=== PATIENT | male | born 1965 | race American Indian/Alaskan Native ===

== ENCOUNTER 2018-02-09 23:07 | Emergency (ER) | payer MEDICARE ==
[2018-02-09] MEDS ORDERED: ASPIRIN ONE (23:39)
[2018-02-09] MEDS ORDERED: ASPIRIN PO ONE (23:43)
[2018-02-09 23:44] VITALS: BP 119/84
[2018-02-10 00:21] LABS: Basophils # (Auto) 0.1 K/mm3 (0.0-0.1); Basophils % (Auto) 0.6 % (0.0-1.8); Eosinophils # (Auto) 0.2 K/mm3 (0.0-0.4); Eosinophils % (Auto) 2.6 % (0.0-4.3); Hematocrit 45.3 % (35.5-45.6); Hemoglobin 15.2 gm/dl (11.8-15.2); Lymphocytes # (Auto) 2.3 K/mm3 (1.2-5.4); Lymphocytes % (Auto) 28.6 % (13.4-35.0); Mean Corpuscular HGB Conc 34 % (32-34); Mean Corpuscular Hemoglobin 29 pg (28-32); Mean Corpuscular Volume 87 fl (84-94); Monocytes # (Auto) 0.9 K/mm3 (0.0-0.8); Monocytes % (Auto) 11.4 % (0.0-7.3); Platelet Count 154 K/mm3 (140-440); Red Blood Count 5.23 M/mm3 (3.65-5.03); Red Cell Distribution Width 13.2 % (13.2-15.2)
[2018-02-10 00:36] LABS: BUN/Creatinine Ratio 15; Blood Urea Nitrogen 16 mg/dL (9-20); Calcium 9.5 mg/dL (8.4-10.2); Hemolysis Index 8
== END 2018-02-10 02:30 | disposition left against medical advice (07) ==
LOC: ED 23:07
DX: R07.9 Chest pain, unspecified (principal); Z53.21 Procedure and treatment not carried out due to patient leaving prior to being seen by health care provider
CPT/HCPCS: 36415; 80048; 84484; 85025; 93005; 93010

== ENCOUNTER 2019-01-18 09:10 | Emergency (ER) | payer MEDICARE ==
[2019-01-18 09:28] VITALS: BP 140/97
[2019-01-18 09:49] LABS: Bacteria,Urine 1+ /HPF (Negative); Bilirubin,Urine NEG (Negative); Blood,Urine NEG (Negative); Color,Urine Amber (Yellow); Mucus,Urine 3+ /HPF; Sperm,Urine FEW /HPF (NP)
[2019-01-18 09:55] LABS: Benzodiazepines Screen,Urine PRESUMPTIVE NEGATIVE; Methadone Screen,Urine PRESUMPTIVE NEGATIVE; Opiate Screen,Urine PRESUMPTIVE NEGATIVE
[2019-01-18 10:00] LABS: Basophils % (Auto) 0.7 % (0.0-1.8); Eosinophils % (Auto) 0.7 % (0.0-4.3); Hematocrit 41.3 % (35.5-45.6); Lymphocytes # (Auto) 1.1 K/mm3 (1.2-5.4); Lymphocytes % (Auto) 19.2 % (13.4-35.0); Mean Corpuscular HGB Conc 34 % (32-34); Mean Corpuscular Volume 89 fl (84-94); Monocytes # (Auto) 0.7 K/mm3 (0.0-0.8); Monocytes % (Auto) 11.7 % (0.0-7.3); Platelet Count 127 K/mm3 (140-440); Red Blood Count 4.65 M/mm3 (3.65-5.03); Red Cell Distribution Width 12.9 % (13.2-15.2)
[2019-01-18 10:11] LABS: BUN/Creatinine Ratio 18; Blood Urea Nitrogen 16 mg/dL (9-20); Calcium 9.5 mg/dL (8.4-10.2); Hemolysis Index 12
[2019-01-18 10:11] LABS: Amphetamine Screen,Urine PRESUMPTIVE POSITIVE; Cannabinoid Screen,Urine PRESUMPTIVE POSITIVE; Cocaine Screen,Urine PRESUMPTIVE POSITIVE
--- NOTE | 2019-01-18 10:26 | Emergency Department Report ---
HPI - General Chief Complaint: Psych Time Seen by Provider: 01/18/19 10:05 - HPI HPI: [facility] The patient is a 53-year-old male presenting with a chief complaint suicidal ideation. Patient states for the past few days he's had suicidal ideation. The patient has a history of schizophrenia and states that his plan was to hang himself. Patient denies any recent attempts at harming himself Location: Mental state Duration: 2 days Quality: Suicidal Severity: Severe Modifying factors: [see above] Context: [see above] Mode of transportation: [not driving] ED Past Medical Hx - Past Medical History Previous Medical History?: Yes Hx Psychiatric Treatment: Yes (schizophrenia and depression) Additional medical history: acid reflux - Surgical History Past Surgical History?: No - Family History Family history: no significant - Social History Smoking Status: Current Every Day Smoker Substance Use Type: Cocaine - Medications Home Medications: Home Medications Medication Instructions Recorded Confirmed Last Taken Type Buspirone HCl [busPIRone] 15 mg PO QID 05/02/16 05/02/16 Unknown History Duloxetine HCl [DULoxetine] 30 mg PO DAILY 05/02/16 05/02/16 Unknown History QUEtiapine [SEROquel] 200 mg PO QAM 05/02/16 05/02/16 Unknown History Quetiapine Fumarate [QUEtiapine 400 mg PO QHS 05/02/16 05/02/16 Unknown History Fumarate] Ranitidine HCl [Zantac 150 MG TAB] 150 mg PO AC 05/02/16 05/02/16 Unknown History ED Review of Systems ROS: Stated complaint: HEARING VOICES Other details as noted in HPI Constitutional: no symptoms reported Eyes: denies: eye pain ENT: denies: throat pain Respiratory: no symptoms reported Cardiovascular: denies: chest pain Endocrine: no symptoms reported Gastrointestinal: denies: abdominal pain Genitourinary: denies: dysuria Musculoskeletal: denies: back pain Neurological: denies: headache Psychiatric: suicidal thoughts Physical Exam - Physical Exam Vital Signs: Vital Signs 01/18/19 09:20 Temperature 98.3 F Pulse Rate 61 Respiratory 16 Rate Blood Pressure 140/97 [Left] O2 Sat by Pulse 100 Oximetry Physical Exam: GENERAL: The patient is well-developed well-nourished male lying on stretcher not appearing to be in acute distress. [] HEENT: Normocephalic. Atraumatic. Extraocular motions are intact. Patient has moist mucous membranes. NECK: Supple. Trachea midline CHEST/LUNGS: Clear to auscultation. There is no respiratory distress noted. HEART/CARDIOVASCULAR: Regular. There is no tachycardia. There is no gallop rub or murmur. ABDOMEN: Abdomen is soft, nontender. Patient has normal bowel sounds. There is no abdominal distention. SKIN: There is no rash. There is no edema. There is no diaphoresis. NEURO: The patient is awake, alert, and oriented. The patient is cooperative. The patient has no focal neurologic deficits. The patient has normal speech MUSCULOSKELETAL: There is no evidence of acute injury. ED Course Vital Signs 01/18/19 09:20 Temperature 98.3 F Pulse Rate 61 Respiratory 16 Rate Blood Pressure 140/97 [Left] O2 Sat by Pulse 100 Oximetry ED Medical Decision Making - Lab Data Result diagrams: 01/18/19 09:45 01/18/19 09:45 Laboratory Tests 01/18/19 01/18/19 01/18/19 09:30 09:34 09:45 WBC RBC Hgb Hct MCV MCH MCHC RDW Plt Count Lymph % (Auto) [place] % (Auto) Eos % (Auto) Baso % (Auto) Lymph # [place] # Eos # Baso # Seg Neutrophils % Seg Neutrophils # Sodium Potassium Chloride Carbon Dioxide Anion Gap BUN Creatinine Estimated GFR BUN/Creatinine Ratio Glucose Calcium Urine Color [place] Urine Turbidity Clear Urine pH 5.0 Ur Specific [place] 1.033 H Urine Protein 100 mg/dl Urine Glucose (UA) Neg Urine Ketones 20 Urine Blood Neg Urine Nitrite Neg Urine Bilirubin Neg Urine Urobilinogen 4.0 Ur Leukocyte Esterase Neg Urine WBC (Auto) 5.0 Urine RBC (Auto) 2.0 U Epithel Cells (Auto) 1.0 Urine Bacteria (Auto) 1+ Urine Mucus 3+ Urine Sperm Few Salicylates < 0.3 L Urine Opiates Screen Presumptive negative Urine Methadone Screen Presumptive negative Acetaminophen Ur Barbiturates Screen Presumptive negative Ur Phencyclidine Scrn Presumptive negative Ur Amphetamines Screen Presumptive positive U Benzodiazepines Scrn Presumptive negative Urine Cocaine Screen Presumptive positive U Marijuana (THC) Screen Presumptive positive Drugs of Abuse Note Disclamer Plasma/Serum Alcohol 01/18/19 01/18/19 01/18/19 09:45 09:45 09:45 WBC RBC Hgb Hct MCV MCH MCHC RDW Plt Count Lymph % (Auto) [place] % (Auto) Eos % (Auto) Baso % (Auto) Lymph # [place] # Eos # Baso # Seg Neutrophils % Seg Neutrophils # Sodium 143 Potassium 3.8 Chloride 102.7 Carbon Dioxide 25 Anion Gap 19 BUN 16 Creatinine 0.9 Estimated GFR > 60 BUN/Creatinine Ratio 18 Glucose 100 Calcium 9.5 Urine Color Urine Turbidity Urine pH Ur Specific [place] Urine Protein Urine Glucose (UA) Urine Ketones Urine Blood Urine Nitrite Urine Bilirubin Urine Urobilinogen Ur Leukocyte Esterase Urine WBC (Auto) Urine RBC (Auto) U Epithel Cells (Auto) Urine Bacteria (Auto) Urine Mucus Urine Sperm Salicylates Urine Opiates Screen Urine Methadone Screen Acetaminophen < 5.0 L Ur Barbiturates Screen Ur Phencyclidine Scrn Ur Amphetamines Screen U Benzodiazepines Scrn Urine Cocaine Screen U Marijuana (THC) Screen Drugs of Abuse Note Plasma/Serum Alcohol < 0.01 01/18/19 09:45 WBC 5.9 RBC 4.65 Hgb 14.0 Hct 41.3 MCV 89 MCH 30 MCHC 34 RDW 12.9 L Plt Count 127 L Lymph % (Auto) 19.2 [place] % (Auto) 11.7 H Eos % (Auto) 0.7 Baso % (Auto) 0.7 Lymph # 1.1 L [place] # 0.7 Eos # 0.0 Baso # 0.0 Seg Neutrophils % 67.7 Seg Neutrophils # 4.0 Sodium Potassium Chloride Carbon Dioxide Anion Gap BUN Creatinine Estimated GFR BUN/Creatinine Ratio Glucose Calcium Urine Color Urine Turbidity Urine pH Ur Specific [place] Urine Protein Urine Glucose (UA) Urine Ketones Urine Blood Urine Nitrite Urine Bilirubin Urine Urobilinogen Ur Leukocyte Esterase Urine WBC (Auto) Urine RBC (Auto) U Epithel Cells (Auto) Urine Bacteria (Auto) Urine Mucus Urine Sperm Salicylates Urine Opiates Screen Urine Methadone Screen Acetaminophen Ur Barbiturates Screen Ur Phencyclidine Scrn Ur Amphetamines Screen U Benzodiazepines Scrn Urine Cocaine Screen U Marijuana (THC) Screen Drugs of Abuse Note Plasma/Serum Alcohol - Differential Diagnosis suicidal ideation Critical care attestation.: If time is entered above; I have spent that time in minutes in the direct care of this critically ill patient, excluding procedure time. ED Disposition Clinical Impression: Suicidal ideation, Cocaine abuse Disposition: [id number] PSY HOSP/PSY UNIT Is pt being admited?: No Does the pt Need Aspirin: No Condition: Serious Time of Disposition: 10:27 (awaiting acceptance)
[2019-01-18] MEDS ORDERED: BENADRYL IM PRN (13:08)
[2019-01-18] MEDS ORDERED: ATIVAN IM PRN (13:08)
[2019-01-18] MEDS ORDERED: HALDOL IM PRN (13:08)
== END 2019-01-18 18:22 | disposition home or self-care (01) ==
LOC: EEVIPCON 09:10 → ED 09:10
DX: F32.9 Major depressive disorder, single episode, unspecified (principal); F20.9 Schizophrenia, unspecified; F14.10 Cocaine abuse, uncomplicated; F17.200 Nicotine dependence, unspecified, uncomplicated
CPT/HCPCS: 36415; 80048; 80307; 81001; 85025; 99284; G0480; 80320

== ENCOUNTER 2019-01-18 17:05 | Inpatient (IN) | payer MEDICARE ==
[2019-01-18] MEDS ORDERED: VISTARIL PO PRN (17:26)
[2019-01-18] MEDS ORDERED: HALDOL IM PRN (20:47)
[2019-01-18] MEDS ORDERED: HALDOL PO PRN (20:47)
[2019-01-18] MEDS ORDERED: ATIVAN PO PRN (20:48)
[2019-01-18] MEDS ORDERED: ATIVAN IM PRN (20:48)
[2019-01-19 09:15] LABS: Chol/HDL Ratio 3.97 %
[2019-01-19] MEDS: HABITROL TD SCH (12:09)
--- NOTE | 2019-01-19 13:55 | History and Physical Report ---
GP History & Physical - History of Present Illness Date of admission: 01/18/19 Date of Examination: 01/19/19 Reason for Admission: Danger to self, Impaired reality testing, Psychopathology interference, Severe anxiety/depression Chief Complaint: Hearing voices to kill myself, depressed and suicidal. History of Present Illness: The patient is a 53yo single disabled AAM with history of Schizophrenia, Depression and Cocaine use disorder. He presents with severely depressed mood, suicidal thoughts with plans and intent, auditory hallucinations commanding him to kill himself, paranoia after he relapsed to smoking Crack Cocaine following a year of being abstinent. In my interview with the patient he reports that he started using Crack Cocaine 4 days ago, smoked daily, endorses racing thoughts, inability to sleep, feeling very paranoid and auditory hallucinations. He is very distressed by these experiences leading him to consider killing himself by cutting his wrist. He denies abusing other substances but UDS was positive with Cocaine, THC and Amphetamines. He denies homicidal thoughts. No panic attacks. No symptoms suggestive of OCD or PTSD. In the past he found Seroquel beneficial and wants to resume taking it. Legal Status: Voluntary Patient Problems: Current Active Problems Cocaine use disorder (Acute) Major depress, sev w/ psych (Acute) Paranoid schizophrenia (Acute) Reaction to Hospitalization: Accepting Substance History - Substance History Drug Use: cocaine, marijuana, methamphetamine Hx Tobacco Use: Yes Tobacco Type: Cigarettes Cigarettes Packs Per Day: 1 Alcohol Use: No Past psychiatric history - Past Medical History Past Medical History: GERD - past Psychiatric treatment and history Psych: Addictions, Depression, Schizophrenia - Social History Social history: single, lives with family, smoking Review of Systems All systems: negative Psychiatric: suicidal ideation, hallucinations, paranoia, depression, difficulties concentrating Results - Results Labs/Vitals: Laboratory Last Values 5.2 % (4-6) 01/18/19 09:45 Triglycerides 59 mg/dL (2-149) 01/19/19 08:41 Cholesterol 179 mg/dL (50-199) 01/19/19 08:41 138 mg/dL (50-130) H 01/19/19 08:41 45 mg/dL (40-59) 01/19/19 08:41 3.97 % 01/19/19 08:41 Last Vital Signs Temp 98.7 F 01/19/19 09:31 Pulse 67 01/19/19 09:31 Resp 18 01/19/19 07:00 BP 100/58 01/19/19 09:31 Pulse Ox 99 01/19/19 09:31 Physical Examination - Constitutional Vitals: Vital Signs Temp Pulse Resp BP Pulse Ox 98.7 F 67 18 100/58 99 01/19/19 09:31 01/19/19 09:31 01/19/19 07:00 01/19/19 09:31 01/19/19 09:31 Temperature -Last 24 Hours Temperature 98.7 F Temperature 98.7 F Temperature 97.6 F Temperature 98.6 F Temperature 98.6 F General appearance: Present: no acute distress - EENT Eyes: Present: PERRL, EOM intact ENT: hearing intact, clear oral mucosa - Neck Neck: Present: supple, normal ROM - Respiratory Respiratory effort: normal Mental Status Exam - Vital signs Last Vital Signs Temp 98.7 F 01/19/19 09:31 Pulse 67 01/19/19 09:31 Resp 18 01/19/19 07:00 BP 100/58 01/19/19 09:31 Pulse Ox 99 01/19/19 09:31 - Exam Orientation: time, place, person Affect: depressed Mood: congruent with affect Thought content: delusions, paranoia Thought Process: Intact Perceptions: hallucinations Speech: normal rate and pattern Concentration: focused Motor activity: lethargic Level of consciousness: alert Memory: Intact Sleep Symptoms: Difficulty Falling Asleep Interaction: cooperative Mini mental status exam(if necessary): 24-30 Assessment and Plan - Psychiatric problem (1) Paranoid schizophrenia Current Visit: Yes Status: Acute (2) Cocaine use disorder Current Visit: Yes Status: Acute (3) Major depress, sev w/ psych Current Visit: Yes Status: Acute Physician Certification - Certification Statement Physician Certification Statement: This is an acknowledgement statement that JER MELGAR is a 53 year old M who requires inpatient psychiatric admission for treatment which could reasonably be expected to improve the patient's condition for Schizophrenia Estimated period of time patient will need to remain in the hospital: 7 Plan for post-hospital care: Outpatient Care PLAN Patient will be admitted for inpatient psychiatric evaluation, medication adjustment and close monitoring The patient's behavior, mood, sleep and appetite will be closely monitored. Patient will be enrolled in individual and group therapeutic sessions and encouraged to attend. Patient will be provided with a safe and structured environment. Patient's physical health needs will be addressed by the Hospitalist. Social Assessment will be completed and the Senior Merchandiser will work with patient and family to ensure a suitable and safe disposition Medication adjustment will be made as clinically indicated Seroquel resumed at home dose. The patient agreed on the treatment plan, understood the risk, benefit, alternative treatment, potential consequence of no treatment, and gave informed consent.
[2019-01-19] MEDS ORDERED: NON-FORMULARY (Ranitidine Hcl [Zantac] 150 MG) PO SCH (16:30)
[2019-01-19] MEDS: CYMBALTA PO SCH (17:37)
[2019-01-19] MEDS: PEPCID PO SCH (21:28)
[2019-01-19] MEDS ORDERED: NON-FORMULARY (Quetiapine Fumarate [Quetiapine Fumarate] 400 MG) PO SCH (22:00)
[2019-01-20] MEDS: PEPCID PO SCH ×2 (09:34→21:06)
[2019-01-20] MEDS: CYMBALTA PO SCH (09:34)
[2019-01-20] MEDS: HABITROL TD SCH (09:35)
--- NOTE | 2019-01-20 10:47 | Progress Note ---
Subjective Date of service: 01/20/19 Principal diagnosis: Paranoid Schizophrenia, Cocaine use disorder Subjective Comment: Patient reports feeling over-sedated. He wants to take Seroquel only at night. He reports feeling depressed and suicidal. He endorses auditory hallucinations - hears voices telling him to kill himself. He also endorses felling paranoid. Objective - Criteria for Continued Treatment Criteria for Continued Treatment: Improving Level of Functioning, Reducing Isolative Behaviors, Understanding Diagnosis and need for Medication, Improving Treatment / Medication Compliance, Stablizing Level of Functioning, Improving Emotional/Socia - Mental Status Mental Status: Oriented x 3 - Objective Observation Participation Level: Moderate Assessment and Plan - Patient Problems (1) Paranoid schizophrenia Current Visit: Yes Status: Acute (2) Cocaine use disorder Current Visit: Yes Status: Acute (3) Major depress, sev w/ psych Current Visit: Yes Status: Acute Plan to address problem: PLAN: Continue inpatient treatment for medication adjustment and close monitoring The patient's behavior, mood, sleep and appetite will be closely monitored. Patient will be enrolled in individual and group therapeutic sessions and encouraged to attend. Patient will be provided with a safe and structured environment. Patient's physical health needs will be addressed by the Hospitalist. Social Assessment will be completed and the Vrt Mechanic will work with patient and family to ensure a suitable and safe disposition Medication adjustment will be made as clinically indicated Will decrease Seroquel to 200mg qhs due to excessive sedation The patient agreed on the treatment plan, understood the risk, benefit, alternative treatment, potential consequence of no treatment, and gave informed consent.
[2019-01-21] MEDS: HABITROL TD SCH (11:01)
[2019-01-21] MEDS: CYMBALTA PO SCH (11:01)
[2019-01-21] MEDS: PEPCID PO SCH ×2 (11:02→21:00)
--- NOTE | 2019-01-21 19:03 | Progress Note ---
Subjective Date of service: 01/21/19 Principal diagnosis: Paranoid Schizophrenia, Cocaine use disorder Subjective Comment: Patient wants his dose of Seroquel increased. He continues to feel depressed and suicidal. He endorses auditory hallucinations - hears voices telling him to kill himself. He also endorses felling paranoid. He reports that his mind is racing. He received PRN Ativan for anxiety and found it beneficial. He is compliant with medications and denies side effects. Objective - Criteria for Continued Treatment Criteria for Continued Treatment: Improving Level of Functioning, Reducing Isolative Behaviors, Improving Treatment / Medication Compliance, Stablizing Level of Functioning, Improving Emotional/Socia - Mental Status Mental Status: Oriented x 3 - Objective Observation Participation Level: Moderate Assessment and Plan - Patient Problems (1) Paranoid schizophrenia Current Visit: Yes Status: Acute (2) Cocaine use disorder Current Visit: Yes Status: Acute (3) Major depress, sev w/ psych Current Visit: Yes Status: Acute Plan to address problem: PLAN: Continue inpatient treatment for medication adjustment and close monitoring The patient's behavior, mood, sleep and appetite will be closely monitored. Patient will be enrolled in individual and group therapeutic sessions and encouraged to attend. Patient will be provided with a safe and structured environment. Patient's physical health needs will be addressed by the Hospitalist. Social Assessment will be completed and the Graduate Teaching Associate will work with patient and family to ensure a suitable and safe disposition Medication adjustment will be made as clinically indicated Seroquel increased to 100mg bid per patient's request The patient agreed on the treatment plan, understood the risk, benefit, alternative treatment, potential consequence of no treatment, and gave informed consent.
[2019-01-22] MEDS: HABITROL TD SCH (10:05)
[2019-01-22] MEDS: CYMBALTA PO SCH (10:09)
[2019-01-22] MEDS: PEPCID PO SCH ×2 (10:09→21:10)
[2019-01-22] MEDS: WELLBUTRIN XL PO SCH (17:16)
--- NOTE | 2019-01-23 06:46 | Progress Note ---
Subjective Date of service: 01/22/19 Principal diagnosis: Paranoid Schizophrenia, Cocaine use disorder Subjective Comment: Patient reports no improvement. He continues to feel depressed and suicidal. He endorses auditory hallucinations - hears voices telling him to kill himself. He also endorses felling paranoid. He is compliant with medications and denies side effects. Objective - Criteria for Continued Treatment Criteria for Continued Treatment: Improving Level of Functioning, Reducing Isolative Behaviors, Improving Treatment / Medication Compliance, Stablizing Level of Functioning, Improving Emotional/Socia - Mental Status Mental Status: Oriented x 3 - Objective Observation Participation Level: Moderate Assessment and Plan - Patient Problems (1) Paranoid schizophrenia Current Visit: Yes Status: Acute (2) Cocaine use disorder Current Visit: Yes Status: Acute (3) Major depress, sev w/ psych Current Visit: Yes Status: Acute Plan to address problem: PLAN: Continue inpatient treatment for medication adjustment and close monitoring The patient's behavior, mood, sleep and appetite will be closely monitored. Patient will be enrolled in individual and group therapeutic sessions and encouraged to attend. Patient will be provided with a safe and structured environment. Patient's physical health needs will be addressed by the Hospitalist. Social Assessment will be completed and the Cashier Greeter will work with patient and family to ensure a suitable and safe disposition Medication adjustment will be made as clinically indicated Seroquel increased to 100mg tid for psychosis and mood. Wellbutrin XL 150mg qam started. The patient agreed on the treatment plan, understood the risk, benefit, alternative treatment, potential consequence of no treatment, and gave informed consent.
[2019-01-23] MEDS: PEPCID PO SCH (09:34)
[2019-01-23] MEDS: CYMBALTA PO SCH (09:34)
[2019-01-23] MEDS: WELLBUTRIN XL PO SCH (09:35)
[2019-01-23] MEDS: HABITROL TD SCH (09:35)
--- NOTE | 2019-01-23 10:45 | Progress Note ---
Subjective Date of service: 01/23/19 Principal diagnosis: Paranoid Schizophrenia, Cocaine use disorder Subjective Comment: Patient reports no improvement. He continues to feel depressed and suicidal. He endorses auditory hallucinations - hears voices telling him to kill himself. He also endorses being paranoid. He is compliant with medications and denies side effects. Objective - Criteria for Continued Treatment Criteria for Continued Treatment: Improving Level of Functioning, Improving Treatment / Medication Compliance, Stablizing Level of Functioning, Improving Emotional/Socia - Mental Status Mental Status: Oriented x 3 - Objective Observation Participation Level: Minimal Reason(s) For Not Participating: Behaviors Assessment and Plan - Patient Problems (1) Paranoid schizophrenia Current Visit: Yes Status: Acute (2) Cocaine use disorder Current Visit: Yes Status: Acute (3) Major depress, sev w/ psych Current Visit: Yes Status: Acute Plan to address problem: PLAN: Continue inpatient treatment for medication adjustment and close monitoring The patient's behavior, mood, sleep and appetite will be closely monitored. Patient will be enrolled in individual and group therapeutic sessions and encouraged to attend. Patient will be provided with a safe and structured environment. Patient's physical health needs will be addressed by the Hospitalist. Social Assessment will be completed and the Mail Machine Operator will work with patient and family to ensure a suitable and safe disposition Medication adjustment will be made as clinically indicated Continue Seroquel 100mg tid for psychosis and mood. Wellbutrin XL 150mg qam for depression The patient agreed on the treatment plan, understood the risk, benefit, alternative treatment, potential consequence of no treatment, and gave informed consent.
[2019-01-23] MEDS: PROTONIX PO SCH (21:01)
[2019-01-24] MEDS: HABITROL TD SCH (10:00)
--- NOTE | 2019-01-24 10:01 | Progress Note ---
Subjective Date of service: 01/24/19 Principal diagnosis: Paranoid Schizophrenia, Cocaine use disorder Subjective Comment: Patient reports some improvement but continues to feel depressed and suicidal. He endorses auditory hallucinations - hears voices telling him to kill himself. He also endorses being paranoid. He is compliant with medications and denies side effects. He consents to increasing his anti-depressant. Objective - Criteria for Continued Treatment Criteria for Continued Treatment: Improving Level of Functioning, Reducing Isolative Behaviors, Stablizing Level of Functioning, Improving Emotional/Socia - Mental Status Mental Status: Oriented x 3 - Objective Observation Participation Level: Minimal Reason(s) For Not Participating: Not Feeling Well Assessment and Plan - Patient Problems (1) Paranoid schizophrenia Current Visit: Yes Status: Acute (2) Cocaine use disorder Current Visit: Yes Status: Acute (3) Major depress, sev w/ psych Current Visit: Yes Status: Acute Plan to address problem: PLAN: Continue inpatient treatment for medication adjustment and close monitoring The patient's behavior, mood, sleep and appetite will be closely monitored. Patient will be enrolled in individual and group therapeutic sessions and encou raged to attend. Patient will be provided with a safe and structured environment. Patient's physical health needs will be addressed by the Hospitalist. Social Assessment will be completed and the Health Insurance Sales Agent will work with patient and family to ensure a suitable and safe disposition Medication adjustment will be made as clinically indicated Continue Seroquel 100mg tid for psychosis and mood. Continue Wellbutrin XL 150mg qam for depression Increase Cymbalta to 90mg qd for depression The patient agreed on the treatment plan, understood the risk, benefit, alternative treatment, potential consequence of no treatment, and gave informed consent.
[2019-01-24] MEDS: CYMBALTA PO SCH ×2 (10:03→13:31)
[2019-01-24] MEDS: PROTONIX PO SCH ×2 (10:03→21:35)
[2019-01-24] MEDS: WELLBUTRIN XL PO SCH (10:06)
[2019-01-24] MEDS: DESYREL PO PRN (22:40)
[2019-01-25] MEDS: WELLBUTRIN XL PO SCH (09:53)
[2019-01-25] MEDS: PROTONIX PO SCH ×2 (09:54→21:25)
[2019-01-25] MEDS: CYMBALTA PO SCH (09:54)
[2019-01-25] MEDS: HABITROL TD SCH (09:56)
--- NOTE | 2019-01-25 10:27 | Progress Note ---
Subjective Date of service: 01/25/19 Principal diagnosis: Paranoid Schizophrenia, Cocaine use disorder Subjective Comment: Patient reports improvement in his mood. He completely denies SI/HI/AVH/Paranoia. He is compliant with medications and denies side effects. Will discharge in am tomorrow if he continues to do well. Objective - Criteria for Continued Treatment Criteria for Continued Treatment: Improving Level of Functioning, Stablizing Level of Functioning, Improving Emotional/Socia, Decreasing Frequency of Hospitalization - Mental Status Mental Status: Oriented x 3 - Objective Observation Participation Level: Full Assessment and Plan - Patient Problems (1) Paranoid schizophrenia Current Visit: Yes Status: Acute (2) Cocaine use disorder Current Visit: Yes Status: Acute (3) Major depress, sev w/ psych Current Visit: Yes Status: Acute Plan to address problem: PLAN: Continue inpatient treatment for medication adjustment and close monitoring The patient's behavior, mood, sleep and appetite will be closely monitored. Patient will be enrolled in individual and group therapeutic sessions and encouraged to attend. Patient will be provided with a safe and structured environment. Patient's physical health needs will be addressed by the Hospitalist. Social Assessment will be completed and the Tier And Detonator will work with patient and family to ensure a suitable and safe disposition Medication adjustment will be made as clinically indicated Continue Seroquel 100mg tid for psychosis and mood. Continue Wellbutrin XL 150mg qam for depression Increase Cymbalta to 90mg qd for depression The patient agreed on the treatment plan, understood the risk, benefit, [place] treatment, potential consequence of no treatment, and gave informed consent.
[2019-01-25] MEDS: DESYREL PO PRN (21:25)
[2019-01-26 09:00] VITALS: BP 123/70
[2019-01-26] MEDS: PROTONIX PO SCH (09:06)
[2019-01-26] MEDS: CYMBALTA PO SCH (09:07)
[2019-01-26] MEDS: HABITROL TD SCH (09:08)
[2019-01-26] MEDS: WELLBUTRIN XL PO SCH (09:08)
--- NOTE | 2019-01-26 11:00 | Discharge Summary ---
Providers - Providers Date of Admission: 01/18/19 18:41 Date of discharge: 01/26/19 Attending physician: LLUVIA BARRETT MD 01/18/19 17:15 Consult to Physician [CONS] Routine Comment: Consulting Provider: JONATHON WALLS Physician Instructions: History & Physical Reason For Exam: medical management 01/23/19 08:03 Consult to Dietitian/Nutrition [CONS] Routine Physician Instructions: Reason For Exam: Reason for Consult: Pt needs oral supplement [facility] Reason for admission: depressed mood, suicidal, auditory hallucinations and paranoia Condition: Good Hospital course: The patient was provided inpatient psychiatric treatment with safe and supp ortive environment, group therapy, individual counseling, psychiatric medication, medication adjustment, adverse effect monitor, medical evaluation, medical treatment, social service assessment, family/social support meeting, placement assessment and psycho-education. The patients mood, anxiety, thoughts, stress management skill, cognition, impulse/anger control, motivation, understanding of disease, compliance to treatment and appreciation on family/social support are improved and stabilized. At the time of discharge, the patient had no suicidal ideas, no homicidal ideas, no aggressive thoughts, no endangering behavior and no debilitating adverse effects. The patient agreed on the treatment plan, understood the risk, benefit, alternative treatment, potential consequence of no treatment, and gave informed consent. The patient was advised to be compliant with medications, not to use drugs and not to drink alcohol. The patient understands that if suicidal ideas, homicidal ideas, or any endangering thoughts arise, the patient should immediately seek for emergent assistance including but not limited to crisis hot line and emergency room. Follow up with out-patient Psychiatrist and PCP within 14 - 21 days of discharge. Disposition: DC-01 TO HOME OR SELFCARE Allergies/Adverse Reactions: Allergies No Known Allergies Allergy (Verified 10/26/15 19:54) Vital Signs: Last Vital Signs Temp 98.3 F 01/26/19 09:33 Pulse 69 01/26/19 09:33 Resp 16 01/26/19 09:33 BP 123/70 01/26/19 09:33 Pulse Ox 99 01/26/19 09:33 Last Lab: Laboratory Last Values 5.2 % (4-6) 01/18/19 09:45 Triglycerides 59 mg/dL (2-149) 01/19/19 08:41 Cholesterol 179 mg/dL (50-199) 01/19/19 08:41 138 mg/dL (50-130) H 01/19/19 08:41 45 mg/dL (40-59) 01/19/19 08:41 3.97 % 01/19/19 08:41 - Discharge Diagnoses (1) Paranoid schizophrenia Status: Acute (2) Cocaine use disorder Status: Acute (3) Major depress, sev w/ psych Status: Acute Core Measure Documentation - Palliative Care Palliative Care/ Comfort Measures: Not Applicable - Core Measures Any of the following diagnoses?: none - VTE Discharge Requirements Deep Vein Thrombosis/Pulmonary Embolism Present on Admission: No Has pt received <5 days of overlap therapy or INR<2.0: No Anticoagulant overlap therapy prescribed at discharge: No Contraindication No Overlap Therapy order at DC: Not Indicated Exam - Constitutional Vitals: Temp Pulse Resp BP Pulse Ox 98.3 F 69 16 123/70 99 01/26/19 09:33 01/26/19 09:33 01/26/19 09:33 01/26/19 09:33 01/26/19 09:33 General appearance: Present: no acute distress - EENT Eyes: Present: PERRL, EOM intact ENT: hearing intact, clear oral mucosa - Neck Neck: Present: supple, normal ROM - Respiratory Respiratory effort: normal Plan Activity: no restrictions Weight Bearing Status: Weight Bear as Tolerated Diet: regular Follow up with: MARIE LAI MD [Primary Care Provider] - 7 Days Prescriptions: traZODone [Desyrel] 50 mg PO QHS PRN #30 tablet PRN Reason: Insomnia DULoxetine [Cymbalta] 90 mg PO DAILY #90 capsule QUEtiapine [SEROquel] 100 mg PO TID #90 tablet hydrOXYzine PAMOATE [Vistaril] 50 mg PO Q6H PRN #60 capsule PRN Reason: Anxiety buPROPion XL [Wellbutrin XL] 150 mg PO QDAY #30 tablet
== END 2019-01-26 12:00 | disposition home or self-care (01) | DRG 885 ==
LOC: 3A 17:05 → UNDOADMIN 17:05 → 5A 18:41
PROVIDERS: ADMIT Psychiatry & Neurology Psychiatry; ATTEND Psychiatry & Neurology Psychiatry
DX: F32.3 Major depressive disorder, single episode, severe with psychotic features (principal); F17.210 Nicotine dependence, cigarettes, uncomplicated; K21.9 Gastro-esophageal reflux disease without esophagitis; F15.90 Other stimulant use, unspecified, uncomplicated; F14.988 Cocaine use, unspecified with other cocaine-induced disorder; F12.90 Cannabis use, unspecified, uncomplicated
CPT/HCPCS: 36415; 80048; 80061; 80307; 80320; 81001; 83036; 85025; G0378; G0480; Q0177

== ENCOUNTER 2019-03-19 12:21 | Emergency (ER) | payer MEDICARE ==
--- NOTE | 2019-03-19 12:42 | Event Note ---
ED Screening Note Date of service: 03/19/19 Time: 12:39 ED Screening Note: 53 y/o male comes in for SI. Reports that he hear voices to harm himself. Has been off his medication in a week. This initial assessment/diagnostic orders/clinical plan/treatment(s) is/are subject to change based on patients health status, clinical progression and re- assessment by fellow clinical providers in the ED. Further treatment and workup at subsequent clinical providers discretion. Patient/guardian urged not to elope from the ED as their condition may be serious if not clinically assessed and managed. Initial orders include:
[2019-03-19 13:28] LABS: Basophils % (Auto) 0.8 % (0.0-1.8); Eosinophils # (Auto) 0.2 K/mm3 (0.0-0.4); Eosinophils % (Auto) 2.9 % (0.0-4.3); Hematocrit 44.1 % (35.5-45.6); Hemoglobin 14.7 gm/dl (11.8-15.2); Lymphocytes # (Auto) 1.5 K/mm3 (1.2-5.4); Lymphocytes % (Auto) 28.2 % (13.4-35.0); Mean Corpuscular HGB Conc 34 % (32-34); Mean Corpuscular Hemoglobin 30 pg (28-32); Mean Corpuscular Volume 89 fl (84-94); Monocytes # (Auto) 0.6 K/mm3 (0.0-0.8); Monocytes % (Auto) 10.3 % (0.0-7.3); Platelet Count 146 K/mm3 (140-440); Red Blood Count 4.97 M/mm3 (3.65-5.03); Red Cell Distribution Width 13.1 % (13.2-15.2)
[2019-03-19] MEDS ORDERED: HALDOL IM PRN (13:31)
[2019-03-19] MEDS ORDERED: ATIVAN IM PRN (13:31)
[2019-03-19 13:43] LABS: BUN/Creatinine Ratio 15; Blood Urea Nitrogen 15 mg/dL (9-20); Calcium 9.7 mg/dL (8.4-10.2); Hemolysis Index 10
--- NOTE | 2019-03-19 13:49 | Emergency Department Report ---
ED Psych HPI - General Chief Complaint: Psych Stated Complaint: EVALUATION HEARING VOICES Time Seen by Provider: 03/19/19 13:29 Source: patient, family, RN notes reviewed Mode of arrival: Ambulatory Limitations: No Limitations - History of Present Illness Initial Comments: This is a 53-year-old gentleman. The patient reports a history of schizophrenia. He presents to the ER with a complaint of painless suicidality. He reports hallucinations. He states he will run into traffic. He does not want to elaborate on watch the hallucinations are telling him to do. He denies physical pain. He denies overdose. He reports access to guns and the outside world. His symptoms are constant, painless, did not radiate anywhere, and he endorses no exacerbating or relieving factors. MD Complaint: suicidal ideation, feels depressed -: Gradual Associated Psychiatric Symptoms: suicidal ideation, auditory hallucinations Improves With: medication Worsens With: none If Self Harm: admits thoughts of, has plan - Related Data Home Medications Medication Instructions Recorded Confirmed Last Taken Ranitidine HCl [Zantac] 150 mg PO AC 05/02/16 01/19/19 Unknown Previous Rx's Medication Instructions Recorded Last Taken Type DULoxetine [Cymbalta] 90 mg PO DAILY #90 capsule 01/26/19 Unknown Rx QUEtiapine [SEROquel] 100 mg PO TID #90 tablet 01/26/19 Unknown Rx buPROPion XL [Wellbutrin XL] 150 mg PO QDAY #30 tablet 01/26/19 Unknown Rx hydrOXYzine PAMOATE [Vistaril] 50 mg PO Q6H PRN #60 capsule 01/26/19 Unknown Rx traZODone [Desyrel] 50 mg PO QHS PRN #30 tablet 01/26/19 Unknown Rx Allergies Allergy/AdvReac Type Severity Reaction Status Date / Time No Known Allergies Allergy Verified 03/19/19 12:41 ED Review of Systems ROS: Stated complaint: EVALUATION HEARING VOICES Other details as noted in HPI Constitutional: denies: fever, malaise ENT: denies: epistaxis Respiratory: denies: cough Cardiovascular: denies: chest pain Gastrointestinal: denies: abdominal pain Genitourinary: denies: dysuria Musculoskeletal: denies: back pain Skin: denies: lesions Neurological: denies: headache Psychiatric: auditory hallucinations, suicidal thoughts ED Past Medical Hx - Past Medical History Previous Medical History?: Yes Hx Congestive Heart Failure: No Hx Diabetes: No Hx Renal Disease: No Hx Arthritis: No Hx Seizures: No Hx Psychiatric Treatment: Yes (schizophrenia and depression) Hx Asthma: No Hx COPD: No Hx Dementia: No Additional medical history: acid reflux - Surgical History Past Surgical History?: Yes Hx Cholecystectomy: No Hx Appendectomy: No - Social History Smoking Status: Current Every Day Smoker Substance Use Type: None - Medications Home Medications: Home Medications Medication Instructions Recorded Confirmed Last Taken Type Ranitidine HCl [Zantac] 150 mg PO AC 05/02/16 01/19/19 Unknown History DULoxetine [Cymbalta] 90 mg PO DAILY #90 capsule 01/26/19 Unknown Rx QUEtiapine [SEROquel] 100 mg PO TID #90 tablet 01/26/19 Unknown Rx buPROPion XL [Wellbutrin XL] 150 mg PO QDAY #30 tablet 01/26/19 Unknown Rx hydrOXYzine PAMOATE [Vistaril] 50 mg PO Q6H PRN #60 capsule 01/26/19 Unknown Rx traZODone [Desyrel] 50 mg PO QHS PRN #30 tablet 01/26/19 Unknown Rx ED Physical Exam - General Limitations: No Limitations General appearance: alert, in no apparent distress - Head Head exam: Present: atraumatic, normocephalic - Eye Eye exam: Present: normal appearance, EOMI. Absent: nystagmus - ENT ENT exam: Present: normal exam, normal orophraynx, mucous membranes moist, normal external ear exam - Neck Neck exam: Present: normal inspection, full ROM. Absent: tenderness, meningismus - Respiratory Respiratory exam: Present: normal lung sounds bilaterally. Absent: respiratory distress, wheezes, rales, rhonchi, stridor, chest wall tenderness - Cardiovascular Cardiovascular Exam: Present: regular rate, normal rhythm, normal heart sounds. Absent: bradycardia, tachycardia, irregular rhythm, systolic murmur, diastolic murmur, rubs, gallop - GI/Abdominal GI/Abdominal exam: Present: soft. Absent: distended, tenderness, guarding, rebound, rigid, pulsatile mass - Rectal Rectal exam: Present: deferred - Extremities Exam Extremities exam: Present: normal inspection, full ROM, other (2+ pulses noted in the bilateral upper, lower extremities. Compartments soft. No long bony tenderness. The pelvis is stable.). Absent: calf tenderness - Back Exam Back exam: Present: normal inspection, full ROM. Absent: tenderness, CVA tenderness (R), CVA tenderness (L), paraspinal tenderness, vertebral tenderness - Neurological Exam Neurological exam: Present: alert, oriented X3, other (Extraocular movements intact. Tongue midline. No facial droop. Facial sensation intact to light touch in the V1, V2, V3 distribution bilaterally. 5 and 5 strength in 4 extremities.. Sensation is intact to light touch in 4 extremities.). Absent: motor sensory deficit - Psychiatric Psychiatric exam: Present: flat affect, suicidal ideation - Skin Skin exam: Present: warm, dry, intact, normal color. Absent: rash ED Course Vital Signs 03/19/19 12:39 Temperature 98.3 F Pulse Rate 64 Respiratory 16 Rate Blood Pressure 153/101 O2 Sat by Pulse 100 Oximetry - Reevaluation(s) Reevaluation #1: 03/19/19 15:04 Differential diagnosis, including not limited to: Psychosis, medical clearance for psychiatric placement Assessment and plan a 23-year-old gentleman who endorses suicidality. He endorses no acute medical complaints. His physical exam is unremarkable. His vital signs are unremarkable. He is resting comfortably in his stretcher. He does not appear to have an acute medical emergency at this time. A psychiatric consultation is requested. The patient is placed on a 1013. At this point in time, the patient does not appear to have an emergent medical condition that would preclude psychiatric admission, evaluation, consultation and placement. ED Medical Decision Making - Lab Data Result diagrams: 03/19/19 12:48 03/19/19 12:48 Critical care attestation.: If time is entered above; I have spent that time in minutes in the direct care of this critically ill patient, excluding procedure time. ED Disposition Clinical Impression: Suicidal thoughts, Paranoid schizophrenia Disposition: DC/TX-65 PSY HOSP/PSY UNIT Is pt being admited?: No Does the pt Need Aspirin: No Condition: Stable
[2019-03-19 18:03] LABS: Amphetamine Screen,Urine PRESUMPTIVE NEGATIVE; Benzodiazepines Screen,Urine PRESUMPTIVE NEGATIVE; Bilirubin,Urine NEG (Negative); Blood,Urine NEG (Negative); Color,Urine Amber (Yellow); Methadone Screen,Urine PRESUMPTIVE NEGATIVE; Mucus,Urine 2+ /HPF; Opiate Screen,Urine PRESUMPTIVE NEGATIVE; Protein,Urine <15 mg/dL mg/dL (Negative)
[2019-03-19 18:45] LABS: Cannabinoid Screen,Urine PRESUMPTIVE POSITIVE; Cocaine Screen,Urine PRESUMPTIVE POSITIVE
--- NOTE | 2019-03-20 15:59 | Consultation ---
History of Present Illness - Reason for Consult Consult date: 03/20/19 Reason for consult: Mental Health Evaluation Requesting physician: JEANETH CAIN - Chief Complaint Chief complaint: "I smoke crack, period" - History of Present Psychiatric Illness 53 y.o. AA male who presented to the ER for SI's with a plan to walk into traffic. Today the patient was belligerent during the assessment. I attempted to calm the patient down, but wasn't successful. I will attempt to assess the patient in 24 hours. Medications and Allergies Allergies Allergy/AdvReac Type Severity Reaction Status Date / Time No Known Allergies Allergy Verified 03/19/19 12:41 Home Medications Medication Instructions Recorded Confirmed Last Taken Type Ranitidine HCl [Zantac] 150 mg PO AC 05/02/16 03/19/19 Unknown History DULoxetine [Cymbalta] 90 mg PO DAILY #90 capsule 01/26/19 03/19/19 Unknown Rx QUEtiapine [SEROquel] 100 mg PO TID #90 tablet 01/26/19 03/19/19 1 Day Ago Rx ~03/18/19 buPROPion XL [Wellbutrin XL] 150 mg PO QDAY #30 tablet 01/26/19 03/19/19 Unknown Rx hydrOXYzine PAMOATE [Vistaril] 50 mg PO Q6H PRN #60 capsule 01/26/19 03/19/19 Unknown Rx traZODone [Desyrel] 50 mg PO QHS PRN #30 tablet 01/26/19 03/19/19 Unknown Rx FLUoxetine HCL [PROzac] 40 mg PO QDAY 03/19/19 03/19/19 1 Day Ago History ~03/18/19 Active Meds: Active Medications Haloperidol Lactate (Haldol) 5 mg IM Q6HR PRN PRN Reason: Agitation Lorazepam (Ativan) 2 mg IM Q4HR PRN PRN Reason: Agitation Past psychiatric history - Past Medical History Past Medical History: other (Unable to obtain ) Past Surgical History: Other (Unable to obtain ) - past Psychiatric treatment and history psychiatric treatment history: Hx of substance abuse. Unabel to obtain a fam psy hx. - Social History Social history: other (unable to obtain ) Mental Status Exam - Vital signs Last Vital Signs Temp 97.8 F 03/20/19 07:46 Pulse 82 03/20/19 07:46 Resp 20 03/20/19 07:46 BP 114/80 03/20/19 07:46 Pulse Ox 99 03/20/19 07:46 - Exam Narrative exam: Unable to complete the MSE because the patient refused to cooperate. Results Result Diagrams: 03/19/19 12:48 03/19/19 12:48 All other labs normal. Assessment and Plan Assessment and plan: Impression: Today the patient was belligerent so the psy assessment could not be completed. The patient is positive for cocaine and marijuana. Recommendation/Plan: Continue 1013 and attempt to reassess the patient in 24 hours. Dispo: The patient was referred to inpatient psy services. Will staff with Dr Margoth slaon.
[2019-03-20 17:02] VITALS: BP 140/94
== END 2019-03-20 18:41 ==
LOC: ED 12:21 → EEVIPCON 12:21 → ED 03-20 18:41
DX: F20.0 Paranoid schizophrenia (principal); F32.9 Major depressive disorder, single episode, unspecified; F17.200 Nicotine dependence, unspecified, uncomplicated; Z79.899 Other long term (current) drug therapy
CPT/HCPCS: 36415; 80048; 80307; 80320; 81001; 82550; 85025; G0480

== ENCOUNTER 2019-12-26 06:37 | Emergency (ER) | payer MEDICARE ==
--- NOTE | 2019-12-26 06:59 | Emergency Department Report ---
HPI - General Chief Complaint: Psych Time Seen by Provider: 12/26/19 06:56 - HPI HPI: [facility] The patient is a 54-year-old male present with a chief complaint of suicidal ideation and auditory hallucinations. The patient states he has felt suicidal for 1 day. Patient states he has had auditory hallucinations for 1 day telling him to kill himself. Patient states his plan was to jump off of a building. Patient states he has not made any attempts at harming himself yet. Patient states he has been off of his psychiatric medications for approximately 2 weeks. Patient admits to cocaine and methamphetamine use and states he last used 30 minutes ago. ED Past Medical Hx - Past Medical History Previous Medical History?: Yes Hx Psychiatric Treatment: Yes (schizophrenia and depression) Additional medical history: acid reflux - Surgical History Past Surgical History?: Yes Additional Surgical History: hernia - Family History Family history: no significant - Social History Smoking Status: Current Every Day Smoker (1 pack/day) Substance Use Type: Cocaine, Methamphetamines - Medications Home Medications: Home Medications Medication Instructions Recorded Confirmed Last Taken Type raNITIdine HCl [Zantac] 150 mg PO AC 05/02/16 03/19/19 Unknown History DULoxetine [Cymbalta] 90 mg PO DAILY #90 capsule 01/26/19 03/19/19 Unknown Rx QUEtiapine [SEROquel] 100 mg PO TID #90 tablet 01/26/19 03/19/19 1 Day Ago Rx ~03/18/19 buPROPion XL [Wellbutrin XL] 150 mg PO QDAY #30 tablet 01/26/19 03/19/19 Unknown Rx hydrOXYzine PAMOATE [Vistaril] 50 mg PO Q6H PRN #60 capsule 01/26/19 03/19/19 Unknown Rx traZODone [Desyrel] 50 mg PO QHS PRN #30 tablet 01/26/19 03/19/19 Unknown Rx FLUoxetine HCL [PROzac] 40 mg PO QDAY 03/19/19 03/19/19 1 Day Ago History ~03/18/19 ED Review of Systems ROS: Stated complaint: SUICIDAL THOUGHTS Other details as noted in HPI Constitutional: no symptoms reported Eyes: denies: eye pain ENT: denies: throat pain Respiratory: no symptoms reported Cardiovascular: denies: chest pain Endocrine: no symptoms reported Gastrointestinal: denies: abdominal pain Genitourinary: denies: dysuria Musculoskeletal: denies: back pain Neurological: denies: headache Psychiatric: auditory hallucinations, suicidal thoughts Physical Exam - Physical Exam Vital Signs: Vital Signs 12/26/19 06:40 Temperature 98.4 F Pulse Rate 86 Respiratory 16 Rate Blood Pressure 149/92 O2 Sat by Pulse 98 Oximetry Physical Exam: GENERAL: The patient is well-developed well-nourished male sitting in chair not appearing to be in acute distress HEENT: Normocephalic. Atraumatic. Extraocular motions are intact. Patient has moist mucous membranes. NECK: Supple. Trachea midline CHEST/LUNGS: Clear to auscultation. There is no respiratory distress noted. HEART/CARDIOVASCULAR: Regular. There is no tachycardia. There is no gallop rub or murmur. ABDOMEN: Abdomen is soft, nontender. Patient has normal bowel sounds. There is no abdominal distention. SKIN: There is no rash. There is no edema. There is no diaphoresis. NEURO: The patient is awake, alert, and oriented. The patient is cooperative. The patient has normal speech MUSCULOSKELETAL: There is no evidence of acute injury. ED Course Vital Signs 12/26/19 06:40 Temperature 98.4 F Pulse Rate 86 Respiratory 16 Rate Blood Pressure 149/92 O2 Sat by Pulse 98 Oximetry ED Medical Decision Making - Differential Diagnosis Suicidal ideation, auditory hallucinations, polysubstance abuse Critical care attestation.: If time is entered above; I have spent that time in minutes in the direct care of this critically ill patient, excluding procedure time. ED Disposition Clinical Impression: Suicidal thoughts, Auditory hallucination, Polysubstance abuse Disposition: DC/TX-65 PSY HOSP/PSY UNIT Is pt being admited?: No Does the pt Need Aspirin: No Condition: Stable
[2019-12-26 07:23] LABS: Basophils # (Auto) 0.1 K/mm3 (0.0-0.1); Basophils % (Auto) 0.6 % (0.0-1.8); Eosinophils # (Auto) 0.1 K/mm3 (0.0-0.4); Eosinophils % (Auto) 1.1 % (0.0-4.3); Hematocrit 43.7 % (35.5-45.6); Lymphocytes # (Auto) 1.6 K/mm3 (1.2-5.4); Mean Corpuscular HGB Conc 34 % (32-34); Mean Corpuscular Volume 86 fl (84-94); Monocytes % (Auto) 11.2 % (0.0-7.3); Platelet Count 154 K/mm3 (140-440); Red Blood Count 5.07 M/mm3 (3.65-5.03); Red Cell Distribution Width 13.8 % (13.2-15.2)
[2019-12-26 07:44] LABS: BUN/Creatinine Ratio 19; Blood Urea Nitrogen 17 mg/dL (9-20); Calcium 10.3 mg/dL (8.4-10.2); Hemolysis Index 7
[2019-12-26 15:36] LABS: Bilirubin,Urine NEG (Negative); Blood,Urine NEG (Negative); Color,Urine Yellow (Yellow); Mucus,Urine 1+ /HPF; Protein,Urine <15 mg/dL mg/dL (Negative)
[2019-12-26 15:43] LABS: Methadone Screen,Urine PRESUMPTIVE NEGATIVE; Opiate Screen,Urine PRESUMPTIVE NEGATIVE
[2019-12-26 16:17] LABS: Amphetamine Screen,Urine PRESUMPTIVE POSITIVE; Benzodiazepines Screen,Urine PRESUMPTIVE POSITIVE; Cannabinoid Screen,Urine PRESUMPTIVE POSITIVE; Cocaine Screen,Urine PRESUMPTIVE POSITIVE
[2019-12-26 20:31] VITALS: BP 131/81
== END 2019-12-26 21:27 ==
LOC: EEVIPCON 06:37 → ED 06:37
DX: R45.851 Suicidal ideations (principal); R44.0 Auditory hallucinations; F15.10 Other stimulant abuse, uncomplicated; F20.89 Other schizophrenia; F32.89 Other specified depressive episodes; F12.10 Cannabis abuse, uncomplicated; F17.210 Nicotine dependence, cigarettes, uncomplicated; Z98.890 Other specified postprocedural states; Z79.899 Other long term (current) drug therapy
CPT/HCPCS: 36415; 80048; 80307; 80320; 81001; 85025; G0480

== ENCOUNTER 2020-01-28 19:50 | Emergency (ER) | payer MEDICARE ==
[2020-01-28 20:46] LABS: Basophils % (Auto) 0.7 % (0.0-1.8); Eosinophils # (Auto) 0.1 K/mm3 (0.0-0.4); Eosinophils % (Auto) 1.9 % (0.0-4.3); Hematocrit 41.1 % (35.5-45.6); Hemoglobin 13.7 gm/dl (11.8-15.2); Lymphocytes # (Auto) 1.3 K/mm3 (1.2-5.4); Mean Corpuscular HGB Conc 33 % (32-34); Mean Corpuscular Volume 86 fl (84-94); Monocytes # (Auto) 0.9 K/mm3 (0.0-0.8); Monocytes % (Auto) 13.5 % (0.0-7.3); Platelet Count 186 K/mm3 (140-440); Red Blood Count 4.77 M/mm3 (3.65-5.03); Red Cell Distribution Width 13.9 % (13.2-15.2)
[2020-01-28 20:56] LABS: BUN/Creatinine Ratio 17; Blood Urea Nitrogen 15 mg/dL (9-20); Calcium 9.8 mg/dL (8.4-10.2); Hemolysis Index 5
[2020-01-28] MEDS ORDERED: POTASSIUM CHLORIDE ER 20 MEQ TAB PO ONE (21:08)
[2020-01-28 21:11] LABS: Bacteria,Urine 2+ /HPF (Negative); Bilirubin,Urine NEG (Negative); Blood,Urine NEG (Negative); Color,Urine Yellow (Yellow); Mucus,Urine 3+ /HPF; Protein,Urine <15 mg/dL mg/dL (Negative); Sperm,Urine FEW /HPF (NP)
--- NOTE | 2020-01-28 21:11 | Emergency Department Report ---
HPI - General Chief Complaint: Psych Time Seen by Provider: 01/28/20 20:35 - HPI HPI: 54-year-old male presents to the emergency department for a mental health evaluation secondary to suicidal ideations and hallucinations. Patient has a history of schizophrenia and admits to medication noncompliance over the past week. The patient is on Seroquel for his schizophrenia and says he also takes Prilosec for acid reflux. The patient says that he is hearing voices telling him to kill himself. He also says he has visual hallucinations in which "I see myself hanging." The patient repeatedly says "I hate myself" and when I asked him why the patient says "I do not stay in my house and I am out wandering the streets." I asked him why he will not stay in his house and he says "I just cannot help it." The patient is a tobacco smoker and also admits to taking some Percocet and smoking crack cocaine. ED Past Medical Hx - Past Medical History Previous Medical History?: Yes Hx Congestive Heart Failure: No Hx Diabetes: No Hx GERD: Yes Hx Renal Disease: No Hx Arthritis: No Hx Seizures: No Hx Psychiatric Treatment: Yes (schizophrenia and depression) Hx Asthma: No Hx COPD: No Hx Dementia: No Additional medical history: acid reflux - Surgical History Past Surgical History?: Yes Hx Cholecystectomy: No Hx Appendectomy: No Additional Surgical History: hernia - Social History Smoking Status: Current Every Day Smoker Substance Use Type: Cocaine, Prescribed - Medications Home Medications: Home Medications Medication Instructions Recorded Confirmed Last Taken Type raNITIdine HCl [Zantac] 150 mg PO AC 05/02/16 03/19/19 Unknown History DULoxetine [Cymbalta] 90 mg PO DAILY #90 capsule 01/26/19 03/19/19 Unknown Rx QUEtiapine [SEROquel] 100 mg PO TID #90 tablet 01/26/19 03/19/19 1 Day Ago Rx ~03/18/19 buPROPion XL [Wellbutrin XL] 150 mg PO QDAY #30 tablet 01/26/19 03/19/19 Unknown Rx hydrOXYzine PAMOATE [Vistaril] 50 mg PO Q6H PRN #60 capsule 01/26/19 03/19/19 Unknown Rx traZODone [Desyrel] 50 mg PO QHS PRN #30 tablet 01/26/19 03/19/19 Unknown Rx FLUoxetine HCL [PROzac] 40 mg PO QDAY 03/19/19 03/19/19 1 Day Ago History ~03/18/19 ED Review of Systems ROS: Stated complaint: HEARING VOICES, SUICIDAL Other details as noted in HPI Comment: All other systems reviewed and negative Constitutional: denies: chills, fever Eyes: denies: eye pain, vision change ENT: denies: ear pain, throat pain Respiratory: denies: cough, shortness of breath Cardiovascular: denies: chest pain, palpitations Gastrointestinal: denies: abdominal pain, vomiting Musculoskeletal: denies: back pain, joint swelling Neurological: denies: headache, weakness Psychiatric: auditory hallucinations, visual hallucinations, suicidal thoughts. denies: homicidal thoughts Physical Exam - Physical Exam Vital Signs: Vital Signs 01/28/20 20:36 Respiratory 18 Rate O2 Sat by Pulse 98 Oximetry Physical Exam: GENERAL: The patient is well-developed well-nourished. HENT: Normocephalic. Atraumatic. Patient has moist mucous membranes. EYES: Extraocular motions are intact. NECK: Supple. Trachea is midline. CHEST/LUNGS: Clear to auscultation. There is no respiratory distress noted. HEART/CARDIOVASCULAR: Regular. There is no tachycardia. ABDOMEN: Abdomen is soft, nontender. Patient has normal bowel sounds. SKIN: Skin is warm and dry. NEURO: The patient is awake, alert, and oriented. The patient is cooperative. Normal speech. MUSCULOSKELETAL: There is no tenderness or deformity. There is no evidence of acute injury. PSYCH: Patient has a flat affect. ED Course Vital Signs 01/28/20 20:36 Respiratory 18 Rate O2 Sat by Pulse 98 Oximetry ED Medical Decision Making - Lab Data Result diagrams: 01/28/20 20:05 01/28/20 20:05 - Medical Decision Making This patient, with a history of schizophrenia, presents with complaint of suicidal ideations. He has visual hallucinations in which he sees himself hanging. For this reason the patient has been made a 1013. His labs are mostly unremarkable except for some mild hypokalemia that was replaced with potassium chloride and a urine drug screen positive for cocaine and marijuana. Vital signs been stable throughout his ED course. The patient is medically cleared fo r psychiatric placement. Critical Care Time: No Critical care attestation.: If time is entered above; I have spent that time in minutes in the direct care of this critically ill patient, excluding procedure time. ED Disposition Clinical Impression: Suicidal thoughts, Cocaine use disorder, Paranoid schizophrenia Disposition: DC/TX-65 PSY HOSP/PSY UNIT Is pt being admited?: No Condition: Stable Time of Disposition: 01:58
[2020-01-28 21:39] LABS: Amphetamine Screen,Urine PRESUMPTIVE NEGATIVE; Benzodiazepines Screen,Urine PRESUMPTIVE NEGATIVE; Methadone Screen,Urine PRESUMPTIVE NEGATIVE; Opiate Screen,Urine PRESUMPTIVE NEGATIVE
[2020-01-28 21:52] LABS: Cannabinoid Screen,Urine PRESUMPTIVE POSITIVE; Cocaine Screen,Urine PRESUMPTIVE POSITIVE
[2020-01-29 12:39] VITALS: BP 154/98
[2020-01-29] MEDS ORDERED: amLODIPine 5 MG TAB PO SCH (13:00)
== END 2020-01-29 15:55 ==
LOC: ED 19:50
DX: R45.851 Suicidal ideations (principal); F20.0 Paranoid schizophrenia; F14.10 Cocaine abuse, uncomplicated; K21.9 Gastro-esophageal reflux disease without esophagitis; F17.200 Nicotine dependence, unspecified, uncomplicated; Z98.890 Other specified postprocedural states; Z79.899 Other long term (current) drug therapy
CPT/HCPCS: 36415; 80048; 80307; 80320; 81001; 85025; G0480

== ENCOUNTER 2020-01-29 13:50 | Inpatient (IN) | payer MEDICARE ==
[2020-01-29] MEDS ORDERED: HALOPERIDOL LACTATE 5 MG/1 ML INJ IM PRN (14:36)
[2020-01-29] MEDS ORDERED: LORazepam 2 MG/ML VIAL IM PRN (14:36)
[2020-01-29] MEDS ORDERED: QUEtiapine 25 MG TAB PO SCH (15:00)
[2020-01-29] MEDS: QUEtiapine 100 MG TAB PO SCH ×2 (18:48→22:19)
[2020-01-29] MEDS: clonazePAM 0.5 MG TAB PO SCH ×2 (20:06→22:19)
[2020-01-29] MEDS: DULoxetine 20 MG CAP PO SCH (20:06)
[2020-01-29 20:35] LABS: Hepatitis B Surface Antigen Non-Reactive (Negative); Hepatitis C Virus Antibody Non-Reactive (NonReactive)
[2020-01-29] MEDS: traZODone 50 MG TAB PO SCH (22:19)
[2020-01-29] MEDS: OMEGA-3 FATTY ACIDS/FISH OIL 1 GRAM CAP PO SCH (22:19)
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
[2020-01-30] MEDS ORDERED: LOPERAMIDE 2 MG CAP PO PRN (09:34)
[2020-01-30] MEDS: clonazePAM 0.5 MG TAB PO SCH ×2 (09:41→21:41)
[2020-01-30] MEDS: OMEGA-3 FATTY ACIDS/FISH OIL 1 GRAM CAP PO SCH ×2 (09:41→21:40)
[2020-01-30] MEDS: DULoxetine 20 MG CAP PO SCH (09:41)
[2020-01-30] MEDS: QUEtiapine 100 MG TAB PO SCH ×2 (09:41→21:41)
[2020-01-30] MEDS: NICOTINE 7 MG/24 HR PATCH TD SCH (09:46)
[2020-01-30] MEDS: VALPROIC ACID 250 MG CAP PO SCH ×2 (15:03→21:39)
[2020-01-30] MEDS ORDERED: MELATONIN 5 MG TAB PO SCH (21:00)
[2020-01-30] MEDS: traZODone 50 MG TAB PO SCH (21:39)
--- NOTE | 2020-01-31 07:08 | Progress Note ---
Subjective Date of service: 01/31/20 Principal diagnosis: MDD (major depressive disorder) Current Visit: Subjective Comment: Psych Nurse: Patient was irritable throughout the shift. He wanted to stay in bed and sleep. Patient used the phone multiple times. He wants to keep it with him even in his room. Will continue to monitor patient's behavior and his safety. Psych Progress: Patient seen up and awake in breakfast room, could be heard asking the nurse for suboxone medication. Pt interviewed druing this encourter, reports not feeling so good, says his sleep was disturbed, felt on and off, describes current mood as feeling a little bit sad, persistent SI, denies HI but endorses auditory hallucinating telling him to kill himself. Informed patient medication seeking behavior not tolerated and cant be used as a bargain for SI, and if he his on suboxone therapy and has rx, we will honor it but he said no he is not on any. Reason for continuing inpatient hospitalization: Persistent Depression associated with SI and AH. MENTAL STATUS EXAMINATION General Appearance and Behavior: Age appropriate, fair good hygiene, wearing appropriate clothes, good eye contact, cooperative but non polite Cooperation: Participating/engaged, Withdrawn and threatening Psychomotor Behavior: unremarkable and within normal limits Mood: Irritated, sad Affect and affective range: incongruent with mood, constricted, decreased range. Thought Process: Fluent/Logical Thought Content: Auditory Hallucination, hopelessness Speech: Normal volume, Regular rate and rhythm. Intellectual Functioning: Average Suicidal Ideation: Endorses Homicidal Ideation: Denies HI Impulse Control: Unimpaired Insight and Judgment: Normal insight and judgment Memory: Normal, Short term memory intact Attention: Normal Orientation: Alert, oriented Assessment and Plan - Psychiatric problem (1) Psychoactive substance-induced mood disorder Current Visit: Yes Status: Acute (2) MDD (major depressive disorder) Current Visit: Yes Status: Acute (3) Cocaine use disorder, severe, dependence Current Visit: Yes Status: Acute (4) Opioid use disorder, severe, dependence Current Visit: Yes Status: Acute (5) Paranoid schizophrenia Current Visit: No Status: Acute Treatment Plan Patient is pain meds seeking Started Klonopin .5mg BID due to cocaine withdrawal and use. Will wean off. Seroquel 100mg BID started. Duloxetine 20 mg Patient will be admitted for inpatient psychiatric evaluation, medication adjustment and close monitoring The patient's behavior, mood, sleep and appetite will be closely monitored. Patient will be enrolled in individual and group therapeutic sessions and encouraged to attend. Patient will be provided with a safe and structured environment. Patient's physical health needs will be addressed by the Hospitalist. Hospitalist Consulted Labs including CBC, CMP, Lipid profile and Hemoglobin A1C ordered Social Assessment will be completed and the Velvet Cutter will work with patient and family to ensure a suitable and safe disposition Medication adjustment will be made as clinically indicated Usual Wellness Buddhism/Preservation: - Start Trazodone 50 mg po QHS & 50 mg po QHS PRN between 10 PM & 2 AM for insomnia - Start Melatonin 5 mg po QHS to promote circadian rhythm - Start [place]-3 for brain health, reduce impulsivity, and as adjunctive treatment for mood disorder, continue upon discharge given overall benefits. - Start B1 prophylaxis with 200 mg po for 5 days The patient agreed on the treatment plan, understood the risk, benefit, alternative treatment, potential consequence of no treatment, and gave informed consent. Initial Certification This is an acknowledgement statement that JER MELGAR is a 54 year old M who requires inpatient psychiatric admission for treatment which could reasonably be expected to improve the patient's condition for Estimated period of time patient will need to remain in the hospital: [6] Plan for post-hospital care: [outpatient ] Assessment and Plan - Patient Problems (1) Psychoactive substance-induced mood disorder Current Visit: Yes Status: Acute (2) MDD (major depressive disorder) Current Visit: Yes Status: Acute (3) Cocaine use disorder, severe, dependence Current Visit: Yes Status: Acute (4) Opioid use disorder, severe, dependence Current Visit: Yes Status: Acute (5) Paranoid schizophrenia Current Visit: No Status: Acute Medications and Allergies Allergies Allergy/AdvReac Type Severity Reaction Status Date / Time No Known Allergies Allergy Verified 03/19/19 12:41 Home Medications Medication Instructions Recorded Confirmed Last Taken Type raNITIdine HCl [Zantac] 150 mg PO AC 05/02/16 01/29/20 Unknown History DULoxetine [Cymbalta] 90 mg PO DAILY #90 capsule 01/26/19 01/29/20 Unknown Rx QUEtiapine [SEROquel] 100 mg PO TID #90 tablet 01/26/19 01/29/20 1 Day Ago Rx ~03/18/19 buPROPion XL [Wellbutrin XL] 150 mg PO QDAY #30 tablet 01/26/19 01/29/20 Unknown Rx hydrOXYzine PAMOATE [Vistaril] 50 mg PO Q6H PRN #60 capsule 01/26/19 01/29/20 Unknown Rx traZODone [Desyrel] 50 mg PO QHS PRN #30 tablet 01/26/19 01/29/20 Unknown Rx FLUoxetine HCL [PROzac] 40 mg PO QDAY 03/19/19 01/29/20 1 Day Ago History ~03/18/19 Active Meds: Active Medications Clonazepam (Klonopin) 0.5 mg PO BID [facility] Last Admin: 01/30/20 21:41 Dose: 0.5 mg Documented by: Duloxetine HCl (Cymbalta) 20 mg PO QDAY [facility] Last Admin: 01/30/20 09:41 Dose: 20 mg Documented by: Fish Oil (Fish Oil) 2,000 mg PO BID [facility] Last Admin: 01/30/20 21:40 Dose: 2,000 mg Documented by: Haloperidol Lactate (Haldol) 5 mg IM ONCE PRN PRN Reason: Agitation Loperamide HCl (Imodium) 2 mg PO Q2H PRN PRN Reason: Diarrhea Lorazepam (Ativan) 2 mg IM Q4HR PRN PRN Reason: Agitation Last Admin: 01/29/20 18:48 Dose: 2 mg Documented by: Melatonin (Melatonin) 10 mg PO QHS@2100 [facility] Last Admin: 01/30/20 21:39 Dose: 10 mg Documented by: Nicotine (Habitrol) 7 mg TD QDAY [facility] Last Admin: 01/30/20 09:46 Dose: Not Given Documented by: Quetiapine Fumarate (Seroquel) 100 mg PO BID [facility] Last Admin: 01/30/20 21:41 Dose: 100 mg Documented by: Trazodone HCl (Desyrel) 50 mg PO QHS [facility] Last Admin: 01/30/20 21:39 Dose: 50 mg Documented by: Valproic Acid (Depakene) 500 mg PO BID [facility] Last Admin: 01/30/20 21:39 Dose: 500 mg Documented by: Results - Results Labs/Vitals: Laboratory Last Values POC Glucose 98 (70-105) 01/29/20 19:59 Hemoglobin A1c 5.0 % (4-6) 01/29/20 19:53 Triglycerides 60 mg/dL (2-149) 01/29/20 19:53 Cholesterol 204 mg/dL (50-199) H 01/29/20 19:53 LDL Cholesterol Direct 144 mg/dL (50-130) H 01/29/20 19:53 HDL Cholesterol 51 mg/dL (40-59) 01/29/20 19:53 Cholesterol/HDL Ratio 4.00 % 01/29/20 19:53 TSH 0.741 mlU/mL (0.270-4.200) 01/29/20 19:53 Hepatitis A IgM Ab Non-reactive (NonReactive) 01/29/20 19:53 Hep Bs Antigen Non-reactive (Negative) 01/29/20 19:53 Hep B Core IgM Ab Non-reactive (NonReactive) 01/29/20 19:53 Hepatitis C Antibody Non-reactive (NonReactive) 01/29/20 19:53 Last Vital Signs Temp 97.9 F 01/30/20 09:40 Pulse 92 H 01/29/20 22:00 Resp 18 01/30/20 09:40 BP 134/91 01/30/20 09:40 Pulse Ox 98 01/29/20 22:00
[2020-01-31 08:41] VITALS: BP 125/69
[2020-01-31] MEDS: QUEtiapine 100 MG TAB PO SCH (11:10)
[2020-01-31] MEDS: OMEGA-3 FATTY ACIDS/FISH OIL 1 GRAM CAP PO SCH (11:11)
[2020-01-31] MEDS: VALPROIC ACID 250 MG CAP PO SCH (11:11)
[2020-01-31] MEDS: clonazePAM 0.5 MG TAB PO SCH (11:11)
[2020-01-31] MEDS: NICOTINE 7 MG/24 HR PATCH TD SCH (11:12)
[2020-01-31] MEDS: DULoxetine 20 MG CAP PO SCH (11:12)
--- NOTE | 2020-01-31 12:34 | Consultation ---
History of Present Illness - Reason for Consult Consult date: 01/31/20 Hypertension Requesting physician: KENN CONTRERAS - History of Present Illness Patient is a 54 year old with history of hypertension, schizophrenia . He has been admitted to [facility] for suicidal ideation and hallucination. Patient reported was hearing voices telling him to kill himself and was seen visions of himself being hanged prompting him to approach his friend Jose who then brought the patient to the ER for evaluation. Patient believes most of his psychiatric problems and symptoms are mostly induced by the illicit street drugs that he uses. He reports using crack cocaine and 4 pills of Percocet 2 days prior and has been using painkillers since age 18 and crack cocaine since age 22. The hospitalist consulted for management of hypertension. Currently no chest pain, mild diarrhea. Past History Past Medical History: hypertension, other (substance abuse Percocet from streets) Past Surgical History: hernia repair Social history: smoking, full code. denies: alcohol abuse Medications and Allergies Allergies Allergy/AdvReac Type Severity Reaction Status Date / Time No Known Allergies Allergy Verified 03/19/19 12:41 Home Medications Medication Instructions Recorded Confirmed Last Taken Type raNITIdine HCl [Zantac] 150 mg PO AC 05/02/16 01/29/20 Unknown History DULoxetine [Cymbalta] 90 mg PO DAILY #90 capsule 01/26/19 01/29/20 Unknown Rx QUEtiapine [SEROquel] 100 mg PO TID #90 tablet 01/26/19 01/29/20 1 Day Ago Rx ~03/18/19 buPROPion XL [Wellbutrin XL] 150 mg PO QDAY #30 tablet 01/26/19 01/29/20 Unknown Rx hydrOXYzine PAMOATE [Vistaril] 50 mg PO Q6H PRN #60 capsule 01/26/19 01/29/20 Unknown Rx traZODone [Desyrel] 50 mg PO QHS PRN #30 tablet 01/26/19 01/29/20 Unknown Rx FLUoxetine HCL [PROzac] 40 mg PO QDAY 03/19/19 01/29/20 1 Day Ago History ~03/18/19 Active Meds: Active Medications Clonazepam (Klonopin) 0.5 mg PO BID [facility] Last Admin: 01/31/20 11:11 Dose: 0.5 mg Documented by: Duloxetine HCl (Cymbalta) 20 mg PO QDAY [facility] Last Admin: 01/31/20 11:12 Dose: 20 mg Documented by: Fish Oil (Fish Oil) 2,000 mg PO BID [facility] Last Admin: 01/31/20 11:11 Dose: 2,000 mg Documented by: Haloperidol Lactate (Haldol) 5 mg IM ONCE PRN PRN Reason: Agitation Loperamide HCl (Imodium) 2 mg PO Q2H PRN PRN Reason: Diarrhea Last Admin: 01/31/20 11:10 Dose: 2 mg Documented by: Lorazepam (Ativan) 2 mg IM Q4HR PRN PRN Reason: Agitation Last Admin: 01/29/20 18:48 Dose: 2 mg Documented by: Melatonin (Melatonin) 10 mg PO QHS@2100 [facility] Last Admin: 01/30/20 21:39 Dose: 10 mg Documented by: Nicotine (Habitrol) 7 mg TD QDAY [facility] Last Admin: 01/31/20 11:12 Dose: Not Given Documented by: Quetiapine Fumarate (Seroquel) 100 mg PO BID [facility] Last Admin: 01/31/20 11:10 Dose: 100 mg Documented by: Trazodone HCl (Desyrel) 50 mg PO QHS [facility] Last Admin: 01/30/20 21:39 Dose: 50 mg Documented by: Valproic Acid (Depakene) 500 mg PO BID [facility] Last Admin: 01/31/20 11:11 Dose: 500 mg Documented by: Review of Systems All systems: negative (No fever, no cough, no chest pain. patient complains of diarrhea. All other systems reviewed and are negative.) Exam - Physical Exam Narrative exam: GEN: Not in acute distress, lying in bed HEENT: Normocephalic, atraumatic, Neck: supple, No JVD Lungs: Clear to auscultation bilaterally, heart;S1 and S2 reg, no murmurs, rubs or gallop Abd:soft, non tender, non distended, normal bowel sounds, Ext: No edema, no clubbing, no cyanosis, Neuro: Awake,alert,oriented X3 , no focal neurological signs, - Constitutional Vitals: Temp Pulse Resp BP Pulse Ox 97.3 F L 70 20 125/69 100 01/31/20 08:42 01/31/20 08:42 01/31/20 08:42 01/31/20 08:42 01/31/20 08:42 Assessment and Plan Suicidal ideation Admitted to [facility] Psychiatry Attending Hypertension Monitor BP currently stable Polysubstance abuse with cocaine,Percocet from streets Thanks for the consult, Dr. Contreras. Will follow
--- NOTE | 2020-01-31 13:56 | Discharge Summary ---
Providers - Providers Date of Admission: 01/29/20 16:34 Date of discharge: 01/31/20 Attending physician: KENN CONTRERAS MD 01/29/20 14:34 Consult to Physician [CONS] Routine Comment: Consulting Provider: LISSETH JACOBSON Physician Instructions: Reason For Exam: Medical Management Primary care physician: [employer] TECHNOLOGIST Hospitalization Reason for admission: SI Condition: Good Hospital course: Patient was admitted for MDD with SI, has history of percocet abuse, on admission inpatient he is requesting pain meds or suboxone, pt informed this is not a detox or substance abuse program, pt say but its a hospital and you guys have it. Pt requesting to be discharged due to not being able to get pain meds and hence discharged. Disposition: DC-30 STILL A PATIENT Allergies/Adverse Reactions: Allergies No Known Allergies Allergy (Verified 03/19/19 12:41) Vital Signs: Last Vital Signs Temp 97.3 F L 01/31/20 08:42 Pulse 70 01/31/20 08:42 Resp 20 01/31/20 08:42 BP 125/69 01/31/20 08:42 Pulse Ox 100 01/31/20 08:42 Last Lab: Laboratory Last Values POC Glucose 98 (70-105) 01/29/20 19:59 Hemoglobin A1c 5.0 % (4-6) 01/29/20 19:53 Triglycerides 60 mg/dL (2-149) 01/29/20 19:53 Cholesterol 204 mg/dL (50-199) H 01/29/20 19:53 LDL Cholesterol Direct 144 mg/dL (50-130) H 01/29/20 19:53 HDL Cholesterol 51 mg/dL (40-59) 01/29/20 19:53 Cholesterol/HDL Ratio 4.00 % 01/29/20 19:53 TSH 0.741 mlU/mL (0.270-4.200) 01/29/20 19:53 Hepatitis A IgM Ab Non-reactive (NonReactive) 01/29/20 19:53 Hep Bs Antigen Non-reactive (Negative) 01/29/20 19:53 Hep B Core IgM Ab Non-reactive (NonReactive) 01/29/20 19:53 Hepatitis C Antibody Non-reactive (NonReactive) 01/29/20 19:53 - Discharge Diagnoses (1) Psychoactive substance-induced mood disorder Status: Acute (2) MDD (major depressive disorder) Status: Acute (3) Cocaine use disorder, severe, dependence Status: Acute (4) Opioid use disorder, severe, dependence Status: Acute (5) Paranoid schizophrenia Status: Acute Core Measure Documentation - Palliative Care Palliative Care/ Comfort Measures: Not Applicable - Core Measures Any of the following diagnoses?: none Exam - Constitutional Vitals: Temp Pulse Resp BP Pulse Ox 97.3 F L 70 20 125/69 100 01/31/20 08:42 01/31/20 08:42 01/31/20 08:42 01/31/20 08:42 01/31/20 08:42 - EENT Eyes: Present: PERRL, EOM intact ENT: hearing intact, clear oral mucosa - Neck Neck: Present: supple, normal ROM - Respiratory Respiratory effort: normal - Integumentary Integumentary: Present: clear, warm, dry Plan Follow up with: PRIMARY CARE, [Primary Care Provider] - 7 Days
== END 2020-01-31 15:00 | disposition home or self-care (01) | DRG 897 ==
LOC: UNDOADMIN 13:50 → 3A 13:50 → 5A 16:34
PROVIDERS: ADMIT Psychiatry & Neurology Psychiatry; ATTEND Psychiatry & Neurology Psychiatry
DX: F19.24 Other psychoactive substance dependence with psychoactive substance-induced mood disorder (principal); F11.20 Opioid dependence, uncomplicated; F20.0 Paranoid schizophrenia; F14.20 Cocaine dependence, uncomplicated; R45.851 Suicidal ideations; F32.9 Major depressive disorder, single episode, unspecified; Z59.0 Homelessness; I10 Essential (primary) hypertension; K21.9 Gastro-esophageal reflux disease without esophagitis
CPT/HCPCS: 36415; 80048; 80061; 80074; 80307; 80320; 81001; 82962; 83036; 84443; 85025; G0378; G0480; J2060

== ENCOUNTER 2020-09-18 12:36 | Emergency (ER) | payer MEDICARE ==
--- NOTE | 2020-09-18 12:43 | Emergency Department Report ---
Blank Doc - Documentation Documentation: This is a 54-year-old male that presents with SI and hearing voices. This initial assessment/diagnostic orders/clinical plan/treatment(s) is/are subject to change based on patient's health status, clinical progression and re- assessment by fellow clinical providers in the ED. Further treatment and workup at subsequent clinical providers discretion. Patient/guardians urged not to elope from the ED as their condition may be serious if not clinically assessed and managed. Initial orders include: 1- Patient sent to MAIN ED for further evaluation and treatment 2- gravity prospecting observer was notified to have patient be brought back [facility]. 3- RN was notified to keep patient as close range and observation until room available 4- Patient presents with substantial risk of imminent harm to self, appears to be so unable to care for his/her own physical health and safety as to create an imminently life-endangering crisis, and has committed/expressed life endangering crisis to self. Due to this and other complaints, patient is put on psych hold.
[2020-09-18 13:47] LABS: Basophils # (Auto) 0.1 K/mm3 (0.0-0.1); Basophils % (Auto) 0.6 % (0.0-1.8); Eosinophils # (Auto) 0.1 K/mm3 (0.0-0.4); Eosinophils % (Auto) 0.7 % (0.0-4.3); Hematocrit 47.9 % (35.5-45.6); Hemoglobin 16.3 gm/dl (11.8-15.2); Lymphocytes # (Auto) 1.3 K/mm3 (1.2-5.4); Lymphocytes % (Auto) 14.4 % (13.4-35.0); Mean Corpuscular HGB Conc 34 % (32-34); Mean Corpuscular Volume 86 fl (84-94); Monocytes % (Auto) 11.3 % (0.0-7.3); Platelet Count 176 K/mm3 (140-440); Red Blood Count 5.55 M/mm3 (3.65-5.03); Red Cell Distribution Width 13.7 % (13.2-15.2)
[2020-09-18 14:07] LABS: BUN/Creatinine Ratio 16; Blood Urea Nitrogen 14 mg/dL (9-20); Calcium 9.8 mg/dL (8.4-10.2); Hemolysis Index 6
--- NOTE | 2020-09-18 15:59 | Emergency Department Report ---
ED General Adult HPI - General Chief complaint: Psych Stated complaint: SUICIDAL;HEARING VOICES PUI?: No Time Seen by Provider: 09/18/20 12:40 Source: patient Mode of arrival: Ambulatory Limitations: No Limitations - History of Present Illness Initial comments: The patient was evaluated in the emergency department for symptoms described in the history of present illness. He/she was evaluated in the context of the global COVID-19 pandemic, which necessitated consideration that the patient might be at risk for infection with the virus that causes COVID-19. Institutional protocols and algorithms that pertain to the evaluation of patients at risk for COVID-19 are in a state of rapid change based on information released by regulatory bodies including the CDC and federal and state organizations. These policies and algorithms were followed during the patient's care in the emergency department. Please note that these policies, procedures and recommendations changed on a rapid basis. Patient is a 54-year-old gentleman. He presents to the ER today with complaint of pain with suicidality. He states he might overdose on recreational street drugs, or drive his car into traffic. He denies intentional overdose on pres cription medications. He denies physical pain. He denies cough, fever, loss of taste, loss of smell and urinary symptoms. He denies physical pain at this time. He states his sensation of suicidality is constant, painless, does not radiate anywhere, and he does not endorse exacerbating relieving factors. -: Gradual Consistency: constant Improves with: none Worsens with: none Associated Symptoms: denies other symptoms - Related Data Home Medications Medication Instructions Recorded Confirmed Last Taken raNITIdine HCl [Zantac] 150 mg PO AC 05/02/16 01/29/20 Unknown FLUoxetine HCL [PROzac] 40 mg PO QDAY 03/19/19 01/29/20 1 Day Ago ~03/18/19 Previous Rx's Medication Instructions Recorded Last Taken Type DULoxetine [Cymbalta] 90 mg PO DAILY #90 capsule 01/26/19 Unknown Rx QUEtiapine [SEROquel] 100 mg PO TID #90 tablet 01/26/19 1 Day Ago Rx ~03/18/19 buPROPion XL [Wellbutrin XL] 150 mg PO QDAY #30 tablet 01/26/19 Unknown Rx hydrOXYzine PAMOATE [Vistaril] 50 mg PO Q6H PRN #60 capsule 01/26/19 Unknown Rx traZODone [Desyrel] 50 mg PO QHS PRN #30 tablet 01/26/19 Unknown Rx Allergies Allergy/AdvReac Type Severity Reaction Status Date / Time No Known Allergies Allergy Verified 09/18/20 12:40 ED Review of Systems ROS: Stated complaint: SUICIDAL;HEARING VOICES Other details as noted in HPI Comment: All other systems reviewed and negative Psychiatric: suicidal thoughts ED Past Medical Hx - Past Medical History Hx Congestive Heart Failure: No Hx Diabetes: No Hx GERD: Yes Hx Renal Disease: No Hx Arthritis: No Hx Seizures: No Hx Psychiatric Treatment: Yes (schizophrenia and depression) Hx Asthma: No Hx COPD: No Hx Dementia: No Additional medical history: acid reflux - Surgical History Hx Cholecystectomy: No Hx Appendectomy: No Additional Surgical History: hernia - Social History Smoking Status: Never Smoker Substance Use Type: Cocaine, Marijuana, Other - Medications Home Medications: Home Medications Medication Instructions Recorded Confirmed Last Taken Type raNITIdine HCl [Zantac] 150 mg PO AC 05/02/16 01/29/20 Unknown History DULoxetine [Cymbalta] 90 mg PO DAILY #90 capsule 01/26/19 01/29/20 Unknown Rx QUEtiapine [SEROquel] 100 mg PO TID #90 tablet 01/26/19 01/29/20 1 Day Ago Rx ~03/18/19 buPROPion XL [Wellbutrin XL] 150 mg PO QDAY #30 tablet 01/26/19 01/29/20 Unknown Rx hydrOXYzine PAMOATE [Vistaril] 50 mg PO Q6H PRN #60 capsule 01/26/19 01/29/20 Unknown Rx traZODone [Desyrel] 50 mg PO QHS PRN #30 tablet 01/26/19 01/29/20 Unknown Rx FLUoxetine HCL [PROzac] 40 mg PO QDAY 03/19/19 01/29/20 1 Day Ago History ~03/18/19 ED Physical Exam - General Limitations: No Limitations General appearance: alert, anxious - Head Head exam: Present: atraumatic, normocephalic - Eye Eye exam: Present: normal appearance, EOMI. Absent: nystagmus - ENT ENT exam: Present: normal exam, normal orophraynx, mucous membranes moist, normal external ear exam - Neck Neck exam: Present: normal inspection, full ROM. Absent: tenderness, meningismus - Respiratory Respiratory exam: Present: normal lung sounds bilaterally. Absent: respiratory distress, wheezes, rales, rhonchi, stridor, decreased breath sounds - Cardiovascular Cardiovascular Exam: Present: regular rate, normal rhythm, normal heart sounds. Absent: bradycardia, tachycardia, irregular rhythm, systolic murmur, diastolic murmur, rubs, gallop - GI/Abdominal GI/Abdominal exam: Present: soft. Absent: distended, tenderness, guarding, rebound, rigid, pulsatile mass - Rectal Rectal exam: Present: deferred - Extremities Exam Extremities exam: Present: normal inspection, full ROM, other (2+ pulses noted in the bilateral upper and lower extremities. There is no palpable cord. negative Homans sign. Muscular compartments are soft. The pelvis is stable.). Absent: pedal edema, calf tenderness - Back Exam Back exam: Present: normal inspection, full ROM. Absent: tenderness, CVA tenderness (R), CVA tenderness (L), paraspinal tenderness, vertebral tenderness - Neurological Exam Neurological exam: Present: alert, oriented X3, normal gait, other (No facial droop. Tongue midline. Extraocular movements intact bilaterally. Facial sensation intact to light touch in V1, V2, V3 distribution bilaterally. 5 and a 5 strength in 4 extremities. Sensation intact to light touch in 4 extremities.). Absent: motor sensory deficit - Psychiatric Psychiatric exam: Present: anxious, suicidal ideation. Absent: homicidal ideation - Skin Skin exam: Present: warm, dry, intact, normal color. Absent: rash ED Course Vital Signs 09/18/20 12:42 Temperature 97.4 F L Pulse Rate 96 H Respiratory 18 Rate Blood Pressure 176/101 O2 Sat by Pulse 96 Oximetry ED Medical Decision Making - Lab Data Result diagrams: 09/18/20 13:25 09/18/20 13:25 Vital Signs 09/18/20 12:42 Temperature 97.4 F L Pulse Rate 96 H Respiratory 18 Rate Blood Pressure 176/101 O2 Sat by Pulse 96 Oximetry Lab Results 09/18/20 09/18/20 09/18/20 Range/Units 13:25 13:25 13:25 WBC 8.9 (4.5-11.0) K/mm3 RBC 5.55 H (3.65-5.03) M/mm3 Hgb 16.3 H (11.8-15.2) gm/dl Hct 47.9 H (35.5-45.6) % MCV 86 (84-94) fl MCH 29 (28-32) pg MCHC 34 (32-34) % RDW 13.7 (13.2-15.2) % Plt Count 176 (140-440) K/mm3 Lymph % (Auto) 14.4 (13.4-35.0) % [place] % (Auto) 11.3 H (0.0-7.3) % Eos % (Auto) 0.7 (0.0-4.3) % Baso % (Auto) 0.6 (0.0-1.8) % Lymph # (Auto) 1.3 (1.2-5.4) K/mm3 [place] # (Auto) 1.0 H (0.0-0.8) K/mm3 Eos # (Auto) 0.1 (0.0-0.4) K/mm3 Baso # (Auto) 0.1 (0.0-0.1) K/mm3 Seg Neutrophils % 73.0 H (40.0-70.0) % Seg Neutrophils # 6.5 (1.8-7.7) K/mm3 Sodium 141 (137-145) mmol/L Potassium 3.8 (3.6-5.0) mmol/L Chloride 103.0 (98-107) mmol/L Carbon Dioxide 24 (22-30) mmol/L Anion Gap 18 mmol/L BUN 14 (9-20) mg/dL Creatinine 0.9 (0.8-1.3) mg/dL Estimated GFR > 60 ml/min BUN/Creatinine Ratio 16 % Glucose 101 H (75-100) mg/dL Calcium 9.8 (8.4-10.2) mg/dL Salicylates < 0.3 L (2.8-20.0) mg/dL Acetaminophen (10.0-30.0) ug/mL Plasma/Serum Alcohol (0-0.07) % 09/18/20 09/18/20 Range/Units 13:25 13:25 WBC (4.5-11.0) K/mm3 RBC (3.65-5.03) M/mm3 Hgb (11.8-15.2) gm/dl Hct (35.5-45.6) % MCV (84-94) fl MCH (28-32) pg MCHC (32-34) % RDW (13.2-15.2) % Plt Count (140-440) K/mm3 Lymph % (Auto) (13.4-35.0) % [place] % (Auto) (0.0-7.3) % Eos % (Auto) (0.0-4.3) % Baso % (Auto) (0.0-1.8) % Lymph # (Auto) (1.2-5.4) K/mm3 [place] # (Auto) (0.0-0.8) K/mm3 Eos # (Auto) (0.0-0.4) K/mm3 Baso # (Auto) (0.0-0.1) K/mm3 Seg Neutrophils % (40.0-70.0) % Seg Neutrophils # (1.8-7.7) K/mm3 Sodium (137-145) mmol/L Potassium (3.6-5.0) mmol/L Chloride (98-107) mmol/L Carbon Dioxide (22-30) mmol/L Anion Gap mmol/L BUN (9-20) mg/dL Creatinine (0.8-1.3) mg/dL Estimated GFR ml/min BUN/Creatinine Ratio % Glucose (75-100) mg/dL Calcium (8.4-10.2) mg/dL Salicylates (2.8-20.0) mg/dL Acetaminophen 5.0 L (10.0-30.0) ug/mL Plasma/Serum Alcohol < 0.01 (0-0.07) % - Medical Decision Making Differential diagnosis, including but not limited to: Psychosis, medical clearance for psychiatric placement Assessment and plan: 54-year-old gentleman, who is afebrile, with reassuring vital signs, with a primary complaint of suicidality which is painless. His physical examination is benign and unremarkable. He denies cough and urinary symptoms. He is cooperative at this time. 1013 form is filled out given suicidality with plan to overdose on street medications versus drive a car into traffic. A psychiatric consultation is requested. Patient denies urinary symptoms. At this point in time, patient does not appear to have an immediate medical contraindication to psychiatric admission, evaluation, consultation and placement. Critical care attestation.: If time is entered above; I have spent that time in minutes in the direct care of this critically ill patient, excluding procedure time. ED Disposition Clinical Impression: Suicidal thoughts, Medical clearance for psychiatric admission Disposition: DC/TX-65 PSY HOSP/PSY UNIT Is pt being admited?: No Does the pt Need Aspirin: No Condition: Good Referrals: PRIMARY CARE, [Primary Care Provider] - 3-5 Days
[2020-09-18] MEDS ORDERED: LORazepam 2 MG/ML VIAL IM PRN (16:06)
[2020-09-18] MEDS ORDERED: HALOPERIDOL LACTATE 5 MG/1 ML INJ IM PRN (16:06)
[2020-09-18 20:42] LABS: Amphetamine Screen,Urine Negative; Benzodiazepines Screen,Urine Negative; Methadone Screen,Urine Negative; Opiate Screen,Urine Negative
[2020-09-18 20:45] LABS: Bilirubin,Urine SM (Negative); Blood,Urine NEG (Negative); Color,Urine Amber (Yellow); Mucus,Urine 3+ /HPF
[2020-09-18 20:51] LABS: Ictotest,Urine Positive (Negative)
[2020-09-18 20:56] LABS: Cannabinoid Screen,Urine Positive; Cocaine Screen,Urine Positive
[2020-09-19 08:05] VITALS: BP 137/88
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
[2020-09-19] MEDS ORDERED: risperiDONE 0.25 MG TAB PO SCH (11:00)
[2020-09-19] MEDS ORDERED: DIVALPROEX DR 125 MG TAB PO SCH (11:00)
[2020-09-19] MEDS ORDERED: MELATONIN 5 MG TAB PO PRN (22:00)
[2020-09-19] MEDS ORDERED: traZODone 50 MG TAB PO SCH (22:00)
== END 2020-09-19 15:06 ==
LOC: ED 12:36
DX: F20.9 Schizophrenia, unspecified (principal); Z04.6 Encounter for general psychiatric examination, requested by authority; K21.9 Gastro-esophageal reflux disease without esophagitis; F12.10 Cannabis abuse, uncomplicated; F14.10 Cocaine abuse, uncomplicated; Z79.899 Other long term (current) drug therapy
CPT/HCPCS: 36415; 80048; 80307; 81001; 85025; 99284; Q0177; U0003; 80320; G0480

== ENCOUNTER 2020-09-19 11:40 | Inpatient (IN) | payer MEDICARE ==
--- NOTE | 2020-09-19 20:46 | Consultation ---
History of Present Illness - Reason for Consult Medical management Requesting physician: KENN CONTRERAS - History of Present Illness 54 YO Male with HTN, GERD admitted to [facility] for Psychiatric stabilization. Consult placed by Dr. Contreras for medical management. Patient s een and evaluated in the recreation room. Patient resting comfortably. No reported nursing events. Patient denies pain. No reports of fever, chills, chest pain, palpitation, productive cough, skin rash, recent ill contacts, or known exposure to COVID-19. Past History Past Medical History: GERD, hypertension Past Surgical History: hernia repair Social history: single Family history: diabetes, hypertension Medications and Allergies Allergies Allergy/AdvReac Type Severity Reaction Status Date / Time No Known Allergies Allergy Verified 09/18/20 12:40 Home Medications Medication Instructions Recorded Confirmed Last Taken Type raNITIdine HCl [Zantac] 150 mg PO AC 05/02/16 09/20/20 Unknown History DULoxetine [Cymbalta] 90 mg PO DAILY #90 capsule 01/26/19 09/20/20 Unknown Rx QUEtiapine [SEROquel] 100 mg PO TID #90 tablet 01/26/19 09/20/20 1 Day Ago Rx ~03/18/19 buPROPion XL [Wellbutrin XL] 150 mg PO QDAY #30 tablet 01/26/19 09/20/20 Unknown Rx hydrOXYzine PAMOATE [Vistaril] 50 mg PO Q6H PRN #60 capsule 01/26/19 09/20/20 Unknown Rx traZODone [Desyrel] 50 mg PO QHS PRN #30 tablet 01/26/19 09/20/20 Unknown Rx FLUoxetine HCL [PROzac] 40 mg PO QDAY 03/19/19 09/20/20 1 Day Ago History ~03/18/19 Review of Systems Constitutional: no weight loss, no fever, no chills Ears, nose, mouth and throat: no ear pain, no ear discharge, no nose pain, no nasal congestion Cardiovascular: no chest pain, no palpitations, no rapid/irregular heart beat, no syncope Respiratory: no cough, no excessive sputum, no hemoptysis, no shortness of breath Gastrointestinal: no abdominal pain, no nausea, no diarrhea, no hematemesis Genitourinary Male: no flank pain, no discharge, no nocturia Rectal: no pain, no incontinence Musculoskeletal: no neck stiffness, no neck pain, no arm numbness/tingling, no redness of joints Integumentary: no rash, no pruritis, no sores, no jaundice, no boils Neurological: no head injury, no transient paralysis, no tingling, no syncope Psychiatric: no anxiety, no memory loss, no change in sleep habits, no sleep disturbances, no change in libido, no disorientation Endocrine: no cold intolerance, no heat intolerance, no excessive thirst, no polydipsia, no nocturia Hematologic/Lymphatic: no easy bruising Allergic/Immunologic: no urticaria Exam - Constitutional General appearance: Present: no acute distress, well-nourished - EENT Eyes: Present: PERRL ENT: hearing intact, clear oral mucosa - Neck Neck: Present: supple, normal ROM - Respiratory Respiratory effort: normal Respiratory: bilateral: CTA - Cardiovascular Heart Sounds: Present: S1 & S2. Absent: rub, click - Extremities Extremities: pulses symmetrical, No edema Peripheral Pulses: within normal limits - Abdominal General gastrointestinal: Present: soft, non-tender, non-distended, normal bowel sounds Male genitourinary: Present: normal - Integumentary Integumentary: Present: clear, warm, dry - Musculoskeletal Musculoskeletal: gait normal, strength equal bilaterally - Psychiatric Psychiatric: appropriate mood/affect, intact judgment & insight - Neurologic Neurologic: CNII-XII intact, moves all extremities Results - Labs CBC & Chem 7: 09/20/20 05:50 09/20/20 05:50 Assessment and Plan - Patient Problems (1) GERD (gastroesophageal reflux disease) Current Visit: Yes Status: Acute Qualifiers: Esophagitis presence: without esophagitis Qualified Code(s): K21.9 - Gastro-esophageal reflux disease without esophagitis Plan to address problem: PPI therapy, supportive care, bland diet (2) HTN (hypertension) Current Visit: Yes Status: Acute Qualifiers: Hypertension type: essential hypertension Qualified Code(s): I10 - Essential (primary) hypertension Plan to address problem: Monitor blood pressure every shift, continue medical management.
[2020-09-19] MEDS ORDERED: QUEtiapine 100 MG TAB PO SCH (22:00)
[2020-09-20 06:25] LABS: Basophils % (Auto) 0.8 % (0.0-1.8); Eosinophils # (Auto) 0.2 K/mm3 (0.0-0.4); Eosinophils % (Auto) 4.6 % (0.0-4.3); Hematocrit 44.3 % (35.5-45.6); Hemoglobin 14.6 gm/dl (11.8-15.2); Lymphocytes # (Auto) 1.9 K/mm3 (1.2-5.4); Lymphocytes % (Auto) 37.5 % (13.4-35.0); Mean Corpuscular HGB Conc 33 % (32-34); Mean Corpuscular Volume 86 fl (84-94); Monocytes # (Auto) 0.7 K/mm3 (0.0-0.8); Monocytes % (Auto) 13.4 % (0.0-7.3); Platelet Count 136 K/mm3 (140-440); Red Blood Count 5.13 M/mm3 (3.65-5.03); Red Cell Distribution Width 13.4 % (13.2-15.2)
[2020-09-20 06:44] LABS: Alanine Aminotransferase 11 units/L (7-56); Albumin 3.9 g/dL (3.9-5); BUN/Creatinine Ratio 13; Blood Urea Nitrogen 14 mg/dL (9-20); Calcium 9.2 mg/dL (8.4-10.2); HDL Cholesterol 32 mg/dL (40-59); Hemolysis Index 9; LDL Cholesterol,Direct 116 mg/dL (50-130)
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
[2020-09-20] MEDS ORDERED: DULoxetine 30 MG CAP PO SCH (10:00)
[2020-09-20] MEDS: QUEtiapine 200 MG TAB PO SCH ×2 (11:36→21:19)
--- NOTE | 2020-09-21 08:09 | Progress Note ---
Subjective Date of service: 09/21/20 Principal diagnosis: MDD (major depressive disorder) Subjective Comment: Psych Nurse: pt spent the evening in activity room watching television, pt is alert and orientedx4, easily irritable, but cooperative, able to make needs known, hears voices that are telling him to kill himself, denies thought to hurt himself, consumed 100% of bedtime snack, medication compliant, no pain reported, no distress noted, will continue to monitor for safety. Psych Progress Patient reports not doing good today, endorses that he still hearing voices and being SI. Patient stated he states that because he is not happy with the way things are in his life, patient was counseled about drug use, patient states that he really only takes drugs because says only thing that brings about happiness at this time. Patient also wishes to be put back on Prozac. REVIEW OF SYSTEMS Constitutional: Negative for weight loss ENT: Negative for stridor Respiratory: Negative for cough or hemoptysis All other systems reviewed and are negative MENTAL STATUS EXAMINATION General Appearance and Behavior: Age appropriate, fair good hygiene, wearing appropriate clothes, good eye contact, cooperative but non polite Cooperation: Participating/engaged but guarded Psychomotor Behavior: unremarkable and within normal limits Mood: depressed Affect and affective range:irrtitable, dysthymic Thought Process: Fluent/Logical Thought Content: Within reality, hopelessness Speech: Normal volume, Regular rate and rhythm. Intellectual Functioning: Average Suicidal Ideation: Endorses SI Homicidal Ideation: Denies HI Impulse Control: Unimpaired Insight and Judgment: Normal insight and judgment Memory: Normal, Short term memory intact Attention: Normal Orientation: Alert, oriented Assessment and Plan - Psychiatric problem (1) Psychoactive substance-induced mood disorder Current Visit: Yes Status: Acute F19. 94 (2) MDD (major depressive disorder) Current Visit: Yes Status: Acute (PRIMARY) F33.1 (3) Cocaine use disorder, severe, dependence Current Visit: Yes Status: Acute f14.21 Treatment Plan Patient will be admitted for inpatient psychiatric evaluation, medication adjustment and close monitoring The patient's behavior, mood, sleep and appetite will be closely monitored. Patient will be enrolled in individual and group therapeutic sessions and encouraged to attend. Patient will be provided with a safe and structured environment. Patient's physical health needs will be addressed by the Hospitalist. Hospitalist Consulted Labs including CBC, CMP, Lipid profile and Hemoglobin A1C ordered Social Assessment will be completed and the Elevator Pilot will work with patient and family to ensure a suitable and safe disposition Medication adjustment will be made as clinically indicated Usual Wellness Sikhism/Preservation: - Start Trazodone 50 mg po QHS & 50 mg po QHS PRN between 10 PM & 2 AM for insomnia - Start Melatonin 5 mg po QHS to promote circadian rhythm - Start [place]-3 for brain health, reduce impulsivity, and as adjunctive treatment for mood disorder, continue upon discharge given overall benefits. - Start B1 prophylaxis with 200 mg po for 5 days The patient agreed on the treatment plan, understood the risk, benefit, alternative treatment, potential consequence of no treatment, and gave informed consent. Initial Certification This is an acknowledgement statement that JER MELGAR is a 54 year old M who requires inpatient psychiatric admission for treatment which could reasonably be expected to improve the patient's condition for Estimated period of time patient will need to remain in the hospital: [3] Plan for post-hospital care: [outpatient ] Medications and Allergies Allergies Allergy/AdvReac Type Severity Reaction Status Date / Time No Known Allergies Allergy Verified 09/18/20 12:40 Home Medications Medication Instructions Recorded Confirmed Last Taken Type raNITIdine HCl [Zantac] 150 mg PO AC 05/02/16 09/20/20 Unknown History DULoxetine [Cymbalta] 90 mg PO DAILY #90 capsule 01/26/19 09/20/20 Unknown Rx QUEtiapine [SEROquel] 100 mg PO TID #90 tablet 01/26/19 09/20/20 1 Day Ago Rx ~03/18/19 buPROPion XL [Wellbutrin XL] 150 mg PO QDAY #30 tablet 01/26/19 09/20/20 Unknown Rx hydrOXYzine PAMOATE [Vistaril] 50 mg PO Q6H PRN #60 capsule 01/26/19 09/20/20 Unknown Rx traZODone [Desyrel] 50 mg PO QHS PRN #30 tablet 01/26/19 09/20/20 Unknown Rx FLUoxetine HCL [PROzac] 40 mg PO QDAY 03/19/19 09/20/20 1 Day Ago History ~03/18/19 Active Meds: Active Medications Duloxetine HCl (Duloxetine 30 Mg Cap) 30 mg PO QDAY DENIZ Last Admin: 09/20/20 11:35 Dose: Not Given Documented by: Quetiapine Fumarate (Quetiapine 200 Mg Tab) 200 mg PO BID DENIZ Last Admin: 09/20/20 21:19 Dose: 200 mg Documented by: Results - Results Labs/Vitals: Laboratory Last Values WBC 5.1 K/mm3 (4.5-11.0) 09/20/20 05:50 RBC 5.13 M/mm3 (3.65-5.03) H 09/20/20 05:50 Hgb 14.6 gm/dl (11.8-15.2) 09/20/20 05:50 Hct 44.3 % (35.5-45.6) 09/20/20 05:50 MCV 86 fl (84-94) 09/20/20 05:50 MCH 29 pg (28-32) 09/20/20 05:50 MCHC 33 % (32-34) 09/20/20 05:50 RDW 13.4 % (13.2-15.2) 09/20/20 05:50 Plt Count 136 K/mm3 (140-440) L 09/20/20 05:50 Lymph % (Auto) 37.5 % (13.4-35.0) H 09/20/20 05:50 [place] % (Auto) 13.4 % (0.0-7.3) H 09/20/20 05:50 Eos % (Auto) 4.6 % (0.0-4.3) H 09/20/20 05:50 Baso % (Auto) 0.8 % (0.0-1.8) 09/20/20 05:50 Lymph # (Auto) 1.9 K/mm3 (1.2-5.4) 09/20/20 05:50 [place] # (Auto) 0.7 K/mm3 (0.0-0.8) 09/20/20 05:50 Eos # (Auto) 0.2 K/mm3 (0.0-0.4) 09/20/20 05:50 Baso # (Auto) 0.0 K/mm3 (0.0-0.1) 09/20/20 05:50 Seg Neutrophils % 43.7 % (40.0-70.0) 09/20/20 05:50 Seg Neutrophils # 2.2 K/mm3 (1.8-7.7) 09/20/20 05:50 Sodium 141 mmol/L (137-145) 09/20/20 05:50 Potassium 3.9 mmol/L (3.6-5.0) 09/20/20 05:50 Chloride 103.5 mmol/L (98-107) 09/20/20 05:50 Carbon Dioxide 31 mmol/L (22-30) H D 09/20/20 05:50 Anion Gap 10 mmol/L 09/20/20 05:50 BUN 14 mg/dL (9-20) 09/20/20 05:50 Creatinine 1.1 mg/dL (0.8-1.3) 09/20/20 05:50 Estimated GFR > 60 ml/min 09/20/20 05:50 BUN/Creatinine Ratio 13 % 09/20/20 05:50 Glucose 104 mg/dL (75-100) H 09/20/20 05:50 Hemoglobin A1c 5.3 % (4-6) 09/20/20 05:50 Calcium 9.2 mg/dL (8.4-10.2) 09/20/20 05:50 Total Bilirubin 0.60 mg/dL (0.1-1.2) 09/20/20 05:50 AST 15 units/L (5-40) 09/20/20 05:50 ALT 11 units/L (7-56) 09/20/20 05:50 Alkaline Phosphatase 66 units/L (35-129) 09/20/20 05:50 Total Protein 6.4 g/dL (6.3-8.2) 09/20/20 05:50 Albumin 3.9 g/dL (3.9-5) 09/20/20 05:50 Albumin/Globulin Ratio 1.6 % 09/20/20 05:50 Triglycerides 89 mg/dL (2-149) 09/20/20 05:50 Cholesterol 157 mg/dL (50-199) 09/20/20 05:50 LDL Cholesterol Direct 116 mg/dL (50-130) 09/20/20 05:50 HDL Cholesterol 32 mg/dL (40-59) L 09/20/20 05:50 Cholesterol/HDL Ratio 4.90 % 09/20/20 05:50 TSH 0.597 mlU/mL (0.270-4.200) 09/20/20 05:50 Last Vital Signs Temp 98.6 F 09/20/20 20:00 Pulse 71 09/20/20 20:00 Resp 17 09/20/20 20:00 BP 136/85 09/20/20 20:00 Pulse Ox 98 09/20/20 20:00
[2020-09-21] MEDS: FLUoxetine 10 MG TAB PO SCH (09:43)
[2020-09-21] MEDS: QUEtiapine 100 MG TAB PO SCH ×2 (09:43→21:27)
--- NOTE | 2020-09-22 08:19 | Progress Note ---
Subjective Date of service: 09/22/20 Principal diagnosis: MDD (major depressive disorder) Subjective Comment: Psych Nurse:Pt in room resting with eyes closed but easily aroused as short story writer knocked the door. Asked when snacks will be served and was told "momentarily." Denies pain, but muted when asked if he is suicidal or homicidal. No acute distress observed and none reported. Will continue to monitor closely for safety. Psych Progress Patient states that he is feeling very depressed today, endorses SI and HI thoughts of wanting to hurt self and stable, patient states he is this way because he does not like himself and is also due to provider and is always relapsing on drugs. Patient endorses good appetite and sleeping pattern. he also states he would like if could speak with his tomorrow because she has some questions. Reason for continuing inpatient psychiatric hospitalization: Persistent SI thoughts, and depressed mood REVIEW OF SYSTEMS Constitutional: Negative for weight loss ENT: Negative for stridor Respiratory: Negative for cough or hemoptysis All other systems reviewed and are negative MENTAL STATUS EXAMINATION General Appearance and Behavior: Age appropriate, fair good hygiene, wearing appropriate clothes, good eye contact, cooperative but non polite Cooperation: Participating/engaged but guarded Psychomotor Behavior: unremarkable and within normal limits Mood: depressed Affect and affective range:irrtitable, dysthymic Thought Process: Fluent/Logical Thought Content: Within reality, hopelessness Speech: Normal volume, Regular rate and rhythm. Intellectual Functioning: Average Suicidal Ideation: Endorses SI Homicidal Ideation: Denies HI Impulse Control: Unimpaired Insight and Judgment: Normal insight and judgment Memory: Normal, Short term memory intact Attention: Normal Orientation: Alert, oriented Assessment and Plan - Psychiatric problem (1) Psychoactive substance-induced mood disorder Current Visit: Yes Status: Acute F19. 94 (2) MDD (major depressive disorder) Current Visit: Yes Status: Acute (PRIMARY) F33.1 (3) Cocaine use disorder, severe, dependence Current Visit: Yes Status: Acute f14.21 Treatment Plan Patient will be admitted for inpatient psychiatric evaluation, medication adjustment and close monitoring The patient's behavior, mood, sleep and appetite will be closely monitored. Patient will be enrolled in individual and group therapeutic sessions and encouraged to attend. Patient will be provided with a safe and structured environment. Patient's physical health needs will be addressed by the Hospitalist. Hospitalist Consulted Labs including CBC, CMP, Lipid profile and Hemoglobin A1C ordered Social Assessment will be completed and the Oceanic Sciences Professor will work with patient and family to ensure a suitable and safe disposition Medication adjustment will be made as clinically indicated Usual Wellness Bahai/Preservation: - Start Trazodone 50 mg po QHS & 50 mg po QHS PRN between 10 PM & 2 AM for insomnia - Start Melatonin 5 mg po QHS to promote circadian rhythm - Start [place]-3 for brain health, reduce impulsivity, and as adjunctive treatment for mood disorder, continue upon discharge given overall benefits. - Start B1 prophylaxis with 200 mg po for 5 days The patient agreed on the treatment plan, understood the risk, benefit, alternative treatment, potential consequence of no treatment, and gave informed consent. Initial Certification This is an acknowledgement statement that JER MELGAR is a 54 year old M who requires inpatient psychiatric admission for treatment which could reasonably be expected to improve the patient's condition for Estimated period of time patient will need to remain in the hospital: [2] Plan for post-hospital care: [outpatient ] Medications and Allergies Allergies Allergy/AdvReac Type Severity Reaction Status Date / Time No Known Allergies Allergy Verified 09/18/20 12:40 Home Medications Medication Instructions Recorded Confirmed Last Taken Type raNITIdine HCl [Zantac] 150 mg PO AC 05/02/16 09/20/20 Unknown History DULoxetine [Cymbalta] 90 mg PO DAILY #90 capsule 01/26/19 09/20/20 Unknown Rx QUEtiapine [SEROquel] 100 mg PO TID #90 tablet 01/26/19 09/20/20 1 Day Ago Rx ~03/18/19 buPROPion XL [Wellbutrin XL] 150 mg PO QDAY #30 tablet 01/26/19 09/20/20 Unknown Rx hydrOXYzine PAMOATE [Vistaril] 50 mg PO Q6H PRN #60 capsule 01/26/19 09/20/20 U nknown Rx traZODone [Desyrel] 50 mg PO QHS PRN #30 tablet 01/26/19 09/20/20 Unknown Rx FLUoxetine HCL [PROzac] 40 mg PO QDAY 03/19/19 09/20/20 1 Day Ago History ~03/18/19 Active Meds: Active Medications Fluoxetine HCl (Fluoxetine 10 Mg Tab) 30 mg PO QDAY DENIZ Last Admin: 09/21/20 09:43 Dose: 30 mg Documented by: Quetiapine Fumarate (Quetiapine 100 Mg Tab) 300 mg PO BID DENIZ Last Admin: 09/21/20 21:27 Dose: 300 mg Documented by: Results - Results Labs/Vitals: Laboratory Last Values WBC 5.1 K/mm3 (4.5-11.0) 09/20/20 05:50 RBC 5.13 M/mm3 (3.65-5.03) H 09/20/20 05:50 Hgb 14.6 gm/dl (11.8-15.2) 09/20/20 05:50 Hct 44.3 % (35.5-45.6) 09/20/20 05:50 MCV 86 fl (84-94) 09/20/20 05:50 MCH 29 pg (28-32) 09/20/20 05:50 MCHC 33 % (32-34) 09/20/20 05:50 RDW 13.4 % (13.2-15.2) 09/20/20 05:50 Plt Count 136 K/mm3 (140-440) L 09/20/20 05:50 Lymph % (Auto) 37.5 % (13.4-35.0) H 09/20/20 05:50 [place] % (Auto) 13.4 % (0.0-7.3) H 09/20/20 05:50 Eos % (Auto) 4.6 % (0.0-4.3) H 09/20/20 05:50 Baso % (Auto) 0.8 % (0.0-1.8) 09/20/20 05:50 Lymph # (Auto) 1.9 K/mm3 (1.2-5.4) 09/20/20 05:50 [place] # (Auto) 0.7 K/mm3 (0.0-0.8) 09/20/20 05:50 Eos # (Auto) 0.2 K/mm3 (0.0-0.4) 09/20/20 05:50 Baso # (Auto) 0.0 K/mm3 (0.0-0.1) 09/20/20 05:50 Seg Neutrophils % 43.7 % (40.0-70.0) 09/20/20 05:50 Seg Neutrophils # 2.2 K/mm3 (1.8-7.7) 09/20/20 05:50 Sodium 141 mmol/L (137-145) 09/20/20 05:50 Potassium 3.9 mmol/L (3.6-5.0) 09/20/20 05:50 Chloride 103.5 mmol/L (98-107) 09/20/20 05:50 Carbon Dioxide 31 mmol/L (22-30) H D 09/20/20 05:50 Anion Gap 10 mmol/L 09/20/20 05:50 BUN 14 mg/dL (9-20) 09/20/20 05:50 Creatinine 1.1 mg/dL (0.8-1.3) 09/20/20 05:50 Estimated GFR > 60 ml/min 09/20/20 05:50 BUN/Creatinine Ratio 13 % 09/20/20 05:50 Glucose 104 mg/dL (75-100) H 09/20/20 05:50 Hemoglobin A1c 5.3 % (4-6) 09/20/20 05:50 Calcium 9.2 mg/dL (8.4-10.2) 09/20/20 05:50 Total Bilirubin 0.60 mg/dL (0.1-1.2) 09/20/20 05:50 AST 15 units/L (5-40) 09/20/20 05:50 ALT 11 units/L (7-56) 09/20/20 05:50 Alkaline Phosphatase 66 units/L (35-129) 09/20/20 05:50 Total Protein 6.4 g/dL (6.3-8.2) 09/20/20 05:50 Albumin 3.9 g/dL (3.9-5) 09/20/20 05:50 Albumin/Globulin Ratio 1.6 % 09/20/20 05:50 Triglycerides 89 mg/dL (2-149) 09/20/20 05:50 Cholesterol 157 mg/dL (50-199) 09/20/20 05:50 LDL Cholesterol Direct 116 mg/dL (50-130) 09/20/20 05:50 HDL Cholesterol 32 mg/dL (40-59) L 09/20/20 05:50 Cholesterol/HDL Ratio 4.90 % 09/20/20 05:50 TSH 0.597 mlU/mL (0.270-4.200) 09/20/20 05:50 Last Vital Signs Temp 98.4 F 09/21/20 20:35 Pulse 68 09/21/20 20:35 Resp 18 09/21/20 20:35 BP 130/81 09/21/20 20:35 Pulse Ox 99 09/21/20 20:35
[2020-09-22] MEDS: FLUoxetine 10 MG TAB PO SCH (09:17)
[2020-09-22] MEDS: QUEtiapine 100 MG TAB PO SCH ×2 (09:19→21:21)
--- NOTE | 2020-09-23 07:52 | Progress Note ---
Subjective Date of service: 09/23/20 Principal diagnosis: MDD (major depressive disorder) Subjective Comment: Psych Nurse:Patient spent most of the day in the dayroom watching tv and uses the phone. Patient is easily irritable and curses loud sometimes when things did not go his way. Pt. refused to answer when asked if he is suicidal or homicidal. He refused Seroquel this morning, says 'I don't want that s...., it knocks me out'. Will continue to monitor. Psych Progress Patient seen this AM, endorses getting slightly better but states he believe he will be getting there. Endorses intermittent SI thoughts, denies any other symptoms. Patient counselling or behv issues, informed patient to not curse or yell at nurses, patient agrees and also endorses to medication compliant. Reason for continuing inpatient psychiatric hospitalization: Persistent SI thoughts, and depressed mood REVIEW OF SYSTEMS Constitutional: Negative for weight loss ENT: Negative for stridor Respiratory: Negative for cough or hemoptysis All other systems reviewed and are negative MENTAL STATUS EXAMINATION General Appearance and Behavior: Age appropriate, fair good hygiene, wearing appropriate clothes, good eye contact, cooperative but non polite Cooperation: Participating/engaged but guarded Psychomotor Behavior: unremarkable and within normal limits Mood: depressed Affect and affective range:irrtitable, dysthymic Thought Process: Fluent/Logical Thought Content: Within reality, hopelessness Speech: Normal volume, Regular rate and rhythm. Intellectual Functioning: Average Suicidal Ideation: Endorses SI Homicidal Ideation: Denies HI Impulse Control: Unimpaired Insight and Judgment: Normal insight and judgment Memory: Normal, Short term memory intact Attention: Normal Orientation: Alert, oriented Assessment and Plan - Psychiatric problem (1) Psychoactive substance-induced mood disorder Current Visit: Yes Status: Acute F19. 94 (2) MDD (major depressive disorder) Current Visit: Yes Status: Acute (PRIMARY) F33.1 (3) Cocaine use disorder, severe, dependence Current Visit: Yes Status: Acute f14.21 Treatment Plan Continue current medications Patient will be admitted for inpatient psychiatric evaluation, medication adjustment and close monitoring The patient's behavior, mood, sleep and appetite will be closely monitored. Patient will be enrolled in individual and group therapeutic sessions and encouraged to attend. Patient will be provided with a safe and structured environment. Patient's physical health needs will be addressed by the Hospitalist. Hospitalist Consulted Labs including CBC, CMP, Lipid profile and Hemoglobin A1C ordered Social Assessment will be completed and the Wiring Technician will work with patient and family to ensure a suitable and safe disposition Medication adjustment will be made as clinically indicated Usual Wellness Scientology/Preservation: - Start Trazodone 50 mg po QHS & 50 mg po QHS PRN between 10 PM & 2 AM for insomnia - Start Melatonin 5 mg po QHS to promote circadian rhythm - Start [place]-3 for brain health, reduce impulsivity, and as adjunctive treatment for mood disorder, continue upon discharge given overall benefits. - Start B1 prophylaxis with 200 mg po for 5 days The patient agreed on the treatment plan, understood the risk, benefit, alternative treatment, potential consequence of no treatment, and gave informed consent. Initial Certification This is an acknowledgement statement that JER MELGAR is a 54 year old M who requires inpatient psychiatric admission for treatment which could reasonably be expected to improve the patient's condition for Estimated period of time patient will need to remain in the hospital: [3] Plan for post-hospital care: [outpatient ] Medications and Allergies Allergies Allergy/AdvReac Type Severity Reaction Status Date / Time No Known Allergies Allergy Verified 09/18/20 12:40 Home Medications Medication Instructions Recorded Confirmed Last Taken Type raNITIdine HCl [Zantac] 150 mg PO AC 05/02/16 09/20/20 Unknown History DULoxetine [Cymbalta] 90 mg PO DAILY #90 capsule 01/26/19 09/20/20 Unknown Rx QUEtiapine [SEROquel] 100 mg PO TID #90 tablet 01/26/19 09/20/20 1 Day Ago Rx ~03/18/19 buPROPion XL [Wellbutrin XL] 150 mg PO QDAY #30 tablet 01/26/19 09/20/20 Unknown Rx hydrOXYzine PAMOATE [Vistaril] 50 mg PO Q6H PRN #60 capsule 01/26/19 09/20/20 Unknown Rx traZODone [Desyrel] 50 mg PO QHS PRN #30 tablet 01/26/19 09/20/20 Unknown Rx FLUoxetine HCL [PROzac] 40 mg PO QDAY 03/19/19 09/20/20 1 Day Ago History ~03/18/19 Active Meds: Active Medications Fluoxetine HCl (Fluoxetine 10 Mg Tab) 30 mg PO QDAY DENIZ Last Admin: 09/22/20 09:17 Dose: 30 mg Documented by: Quetiapine Fumarate (Quetiapine 100 Mg Tab) 300 mg PO BID DENIZ Last Admin: 09/22/20 21:21 Dose: 300 mg Documented by: Results - Results Labs/Vitals: Laboratory Last Values WBC 5.1 K/mm3 (4.5-11.0) 09/20/20 05:50 RBC 5.13 M/mm3 (3.65-5.03) H 09/20/20 05:50 Hgb 14.6 gm/dl (11.8-15.2) 09/20/20 05:50 Hct 44.3 % (35.5-45.6) 09/20/20 05:50 MCV 86 fl (84-94) 09/20/20 05:50 MCH 29 pg (28-32) 09/20/20 05:50 MCHC 33 % (32-34) 09/20/20 05:50 RDW 13.4 % (13.2-15.2) 09/20/20 05:50 Plt Count 136 K/mm3 (140-440) L 09/20/20 05:50 Lymph % (Auto) 37.5 % (13.4-35.0) H 09/20/20 05:50 [place] % (Auto) 13.4 % (0.0-7.3) H 09/20/20 05:50 Eos % (Auto) 4.6 % (0.0-4.3) H 09/20/20 05:50 Baso % (Auto) 0.8 % (0.0-1.8) 09/20/20 05:50 Lymph # (Auto) 1.9 K/mm3 (1.2-5.4) 09/20/20 05:50 [place] # (Auto) 0.7 K/mm3 (0.0-0.8) 09/20/20 05:50 Eos # (Auto) 0.2 K/mm3 (0.0-0.4) 09/20/20 05:50 Baso # (Auto) 0.0 K/mm3 (0.0-0.1) 09/20/20 05:50 Seg Neutrophils % 43.7 % (40.0-70.0) 09/20/20 05:50 Seg Neutrophils # 2.2 K/mm3 (1.8-7.7) 09/20/20 05:50 Sodium 141 mmol/L (137-145) 09/20/20 05:50 Potassium 3.9 mmol/L (3.6-5.0) 09/20/20 05:50 Chloride 103.5 mmol/L (98-107) 09/20/20 05:50 Carbon Dioxide 31 mmol/L (22-30) H D 09/20/20 05:50 Anion Gap 10 mmol/L 09/20/20 05:50 BUN 14 mg/dL (9-20) 09/20/20 05:50 Creatinine 1.1 mg/dL (0.8-1.3) 09/20/20 05:50 Estimated GFR > 60 ml/min 09/20/20 05:50 BUN/Creatinine Ratio 13 % 09/20/20 05:50 Glucose 104 mg/dL (75-100) H 09/20/20 05:50 Hemoglobin A1c 5.3 % (4-6) 09/20/20 05:50 Calcium 9.2 mg/dL (8.4-10.2) 09/20/20 05:50 Total Bilirubin 0.60 mg/dL (0.1-1.2) 09/20/20 05:50 AST 15 units/L (5-40) 09/20/20 05:50 ALT 11 units/L (7-56) 09/20/20 05:50 Alkaline Phosphatase 66 units/L (35-129) 09/20/20 05:50 Total Protein 6.4 g/dL (6.3-8.2) 09/20/20 05:50 Albumin 3.9 g/dL (3.9-5) 09/20/20 05:50 Albumin/Globulin Ratio 1.6 % 09/20/20 05:50 Triglycerides 89 mg/dL (2-149) 09/20/20 05:50 Cholesterol 157 mg/dL (50-199) 09/20/20 05:50 LDL Cholesterol Direct 116 mg/dL (50-130) 09/20/20 05:50 HDL Cholesterol 32 mg/dL (40-59) L 09/20/20 05:50 Cholesterol/HDL Ratio 4.90 % 09/20/20 05:50 TSH 0.597 mlU/mL (0.270-4.200) 09/20/20 05:50 Last Vital Signs Temp 98.1 F 09/22/20 19:19 Pulse 70 09/22/20 19:19 Resp 20 09/22/20 19:19 BP 130/77 09/22/20 19:19 Pulse Ox 98 09/22/20 19:19
[2020-09-23] MEDS: FLUoxetine 10 MG TAB PO SCH (10:00)
[2020-09-23] MEDS: QUEtiapine 100 MG TAB PO SCH ×2 (10:00→21:21)
[2020-09-23] MEDS: PANTOPRAZOLE 20 MG TAB PO SCH (12:01)
--- NOTE | 2020-09-23 16:48 | Progress Note ---
Assessment and Plan - Patient Problems (1) GERD (gastroesophageal reflux disease) Current Visit: Yes Status: Acute Qualifiers: Esophagitis presence: without esophagitis Qualified Code(s): K21.9 - Gastro-esophageal reflux disease without esophagitis Plan to address problem: PPI therapy, supportive care, bland diet (2) HTN (hypertension) Current Visit: Yes Status: Acute Qualifiers: Hypertension type: essential hypertension Qualified Code(s): I10 - Essential (primary) hypertension Plan to address problem: Monitor blood pressure every shift, continue medical management. History Interval history: 54 YO Male with HTN, GERD admitted to [facility] for Psychiatric stabilization. . Patient seen and evaluated in the recreation room. Patient resting comfortably. No reported nursing events. Patient denies pain. Hospitalist Physical - Constitutional Vitals: Temp Pulse Resp BP Pulse Ox 97.9 F 65 16 148/95 100 09/23/20 07:57 09/23/20 07:57 09/23/20 07:57 09/23/20 07:57 09/23/20 07:57 General appearance: Present: no acute distress, well-nourished - EENT Eyes: Present: PERRL, EOM intact ENT: hearing intact, dentition normal - Neck Neck: Present: supple - Respiratory Respiratory effort: normal Respiratory: bilateral: CTA - Cardiovascular Rhythm: regular Heart Sounds: Present: S1 & S2 - Extremities Extremities: no ischemia Peripheral Pulses: within normal limits - Abdominal General gastrointestinal: soft, non-tender, non-distended - Integumentary Integumentary: Present: clear, dry - Psychiatric Psychiatric: cooperative - Neurologic Neurologic: CNII-XII intact Results - Labs CBC & Chem 7: 09/20/20 05:50 09/20/20 05:50 Labs: Laboratory Last Values WBC 5.1 K/mm3 (4.5-11.0) 09/20/20 05:50 RBC 5.13 M/mm3 (3.65-5.03) H 09/20/20 05:50 Hgb 14.6 gm/dl (11.8-15.2) 09/20/20 05:50 Hct 44.3 % (35.5-45.6) 09/20/20 05:50 MCV 86 fl (84-94) 09/20/20 05:50 MCH 29 pg (28-32) 09/20/20 05:50 MCHC 33 % (32-34) 09/20/20 05:50 RDW 13.4 % (13.2-15.2) 09/20/20 05:50 Plt Count 136 K/mm3 (140-440) L 09/20/20 05:50 Lymph % (Auto) 37.5 % (13.4-35.0) H 09/20/20 05:50 [place] % (Auto) 13.4 % (0.0-7.3) H 09/20/20 05:50 Eos % (Auto) 4.6 % (0.0-4.3) H 09/20/20 05:50 Baso % (Auto) 0.8 % (0.0-1.8) 09/20/20 05:50 Lymph # (Auto) 1.9 K/mm3 (1.2-5.4) 09/20/20 05:50 [place] # (Auto) 0.7 K/mm3 (0.0-0.8) 09/20/20 05:50 Eos # (Auto) 0.2 K/mm3 (0.0-0.4) 09/20/20 05:50 Baso # (Auto) 0.0 K/mm3 (0.0-0.1) 09/20/20 05:50 Seg Neutrophils % 43.7 % (40.0-70.0) 09/20/20 05:50 Seg Neutrophils # 2.2 K/mm3 (1.8-7.7) 09/20/20 05:50 Sodium 141 mmol/L (137-145) 09/20/20 05:50 Potassium 3.9 mmol/L (3.6-5.0) 09/20/20 05:50 Chloride 103.5 mmol/L (98-107) 09/20/20 05:50 Carbon Dioxide 31 mmol/L (22-30) H D 09/20/20 05:50 Anion Gap 10 mmol/L 09/20/20 05:50 BUN 14 mg/dL (9-20) 09/20/20 05:50 Creatinine 1.1 mg/dL (0.8-1.3) 09/20/20 05:50 Estimated GFR > 60 ml/min 09/20/20 05:50 BUN/Creatinine Ratio 13 % 09/20/20 05:50 Glucose 104 mg/dL (75-100) H 09/20/20 05:50 Hemoglobin A1c 5.3 % (4-6) 09/20/20 05:50 Calcium 9.2 mg/dL (8.4-10.2) 09/20/20 05:50 Total Bilirubin 0.60 mg/dL (0.1-1.2) 09/20/20 05:50 AST 15 units/L (5-40) 09/20/20 05:50 ALT 11 units/L (7-56) 09/20/20 05:50 Alkaline Phosphatase 66 units/L (35-129) 09/20/20 05:50 Total Protein 6.4 g/dL (6.3-8.2) 09/20/20 05:50 Albumin 3.9 g/dL (3.9-5) 09/20/20 05:50 Albumin/Globulin Ratio 1.6 % 09/20/20 05:50 Triglycerides 89 mg/dL (2-149) 09/20/20 05:50 Cholesterol 157 mg/dL (50-199) 09/20/20 05:50 LDL Cholesterol Direct 116 mg/dL (50-130) 09/20/20 05:50 HDL Cholesterol 32 mg/dL (40-59) L 09/20/20 05:50 Cholesterol/HDL Ratio 4.90 % 09/20/20 05:50 TSH 0.597 mlU/mL (0.270-4.200) 09/20/20 05:50 [place]/IV: Voiding Method Toilet Active Medications - Current Medications Current Medications: Generic Name Dose Route Start Last Admin Trade Name Wingq PRN Reason Stop Dose Admin Fluoxetine HCl 30 mg 09/21/20 10:00 09/23/20 10:00 Fluoxetine 10 Mg Tab PO 30 mg QDAY DENIZ Administration Pantoprazole Sodium 20 mg 09/23/20 11:00 09/23/20 12:01 Pantoprazole 20 Mg Tab PO 20 mg QDAC DENIZ Administration Quetiapine Fumarate 300 mg 09/21/20 10:00 09/23/20 10:00 Quetiapine 100 Mg Tab PO 300 mg BID DENIZ Administration
--- NOTE | 2020-09-23 16:51 | Progress Note ---
Assessment and Plan - Patient Problems (1) GERD (gastroesophageal reflux disease) Current Visit: Yes Status: Acute Qualifiers: Esophagitis presence: without esophagitis Qualified Code(s): K21.9 - Gastro-esophageal reflux disease without esophagitis Plan to address problem: PPI therapy, supportive care, bland diet (2) HTN (hypertension) Current Visit: Yes Status: Acute Qualifiers: Hypertension type: essential hypertension Qualified Code(s): I10 - Essential (primary) hypertension Plan to address problem: Monitor blood pressure every shift, continue medical management. History Interval history: 54 YO Male with HTN, GERD admitted to [facility] for Psychiatric stabilization. . Patient seen and evaluated in the recreation room. Patient resting comfortably. No reported nursing events. Patient denies pain. Hospitalist Physical - Constitutional Vitals: Temp Pulse Resp BP Pulse Ox 97.9 F 65 16 148/95 100 09/23/20 07:57 09/23/20 07:57 09/23/20 07:57 09/23/20 07:57 09/23/20 07:57 General appearance: Present: no acute distress, well-nourished - EENT Eyes: Present: PERRL, EOM intact ENT: hearing intact - Neck Neck: Present: supple - Respiratory Respiratory effort: normal Respiratory: bilateral: CTA - Cardiovascular Rhythm: regular Heart Sounds: Present: S1 & S2 - Extremities Extremities: no ischemia Peripheral Pulses: within normal limits - Abdominal General gastrointestinal: soft, non-tender, non-distended - Integumentary Integumentary: Present: clear, dry - Psychiatric Psychiatric: appropriate mood/affect, cooperative - Neurologic Neurologic: CNII-XII intact Results - Labs CBC & Chem 7: 09/20/20 05:50 09/20/20 05:50 Labs: Laboratory Last Values WBC 5.1 K/mm3 (4.5-11.0) 09/20/20 05:50 RBC 5.13 M/mm3 (3.65-5.03) H 09/20/20 05:50 Hgb 14.6 gm/dl (11.8-15.2) 09/20/20 05:50 Hct 44.3 % (35.5-45.6) 09/20/20 05:50 MCV 86 fl (84-94) 09/20/20 05:50 MCH 29 pg (28-32) 09/20/20 05:50 MCHC 33 % (32-34) 09/20/20 05:50 RDW 13.4 % (13.2-15.2) 09/20/20 05:50 Plt Count 136 K/mm3 (140-440) L 09/20/20 05:50 Lymph % (Auto) 37.5 % (13.4-35.0) H 09/20/20 05:50 [place] % (Auto) 13.4 % (0.0-7.3) H 09/20/20 05:50 Eos % (Auto) 4.6 % (0.0-4.3) H 09/20/20 05:50 Baso % (Auto) 0.8 % (0.0-1.8) 09/20/20 05:50 Lymph # (Auto) 1.9 K/mm3 (1.2-5.4) 09/20/20 05:50 [place] # (Auto) 0.7 K/mm3 (0.0-0.8) 09/20/20 05:50 Eos # (Auto) 0.2 K/mm3 (0.0-0.4) 09/20/20 05:50 Baso # (Auto) 0.0 K/mm3 (0.0-0.1) 09/20/20 05:50 Seg Neutrophils % 43.7 % (40.0-70.0) 09/20/20 05:50 Seg Neutrophils # 2.2 K/mm3 (1.8-7.7) 09/20/20 05:50 Sodium 141 mmol/L (137-145) 09/20/20 05:50 Potassium 3.9 mmol/L (3.6-5.0) 09/20/20 05:50 Chloride 103.5 mmol/L (98-107) 09/20/20 05:50 Carbon Dioxide 31 mmol/L (22-30) H D 09/20/20 05:50 Anion Gap 10 mmol/L 09/20/20 05:50 BUN 14 mg/dL (9-20) 09/20/20 05:50 Creatinine 1.1 mg/dL (0.8-1.3) 09/20/20 05:50 Estimated GFR > 60 ml/min 09/20/20 05:50 BUN/Creatinine Ratio 13 % 09/20/20 05:50 Glucose 104 mg/dL (75-100) H 09/20/20 05:50 Hemoglobin A1c 5.3 % (4-6) 09/20/20 05:50 Calcium 9.2 mg/dL (8.4-10.2) 09/20/20 05:50 Total Bilirubin 0.60 mg/dL (0.1-1.2) 09/20/20 05:50 AST 15 units/L (5-40) 09/20/20 05:50 ALT 11 units/L (7-56) 09/20/20 05:50 Alkaline Phosphatase 66 units/L (35-129) 09/20/20 05:50 Total Protein 6.4 g/dL (6.3-8.2) 09/20/20 05:50 Albumin 3.9 g/dL (3.9-5) 09/20/20 05:50 Albumin/Globulin Ratio 1.6 % 09/20/20 05:50 Triglycerides 89 mg/dL (2-149) 09/20/20 05:50 Cholesterol 157 mg/dL (50-199) 09/20/20 05:50 LDL Cholesterol Direct 116 mg/dL (50-130) 09/20/20 05:50 HDL Cholesterol 32 mg/dL (40-59) L 09/20/20 05:50 Cholesterol/HDL Ratio 4.90 % 09/20/20 05:50 TSH 0.597 mlU/mL (0.270-4.200) 09/20/20 05:50 [place]/IV: Voiding Method Toilet Active Medications - Current Medications Current Medications: Generic Name Dose Route Start Last Admin Trade Name Wingq PRN Reason Stop Dose Admin Fluoxetine HCl 30 mg 09/21/20 10:00 09/23/20 10:00 Fluoxetine 10 Mg Tab PO 30 mg QDAY DENIZ Administration Pantoprazole Sodium 20 mg 09/23/20 11:00 09/23/20 12:01 Pantoprazole 20 Mg Tab PO 20 mg QDAC DENIZ Administration Quetiapine Fumarate 300 mg 09/21/20 10:00 09/23/20 10:00 Quetiapine 100 Mg Tab PO 300 mg BID DENIZ Administration
--- NOTE | 2020-09-24 08:13 | Progress Note ---
Subjective Date of service: 09/24/20 Principal diagnosis: MDD (major depressive disorder) Subjective Comment: Psych Nurse:pt spent the evening in activity room sleeping in elyssa chair, no behavioral issues, calm and cooperative, able to make needs known, medication compliant, good appetite, denies si/hi, denies a/v/h, no distress noted, will continue to monitor for safety. Psych Progress Patient seen this AM, denies SI, HI or AVH. Patient reports feeling better, glad medication finally working. He states he was initially discussing with social work to [facility] but has now changed his mind, to be discharged home to after speaking with his . Reason for continuing inpatient psychiatric hospitalization: Improved mood, denies SI, HI with plan to discharge home tomorrow. REVIEW OF SYSTEMS Constitutional: Negative for weight loss ENT: Negative for stridor Respiratory: Negative for cough or hemoptysis All other systems reviewed and are negative MENTAL STATUS EXAMINATION General Appearance and Behavior: Age appropriate, good hygiene, wearing appropriate clothes, good eye contact, cooperative bu polite Cooperation: Participating/engaged Psychomotor Behavior: unremarkable and within normal limits Mood: Affect and affective range:irrtitable, dysthymic Thought Process: Fluent/Logical Thought Content: Within reality, Speech: Normal volume, Regular rate and rhythm. Intellectual Functioning: Average Suicidal Ideation: Denies SI Homicidal Ideation: Denies HI Impulse Control: Unimpaired Insight and Judgment: Normal insight and judgment Memory: Normal, Attention: Normal Orientation: Alert, oriented Assessment and Plan - Psychiatric problem (1) Psychoactive substance-induced mood disorder Current Visit: Yes Status: Acute F19. 94 (2) MDD (major depressive disorder) Current Visit: Yes Status: Acute (PRIMARY) F33.1 (3) Cocaine use disorder, severe, dependence Current Visit: Yes Status: Acute f14.21 Treatment Plan Continue current medications Patient will be admitted for inpatient psychiatric evaluation, medication adjustment and close monitoring The patient's behavior, mood, sleep and appetite will be closely monitored. Patient will be enrolled in individual and group therapeutic sessions and encouraged to attend. Patient will be provided with a safe and structured environment. Patient's physical health needs will be addressed by the Hospitalist. Hospitalist Consulted Labs including CBC, CMP, Lipid profile and Hemoglobin A1C ordered Social Assessment will be completed and the Deck And Hull Assembler will work with patient and family to ensure a suitable and safe disposition Medication adjustment will be made as clinically indicated Usual Wellness Anabaptist/Preservation: - Start Trazodone 50 mg po QHS & 50 mg po QHS PRN between 10 PM & 2 AM for insomnia - Start Melatonin 5 mg po QHS to promote circadian rhythm - Start [place]-3 for brain health, reduce impulsivity, and as adjunctive treatment for mood disorder, continue upon discharge given overall benefits. - Start B1 prophylaxis with 200 mg po for 5 days The patient agreed on the treatment plan, understood the risk, benefit, alternative treatment, potential consequence of no treatment, and gave informed consent. Initial Certification This is an acknowledgement statement that JER MELGAR is a 54 year old M who requires inpatient psychiatric admission for treatment which could reasonably be expected to improve the patient's condition for Estimated period of time patient will need to remain in the hospital: 1 Plan for post-hospital care: [outpatient ] Medications and Allergies Allergies Allergy/AdvReac Type Severity Reaction Status Date / Time No Known Allergies Allergy Verified 09/18/20 12:40 Home Medications Medication Instructions Recorded Confirmed Last Taken Type raNITIdine HCl [Zantac] 150 mg PO AC 05/02/16 09/20/20 Unknown History DULoxetine [Cymbalta] 90 mg PO DAILY #90 capsule 01/26/19 09/20/20 Unknown Rx QUEtiapine [SEROquel] 100 mg PO TID #90 tablet 01/26/19 09/20/20 1 Day Ago Rx ~03/18/19 buPROPion XL [Wellbutrin XL] 150 mg PO QDAY #30 tablet 01/26/19 09/20/20 Unknown Rx hydrOXYzine PAMOATE [Vistaril] 50 mg PO Q6H PRN #60 capsule 01/26/19 09/20/20 Unknown Rx traZODone [Desyrel] 50 mg PO QHS PRN #30 tablet 01/26/19 09/20/20 Unknown Rx FLUoxetine HCL [PROzac] 40 mg PO QDAY 03/19/19 09/20/20 1 Day Ago History ~03/18/19 Active Meds: Active Medications Fluoxetine HCl (Fluoxetine 10 Mg Tab) 30 mg PO QDAY [facility] Last Admin: 09/23/20 10:00 Dose: 30 mg Documented by: Pantoprazole Sodium (Pantoprazole 20 Mg Tab) 20 mg PO QDAC [facility] Last Admin: 09/23/20 12:01 Dose: 20 mg Documented by: Quetiapine Fumarate (Quetiapine 100 Mg Tab) 300 mg PO BID DENIZ Last Admin: 09/23/20 21:21 Dose: 300 mg Documented by: Results - Results Labs/Vitals: Laboratory Last Values WBC 5.1 K/mm3 (4.5-11.0) 09/20/20 05:50 RBC 5.13 M/mm3 (3.65-5.03) H 09/20/20 05:50 Hgb 14.6 gm/dl (11.8-15.2) 09/20/20 05:50 Hct 44.3 % (35.5-45.6) 09/20/20 05:50 MCV 86 fl (84-94) 09/20/20 05:50 MCH 29 pg (28-32) 09/20/20 05:50 MCHC 33 % (32-34) 09/20/20 05:50 RDW 13.4 % (13.2-15.2) 09/20/20 05:50 Plt Count 136 K/mm3 (140-440) L 09/20/20 05:50 Lymph % (Auto) 37.5 % (13.4-35.0) H 09/20/20 05:50 [place] % (Auto) 13.4 % (0.0-7.3) H 09/20/20 05:50 Eos % (Auto) 4.6 % (0.0-4.3) H 09/20/20 05:50 Baso % (Auto) 0.8 % (0.0-1.8) 09/20/20 05:50 Lymph # (Auto) 1.9 K/mm3 (1.2-5.4) 09/20/20 05:50 [place] # (Auto) 0.7 K/mm3 (0.0-0.8) 09/20/20 05:50 Eos # (Auto) 0.2 K/mm3 (0.0-0.4) 09/20/20 05:50 Baso # (Auto) 0.0 K/mm3 (0.0-0.1) 09/20/20 05:50 Seg Neutrophils % 43.7 % (40.0-70.0) 09/20/20 05:50 Seg Neutrophils # 2.2 K/mm3 (1.8-7.7) 09/20/20 05:50 Sodium 141 mmol/L (137-145) 09/20/20 05:50 Potassium 3.9 mmol/L (3.6-5.0) 09/20/20 05:50 Chloride 103.5 mmol/L (98-107) 09/20/20 05:50 Carbon Dioxide 31 mmol/L (22-30) H D 09/20/20 05:50 Anion Gap 10 mmol/L 09/20/20 05:50 BUN 14 mg/dL (9-20) 09/20/20 05:50 Creatinine 1.1 mg/dL (0.8-1.3) 09/20/20 05:50 Estimated GFR > 60 ml/min 09/20/20 05:50 BUN/Creatinine Ratio 13 % 09/20/20 05:50 Glucose 104 mg/dL (75-100) H 09/20/20 05:50 Hemoglobin A1c 5.3 % (4-6) 09/20/20 05:50 Calcium 9.2 mg/dL (8.4-10.2) 09/20/20 05:50 Total Bilirubin 0.60 mg/dL (0.1-1.2) 09/20/20 05:50 AST 15 units/L (5-40) 09/20/20 05:50 ALT 11 units/L (7-56) 09/20/20 05:50 Alkaline Phosphatase 66 units/L (35-129) 09/20/20 05:50 Total Protein 6.4 g/dL (6.3-8.2) 09/20/20 05:50 Albumin 3.9 g/dL (3.9-5) 09/20/20 05:50 Albumin/Globulin Ratio 1.6 % 09/20/20 05:50 Triglycerides 89 mg/dL (2-149) 09/20/20 05:50 Cholesterol 157 mg/dL (50-199) 09/20/20 05:50 LDL Cholesterol Direct 116 mg/dL (50-130) 09/20/20 05:50 HDL Cholesterol 32 mg/dL (40-59) L 09/20/20 05:50 Cholesterol/HDL Ratio 4.90 % 09/20/20 05:50 TSH 0.597 mlU/mL (0.270-4.200) 09/20/20 05:50 Last Vital Signs Temp 98.5 F 09/23/20 19:00 Pulse 77 09/23/20 19:00 Resp 17 09/23/20 19:00 BP 120/66 09/23/20 19:00 Pulse Ox 97 09/23/20 19:00
[2020-09-24] MEDS: QUEtiapine 100 MG TAB PO SCH ×2 (09:49→21:14)
[2020-09-24] MEDS: PANTOPRAZOLE 20 MG TAB PO SCH (09:49)
[2020-09-24] MEDS: FLUoxetine 10 MG TAB PO SCH (09:49)
[2020-09-25 08:07] VITALS: BP 120/73
--- NOTE | 2020-09-25 08:25 | Progress Note ---
Subjective Date of service: 09/25/20 Principal diagnosis: MDD (major depressive disorder) Subjective Comment: Psych Nurse:pt spent the evening in activity room sleeping in elyssa chair, no behavioral issues, calm and cooperative, able to make needs known, medication compliant, good appetite, denies si/hi, denies a/v/h, no distress noted, will continue to monitor for safety. Psych Progress Patient seen this a.m., patient in elated mood and excited to be going home today. Patient states she feels her depression mostly himself, and also questions to shave prior to going home. Patient denies suicidal ideation, homicidal ideation, and also any auditory visual hallucination. Also notes reviewed no abnormal behavior reported Reason for continuing inpatient psychiatric hospitalization: Plan to discharge today REVIEW OF SYSTEMS Constitutional: Negative for weight loss ENT: Negative for stridor Respiratory: Negative for cough or hemoptysis All other systems reviewed and are negative MENTAL STATUS EXAMINATION General Appearance and Behavior: Age appropriate, good hygiene, wearing appropriate clothes, good eye contact, cooperative bu polite Cooperation: Participating/engaged Psychomotor Behavior: unremarkable and within normal limits Mood: Affect and affective range:irrtitable, dysthymic Thought Process: Fluent/Logical Thought Content: Within reality, Speech: Normal volume, Regular rate and rhythm. Intellectual Functioning: Average Suicidal Ideation: Denies SI Homicidal Ideation: Denies HI Impulse Control: Unimpaired Insight and Judgment: Normal insight and judgment Memory: Normal, Attention: Normal Orientation: Alert, oriented Assessment and Plan - Psychiatric problem (1) Psychoactive substance-induced mood disorder Current Visit: Yes Status: Acute F19. 94 (2) MDD (major depressive disorder) Current Visit: Yes Status: Acute (PRIMARY) F33.1 (3) Cocaine use disorder, severe, dependence Current Visit: Yes Status: Acute f14.21 Treatment Plan Continue current medications Patient will be admitted for inpatient psychiatric evaluation, medication adjustment and close monitoring The patient's behavior, mood, sleep and appetite will be closely monitored. Patient will be enrolled in individual and group therapeutic sessions and encouraged to attend. Patient will be provided with a safe and structured environment. Patient's physical health needs will be addressed by the Hospitalist. Hospitalist Consulted Labs including CBC, CMP, Lipid profile and Hemoglobin A1C ordered Social Assessment will be completed and the Deck Mate will work with patient and family to ensure a suitable and safe disposition Medication adjustment will be made as clinically indicated Usual Wellness Presybeterian/Preservation: - Start Trazodone 50 mg po QHS & 50 mg po QHS PRN between 10 PM & 2 AM for insomnia - Start Melatonin 5 mg po QHS to promote circadian rhythm - Start [place]-3 for brain health, reduce impulsivity, and as adjunctive treatment for mood disorder, continue upon discharge given overall benefits. - Start B1 prophylaxis with 200 mg po for 5 days The patient agreed on the treatment plan, understood the risk, benefit, alternative treatment, potential consequence of no treatment, and gave informed consent. Initial Certification This is an acknowledgement statement that JER MELGAR is a 54 year old M who requires inpatient psychiatric admission for treatment which could reasonably be expected to improve the patient's condition for Estimated period of time patient will need to remain in the hospital: 1 Plan for post-hospital care: [outpatient ] Medications and Allergies Allergies Allergy/AdvReac Type Severity Reaction Status Date / Time No Known Allergies Allergy Verified 09/18/20 12:40 Home Medications Medication Instructions Recorded Confirmed Last Taken Type raNITIdine HCl [Zantac] 150 mg PO AC 05/02/16 09/20/20 Unknown History DULoxetine [Cymbalta] 90 mg PO DAILY #90 capsule 01/26/19 09/20/20 Unknown Rx QUEtiapine [SEROquel] 100 mg PO TID #90 tablet 01/26/19 09/20/20 1 Day Ago Rx ~03/18/19 buPROPion XL [Wellbutrin XL] 150 mg PO QDAY #30 tablet 01/26/19 09/20/20 Unknown Rx hydrOXYzine PAMOATE [Vistaril] 50 mg PO Q6H PRN #60 capsule 01/26/19 09/20/20 Unknown Rx traZODone [Desyrel] 50 mg PO QHS PRN #30 tablet 01/26/19 09/20/20 Unknown Rx FLUoxetine HCL [PROzac] 40 mg PO QDAY 03/19/19 09/20/20 1 Day Ago History ~03/18/19 Active Meds: Active Medications Fluoxetine HCl (Fluoxetine 10 Mg Tab) 30 mg PO QDAY [facility] Last Admin: 09/24/20 09:49 Dose: 30 mg Documented by: Pantoprazole Sodium (Pantoprazole 20 Mg Tab) 20 mg PO QDAC [facility] Last Admin: 09/24/20 09:49 Dose: 20 mg Documented by: Quetiapine Fumarate (Quetiapine 100 Mg Tab) 300 mg PO BID DENIZ Last Admin: 09/24/20 21:14 Dose: 300 mg Documented by: Results - Results Labs/Vitals: Laboratory Last Values WBC 5.1 K/mm3 (4.5-11.0) 09/20/20 05:50 RBC 5.13 M/mm3 (3.65-5.03) H 09/20/20 05:50 Hgb 14.6 gm/dl (11.8-15.2) 09/20/20 05:50 Hct 44.3 % (35.5-45.6) 09/20/20 05:50 MCV 86 fl (84-94) 09/20/20 05:50 MCH 29 pg (28-32) 09/20/20 05:50 MCHC 33 % (32-34) 09/20/20 05:50 RDW 13.4 % (13.2-15.2) 09/20/20 05:50 Plt Count 136 K/mm3 (140-440) L 09/20/20 05:50 Lymph % (Auto) 37.5 % (13.4-35.0) H 09/20/20 05:50 [place] % (Auto) 13.4 % (0.0-7.3) H 09/20/20 05:50 Eos % (Auto) 4.6 % (0.0-4.3) H 09/20/20 05:50 Baso % (Auto) 0.8 % (0.0-1.8) 09/20/20 05:50 Lymph # (Auto) 1.9 K/mm3 (1.2-5.4) 09/20/20 05:50 [place] # (Auto) 0.7 K/mm3 (0.0-0.8) 09/20/20 05:50 Eos # (Auto) 0.2 K/mm3 (0.0-0.4) 09/20/20 05:50 Baso # (Auto) 0.0 K/mm3 (0.0-0.1) 09/20/20 05:50 Seg Neutrophils % 43.7 % (40.0-70.0) 09/20/20 05:50 Seg Neutrophils # 2.2 K/mm3 (1.8-7.7) 09/20/20 05:50 Sodium 141 mmol/L (137-145) 09/20/20 05:50 Potassium 3.9 mmol/L (3.6-5.0) 09/20/20 05:50 Chloride 103.5 mmol/L (98-107) 09/20/20 05:50 Carbon Dioxide 31 mmol/L (22-30) H D 09/20/20 05:50 Anion Gap 10 mmol/L 09/20/20 05:50 BUN 14 mg/dL (9-20) 09/20/20 05:50 Creatinine 1.1 mg/dL (0.8-1.3) 09/20/20 05:50 Estimated GFR > 60 ml/min 09/20/20 05:50 BUN/Creatinine Ratio 13 % 09/20/20 05:50 Glucose 104 mg/dL (75-100) H 09/20/20 05:50 Hemoglobin A1c 5.3 % (4-6) 09/20/20 05:50 Calcium 9.2 mg/dL (8.4-10.2) 09/20/20 05:50 Total Bilirubin 0.60 mg/dL (0.1-1.2) 09/20/20 05:50 AST 15 units/L (5-40) 09/20/20 05:50 ALT 11 units/L (7-56) 09/20/20 05:50 Alkaline Phosphatase 66 units/L (35-129) 09/20/20 05:50 Total Protein 6.4 g/dL (6.3-8.2) 09/20/20 05:50 Albumin 3.9 g/dL (3.9-5) 09/20/20 05:50 Albumin/Globulin Ratio 1.6 % 09/20/20 05:50 Triglycerides 89 mg/dL (2-149) 09/20/20 05:50 Cholesterol 157 mg/dL (50-199) 09/20/20 05:50 LDL Cholesterol Direct 116 mg/dL (50-130) 09/20/20 05:50 HDL Cholesterol 32 mg/dL (40-59) L 09/20/20 05:50 Cholesterol/HDL Ratio 4.90 % 09/20/20 05:50 TSH 0.597 mlU/mL (0.270-4.200) 09/20/20 05:50 Last Vital Signs Temp 98.4 F 09/25/20 08:00 Pulse 74 09/25/20 08:00 Resp 18 09/25/20 08:00 BP 120/73 09/25/20 08:00 Pulse Ox 99 09/25/20 08:00
--- NOTE | 2020-09-25 08:45 | Discharge Summary ---
Providers - Providers Date of Admission: 09/19/20 17:14 Date of discharge: 09/25/20 Attending physician: KENN CONTRERAS MD 09/19/20 13:11 Consult to Physician [CONS] Routine Comment: Consulting Provider: FRANCISCO BROOKS Physician Instructions: Reason For Exam: manage medical conditions Primary care physician: [employer] Hospitalization Reason for admission: Danger to self Condition: Good Hospital course: The patient was provided inpatient psychiatric treatment with safe and supportive environment, group/individual therapy, psychiatric medication, medication adjustment, adverse effect monitor, medical evaluation, medical treatment, social service assessment, social support meeting, placement ass essment and psycho-education. The patients mood, cognition, behavior, motivation, compliance to treatment and appreciation on family/social support are improved and stabilized. At the time of discharge, the patient had no suicidal ideas, no homicidal ideas, no aggressive thoughts, no endangering behavior and no debilitating adverse effects. The patient agareed on the treatment plan, understood the risk, benefit, alternative treatment, potential consequence of no treatment, and gave informed consent. Disposition: DC-01 TO HOME OR SELFCARE Allergies/Adverse Reactions: Allergies No Known Allergies Allergy (Verified 09/18/20 12:40) Vital Signs: Last Vital Signs Temp 98.4 F 09/25/20 08:00 Pulse 74 09/25/20 08:00 Resp 18 09/25/20 08:00 BP 120/73 09/25/20 08:00 Pulse Ox 99 09/25/20 08:00 Last Lab: Laboratory Last Values WBC 5.1 K/mm3 (4.5-11.0) 09/20/20 05:50 RBC 5.13 M/mm3 (3.65-5.03) H 09/20/20 05:50 Hgb 14.6 gm/dl (11.8-15.2) 09/20/20 05:50 Hct 44.3 % (35.5-45.6) 09/20/20 05:50 MCV 86 fl (84-94) 09/20/20 05:50 MCH 29 pg (28-32) 09/20/20 05:50 MCHC 33 % (32-34) 09/20/20 05:50 RDW 13.4 % (13.2-15.2) 09/20/20 05:50 Plt Count 136 K/mm3 (140-440) L 09/20/20 05:50 Lymph % (Auto) 37.5 % (13.4-35.0) H 09/20/20 05:50 [place] % (Auto) 13.4 % (0.0-7.3) H 09/20/20 05:50 Eos % (Auto) 4.6 % (0.0-4.3) H 09/20/20 05:50 Baso % (Auto) 0.8 % (0.0-1.8) 09/20/20 05:50 Lymph # (Auto) 1.9 K/mm3 (1.2-5.4) 09/20/20 05:50 [place] # (Auto) 0.7 K/mm3 (0.0-0.8) 09/20/20 05:50 Eos # (Auto) 0.2 K/mm3 (0.0-0.4) 09/20/20 05:50 Baso # (Auto) 0.0 K/mm3 (0.0-0.1) 09/20/20 05:50 Seg Neutrophils % 43.7 % (40.0-70.0) 09/20/20 05:50 Seg Neutrophils # 2.2 K/mm3 (1.8-7.7) 09/20/20 05:50 Sodium 141 mmol/L (137-145) 09/20/20 05:50 Potassium 3.9 mmol/L (3.6-5.0) 09/20/20 05:50 Chloride 103.5 mmol/L (98-107) 09/20/20 05:50 Carbon Dioxide 31 mmol/L (22-30) H D 09/20/20 05:50 Anion Gap 10 mmol/L 09/20/20 05:50 BUN 14 mg/dL (9-20) 09/20/20 05:50 Creatinine 1.1 mg/dL (0.8-1.3) 09/20/20 05:50 Estimated GFR > 60 ml/min 09/20/20 05:50 BUN/Creatinine Ratio 13 % 09/20/20 05:50 Glucose 104 mg/dL (75-100) H 09/20/20 05:50 Hemoglobin A1c 5.3 % (4-6) 09/20/20 05:50 Calcium 9.2 mg/dL (8.4-10.2) 09/20/20 05:50 Total Bilirubin 0.60 mg/dL (0.1-1.2) 09/20/20 05:50 AST 15 units/L (5-40) 09/20/20 05:50 ALT 11 units/L (7-56) 09/20/20 05:50 Alkaline Phosphatase 66 units/L (35-129) 09/20/20 05:50 Total Protein 6.4 g/dL (6.3-8.2) 09/20/20 05:50 Albumin 3.9 g/dL (3.9-5) 09/20/20 05:50 Albumin/Globulin Ratio 1.6 % 09/20/20 05:50 Triglycerides 89 mg/dL (2-149) 09/20/20 05:50 Cholesterol 157 mg/dL (50-199) 09/20/20 05:50 LDL Cholesterol Direct 116 mg/dL (50-130) 09/20/20 05:50 HDL Cholesterol 32 mg/dL (40-59) L 09/20/20 05:50 Cholesterol/HDL Ratio 4.90 % 09/20/20 05:50 TSH 0.597 mlU/mL (0.270-4.200) 09/20/20 05:50 Core Measure Documentation - Palliative Care Palliative Care/ Comfort Measures: Not Applicable - Core Measures Any of the following diagnoses?: none Exam - Constitutional Vitals: Temp Pulse Resp BP Pulse Ox 98.4 F 74 18 120/73 99 09/25/20 08:00 09/25/20 08:00 09/25/20 08:00 09/25/20 08:00 09/25/20 08:00 General appearance: Present: no acute distress - EENT Eyes: Present: PERRL, EOM intact ENT: hearing intact, clear oral mucosa - Neck Neck: Present: supple, normal ROM - Respiratory Respiratory effort: normal - Abdominal Male genitourinary: Present: deferred - Integumentary Integumentary: Present: clear, warm, dry Plan Activity: no restrictions Care Plan Goals: Goals: Maintain good and stable mental health. Plan of Treatment: The patient should be compliant with medications, not to use drugs and not to drink alcohol. The patient understands that if suicidal ideas, homicidal ideas, or any endangering thoughts arise, the patient should immediately seek for emergent assistance including but not limited to crisis hot line and emergency room. Follow up with outpatient Psychiatrist and PCP within 7 - 14 days of discharge. Follow up with: PRIMARY CARE,MD [Primary Care Provider] - 7 Days Prescriptions: FLUoxetine [PROzac] 30 mg PO QDAY #30 tablet QUEtiapine [SEROquel] 300 mg PO BID #60 tablet
[2020-09-25] MEDS: FLUoxetine 10 MG TAB PO SCH (09:55)
[2020-09-25] MEDS: PANTOPRAZOLE 20 MG TAB PO SCH (09:56)
[2020-09-25] MEDS: QUEtiapine 100 MG TAB PO SCH (09:56)
== END 2020-09-25 16:00 | disposition home or self-care (01) | DRG 881 ==
LOC: 3A 11:40 → UNDOADMIN 11:40 → 5A 17:14
PROVIDERS: ADMIT Psychiatry & Neurology Psychiatry; ATTEND Psychiatry & Neurology Psychiatry
DX: F32.9 Major depressive disorder, single episode, unspecified (principal); F14.288 Cocaine dependence with other cocaine-induced disorder; I10 Essential (primary) hypertension; F15.10 Other stimulant abuse, uncomplicated; K21.9 Gastro-esophageal reflux disease without esophagitis; Z82.49 Family history of ischemic heart disease and other diseases of the circulatory system; Z83.3 Family history of diabetes mellitus; Z91.5 Personal history of self-harm; Z71.51 Drug abuse counseling and surveillance of drug abuser
CPT/HCPCS: 36415; 80048; 80053; 80061; 80307; 80320; 81001; 83036; 84443; 85025; G0378; G0480; Q0177; U0003

== ENCOUNTER 2021-06-16 15:35 | Inpatient (IN) | payer MEDICARE ==
[2021-06-16] MEDS ORDERED: traZODone 50 MG TAB PO PRN (16:50)
[2021-06-17] MEDS: QUEtiapine 25 MG TAB PO SCH ×3 (01:19→21:44)
--- NOTE | 2021-06-17 07:25 | History and Physical Report ---
GP History & Physical - History of Present Illness Date of admission: 06/16/21 Date of Examination: 06/17/21 Reason for Admission: Danger to self Chief Complaint: suicidal ideattion History of Present Illness: The Patient was seen in the ED:Jer Coker is a 55 year old male with history of Schizophrenia, Polysubstance use disorder, depression. In my interview with the patient, he reports non compliant with psychotropic medications for about 2 weeks now. He endorses suicidal ideation with a plan to hang himself. The patient reports having auditory hallucinations stating " voices saying to kill myself." He denies having homicidal ideation and denies visual hallucinations. The patient was seen this morning, he is angry, and verbally aggressive. PAST PSYCHIATRIC HISTORY Diagnoses: Schizophrenia, Polysubstance use disorder, depression Suicide attempts or Self-harm behavior: Yes- Prior psychiatric hospitalizations: Yes Substance Abuse history: crack Previous psychiatric medications tried: Seroquel Prozac Outpatient treatment: Denied SOCIAL HISTORY Marital Status: Single Living Arrangements: Lives with brother Employment Status: unemployed Access to guns/weapons: Denied Education: 12th grade History of Abuse: Denied Legal History: None reported REVIEW OF SYSTEMS Constitutional: Negative for weight loss ENT: Negative for stridor Respiratory: Negative for cough or hemoptysis All other systems reviewed and are negative MENTAL STATUS EXAMINATION General Appearance and Behavior: Age appropriate, dressed appropriately, calm and uncooperative Cooperation: noncooperative Psychomotor Behavior: psychomotor normal Mood: Depressed Affect and affective range: congruent with stated mood Thought Process: goal oriented Thought Content:suicidal Speech: Normal volume, Regular rate and rhythm, Intellectual Functioning: Average Suicidal Ideation:Yes Homicidal Ideation: denies Hallucinations:Yes, auditory Delusions: None elicited Impulse Control: Unimpaired Insight and Judgment: limited insight and poor judgment, Memory: Normal Attention: divided Orientation: Alert, oriented Assessment and Plan (1) Schizophrenia-F20.9 (2) Treatment Plan Patient admitted for inpatient psychiatric evaluation, medication adjustment and close monitoring The patient's behavior, mood, sleep and appetite will be closely monitored. Patient enrolled in individual and group therapeutic sessions and encouraged to attend. Patient provided with a safe and structured environment. Patient's physical health needs will be addressed by the Hospitalist. Hospitalist Consulted Labs including CBC, CMP, Lipid profile and Hemoglobin A1C levels ordered for baseline reference Social Assessment will be completed and the Care Team Assistant will work with patient and family to ensure a suitable and safe disposition Medication adjustment will be made as clinically indicated Restarted home meds Usual Wellness Muslim/Preservation: - Start Trazodone 50 mg po QHS & 50 mg po QHS PRN between 10 PM & 2 AM for insomnia - Start Melatonin 5 mg po QHS to promote circadian rhythm The patient agreed on the treatment plan, understood the risk, benefit, alternative treatment, potential consequence of no treatment, and gave informed consent. Estimated days: 7 Post hospital care: primary care provider, psychiatric provider Case staffed with Dr. Chu Legal Status: Voluntary Reaction to Hospitalization: Accepting Medications and Allergies Allergies Allergy/AdvReac Type Severity Reaction Status Date / Time haloperidol [From Haldol] AdvReac Unknown Verified 06/15/21 13:44 Home Medications Medication Instructions Recorded Confirmed Last Taken Type raNITIdine HCl [Zantac] 150 mg PO AC 05/02/16 06/16/21 Unknown History DULoxetine [Cymbalta] 90 mg PO DAILY #90 capsule 01/26/19 06/17/21 Unknown Rx QUEtiapine [SEROquel] 100 mg PO TID #90 tablet 01/26/19 06/16/21 1 Day Ago Rx ~03/18/19 buPROPion XL [Wellbutrin XL] 150 mg PO QDAY #30 tablet 01/26/19 06/16/21 Unknown Rx hydrOXYzine PAMOATE [Vistaril] 50 mg PO Q6H PRN #60 capsule 01/26/19 06/16/21 Unknown Rx traZODone [Desyrel] 50 mg PO QHS PRN #30 tablet 01/26/19 06/16/21 Unknown Rx FLUoxetine HCL [PROzac] 40 mg PO QDAY 03/19/19 06/16/21 1 Day Ago History ~03/18/19 FLUoxetine [PROzac] 30 mg PO QDAY #30 tablet 09/25/20 06/16/21 Unknown Rx QUEtiapine [SEROquel] 300 mg PO BID #60 tablet 09/25/20 06/16/21 Unknown Rx Active Meds: Active Medications Bupropion HCl (Bupropion Xl 150 Mg Tab) 150 mg PO QDAY DENIZ Famotidine (Famotidine 20 Mg Tab) 20 mg PO AC DENIZ Fluoxetine HCl (Fluoxetine 20 Mg Cap) 20 mg PO QDAY DENIZ Quetiapine Fumarate (Quetiapine 25 Mg Tab) 50 mg PO BID DENIZ Last Admin: 06/17/21 01:19 Dose: Not Given Documented by: Trazodone HCl (Trazodone 50 Mg Tab) 50 mg PO QHS PRN PRN Reason: Insomnia Results - Results Labs/Vitals: Laboratory Last Values POC Glucose 113 mg/dL (70-105) H 06/17/21 00:39 Last Vital Signs Temp 97.7 F 06/17/21 01:17 Pulse 58 L 06/17/21 01:17 Resp 18 06/17/21 01:17 BP 118/74 06/17/21 01:17 Pulse Ox 97 06/17/21 01:17 Physical Examination - Constitutional Vitals: Vital Signs Temp Pulse Resp BP Pulse Ox 97.7 F 58 L 18 118/74 97 06/17/21 01:17 06/17/21 01:17 06/17/21 01:17 06/17/21 01:17 06/17/21 01:17 Temperature -Last 24 Hours Temperature 97.7 F Mental Status Exam - Vital signs Last Vital Signs Temp 97.7 F 06/17/21 01:17 Pulse 58 L 06/17/21 01:17 Resp 18 06/17/21 01:17 BP 118/74 06/17/21 01:17 Pulse Ox 97 06/17/21 01:17 Physician Certification - Certification Statement Physician Certification Statement: This is an acknowledgement statement that JER MELGAR is a 55 year old M who requires inpatient psychiatric admission for treatment which could reasonably be expected to improve the patient's condition for Estimated period of time patient will need to remain in the hospital: [ ] Plan for post-hospital care: [ ]
--- NOTE | 2021-06-17 14:44 | Consultation ---
History of Present Illness - Reason for Consult Consult date: 06/17/21 Medical management - History of Present Illness Patient is a 55-year-old male with past medical history of schizophrenia, polysubstance abuse (cocaine, heroin, and "popping pills"), depression, and GERD who presented for suicidal ideation with a plan to hang himself. The patient admits to having auditory hallucinations that tell him to harm himself but denies visual or tactile hallucinations. The patient admitted to previously being discharged from [facility] approximately 3 weeks ago; however, the patient is unable to explain why he was hospitalized. The patient can endorse being told that he "almost ". Medicine was consulted for medical management. Past History Past Medical History: GERD Past Surgical History: hernia repair (Right inguinal) Social history: single, lives with family (Brother), smoking, IV drug use Family history: no significant family history Medications and Allergies Allergies Allergy/AdvReac Type Severity Reaction Status Date / Time haloperidol [From Haldol] AdvReac Unknown Verified 06/15/21 13:44 Home Medications Medication Instructions Recorded Confirmed Last Taken Type raNITIdine HCl [Zantac] 150 mg PO AC 05/02/16 06/16/21 Unknown History DULoxetine [Cymbalta] 90 mg PO DAILY #90 capsule 01/26/19 06/17/21 Unknown Rx QUEtiapine [SEROquel] 100 mg PO TID #90 tablet 01/26/19 06/16/21 1 Day Ago Rx ~03/18/19 buPROPion XL [Wellbutrin XL] 150 mg PO QDAY #30 tablet 01/26/19 06/16/21 Unknown Rx hydrOXYzine PAMOATE [Vistaril] 50 mg PO Q6H PRN #60 capsule 01/26/19 06/16/21 Unknown Rx traZODone [Desyrel] 50 mg PO QHS PRN #30 tablet 01/26/19 06/16/21 Unknown Rx FLUoxetine HCL [PROzac] 40 mg PO QDAY 03/19/19 06/16/21 1 Day Ago History ~03/18/19 FLUoxetine [PROzac] 30 mg PO QDAY #30 tablet 09/25/20 06/16/21 Unknown Rx QUEtiapine [SEROquel] 300 mg PO BID #60 tablet 09/25/20 06/16/21 Unknown Rx Active Meds: Active Medications Bupropion HCl (Bupropion Xl 150 Mg Tab) 150 mg PO QDAY DENIZ Famotidine (Famotidine 20 Mg Tab) 20 mg PO AC DENIZ Fluoxetine HCl (Fluoxetine 20 Mg Cap) 20 mg PO QDAY DENIZ Quetiapine Fumarate (Quetiapine 25 Mg Tab) 50 mg PO BID DENIZ Last Admin: 06/17/21 01:19 Dose: Not Given Documented by: Trazodone HCl (Trazodone 50 Mg Tab) 50 mg PO QHS PRN PRN Reason: Insomnia Review of Systems All systems: negative Exam - Constitutional Vitals: Temp Pulse Resp BP Pulse Ox 97.7 F 58 L 18 118/74 97 06/17/21 01:17 06/17/21 01:17 06/17/21 01:17 06/17/21 01:17 06/17/21 01:17 General appearance: Present: no acute distress, well-nourished - EENT Eyes: Present: PERRL, EOM intact ENT: hearing intact, clear oral mucosa, dentition normal - Neck Neck: Present: supple, normal ROM - Respiratory Respiratory effort: normal - Cardiovascular Rhythm: regular Heart Sounds: Present: S1 & S2 - Extremities Extremities: no ischemia, pulses intact, pulses symmetrical, No edema, normal temperature, normal color Peripheral Pulses: within normal limits - Abdominal General gastrointestinal: Present: soft, non-tender, non-distended, normal bowel sounds Male genitourinary: Present: deferred - Rectal Rectal Exam: deferred - Integumentary Integumentary: Present: clear, warm, dry - Musculoskeletal Musculoskeletal: strength equal bilaterally - Psychiatric Psychiatric: appropriate mood/affect, intact judgment & insight, memory intact, cooperative - Neurologic Neurologic: CNII-XII intact, moves all extremities - Allied Health Allied health notes reviewed: nursing Results - Labs Labs: Abnormal lab results 06/17/21 Range/Units 00:39 POC Glucose 113 H (70-105) mg/dL Assessment and Plan The patient is a 55-year-old male with past medical history of schizophrenia, polysubstance abuse disorder, depression, and GERD who was admitted for suicidal ideation with a plan to hang himself. Medicine was consulted for medical management. #Schizophrenia #Depression #Suicidal ideation -Management per primary #GERD -Continue famotidine 20 mg daily #Tobacco dependence #Polysubstance abuse disorder #Counseling on smoking cessation #Counseling on polysubstance abuse cessation -Counseled patient on the importance of cessation of tobacco and illegal substances. Patient expressed understanding. -Time: +20 minutes Thank you for this interesting consult. Will continue to follow.
[2021-06-17 15:30] LABS: Hepatitis C Virus Antibody Non-Reactive (NonReactive)
[2021-06-17 16:10] LABS: Hepatitis B Surface Antigen Nonreactive (Negative)
[2021-06-17] MEDS: FAMOTIDINE 20 MG TAB PO SCH (18:28)
[2021-06-17] MEDS: FLUoxetine 20 MG CAP PO SCH (18:28)
[2021-06-17] MEDS: buPROPion XL 150 MG TAB PO SCH (18:28)
[2021-06-18] MEDS: FAMOTIDINE 20 MG TAB PO SCH ×3 (08:32→21:29)
--- NOTE | 2021-06-18 09:10 | Progress Note ---
Subjective Date of service: 06/18/21 Subjective Comment: The patient was seen resting in bed. He reports not doing well. He continues to endorse suicidal ideation and auditory hallucination " voices telling me to kill myself." REVIEW OF SYSTEMS Constitutional: Negative for weight loss ENT: Negative for stridor Respiratory: Negative for cough or hemoptysis All other systems reviewed and are negative MENTAL STATUS EXAMINATION General Appearance and Behavior: Age appropriate, dressed appropriately, calm and uncooperative Cooperation: noncooperative Psychomotor Behavior: psychomotor normal Mood: Depressed Affect and affective range: congruent with stated mood Thought Process: goal oriented Thought Content:suicidal Speech: Normal volume, Regular rate and rhythm, Intellectual Functioning: Average Suicidal Ideation:Yes Homicidal Ideation: denies Hallucinations:Yes, auditory Delusions: None elicited Impulse Control: Unimpaired Insight and Judgment: limited insight and poor judgment, Memory: Normal Attention: divided Orientation: Alert, oriented Assessment and Plan (1) Schizophrenia-F20.9 (2) Treatment Plan Patient admitted for inpatient psychiatric evaluation, medication adjustment and close monitoring The patient's behavior, mood, sleep and appetite will be closely monitored. Patient enrolled in individual and group therapeutic sessions and encouraged to attend. Patient provided with a safe and structured environment. Patient's physical health needs will be addressed by the Hospitalist. Hospitalist Consulted Labs including CBC, CMP, Lipid profile and Hemoglobin A1C levels ordered for baseline reference Social Assessment will be completed and the Information Director will work with patient and family to ensure a suitable and safe disposition Medication adjustment will be made as clinically indicated Start Seroquel 50mg po daily Start Seroquel 100mg po QHs Start Depakote Dr 250mg po BID Usual Wellness Jewish/Preservation: - Start Trazodone 50 mg po QHS & 50 mg po QHS PRN between 10 PM & 2 AM for insomnia - Start Melatonin 5 mg po QHS to promote circadian rhythm The patient agreed on the treatment plan, understood the risk, benefit, alternative treatment, potential consequence of no treatment, and gave informed consent. Estimated days: 6 Post hospital care: primary care provider, psychiatric provider Case staffed with Dr. Chu Legal Status: Voluntary Reaction to Hospitalization: Accepting Medications and Allergies Medications and Allergies Allergies Allergy/AdvReac Type Severity Reaction Status Date / Time haloperidol [From Haldol] AdvReac Unknown Verified 06/15/21 13:44 Home Medications Medication Instructions Recorded Confirmed Last Taken Type raNITIdine HCl [Zantac] 150 mg PO AC 05/02/16 06/16/21 Unknown History DULoxetine [Cymbalta] 90 mg PO DAILY #90 capsule 01/26/19 06/17/21 Unknown Rx QUEtiapine [SEROquel] 100 mg PO TID #90 tablet 01/26/19 06/16/21 1 Day Ago Rx ~03/18/19 buPROPion XL [Wellbutrin XL] 150 mg PO QDAY #30 tablet 01/26/19 06/16/21 Unknown Rx hydrOXYzine PAMOATE [Vistaril] 50 mg PO Q6H PRN #60 capsule 01/26/19 06/16/21 Unknown Rx traZODone [Desyrel] 50 mg PO QHS PRN #30 tablet 01/26/19 06/16/21 Unknown Rx FLUoxetine HCL [PROzac] 40 mg PO QDAY 03/19/19 06/16/21 1 Day Ago History ~03/18/19 FLUoxetine [PROzac] 30 mg PO QDAY #30 tablet 09/25/20 06/16/21 Unknown Rx QUEtiapine [SEROquel] 300 mg PO BID #60 tablet 09/25/20 06/16/21 Unknown Rx Active Meds: Active Medications Bupropion HCl (Bupropion Xl 150 Mg Tab) 150 mg PO QDAY [facility] Last Admin: 06/17/21 18:28 Dose: Not Given Documented by: Famotidine (Famotidine 20 Mg Tab) 20 mg PO AC [facility] Last Admin: 06/18/21 08:32 Dose: 20 mg Documented by: Fluoxetine HCl (Fluoxetine 20 Mg Cap) 20 mg PO QDAY [facility] Last Admin: 06/17/21 18:28 Dose: Not Given Documented by: Quetiapine Fumarate (Quetiapine 25 Mg Tab) 50 mg PO BID [facility] Last Admin: 06/17/21 21:44 Dose: 50 mg Documented by: Trazodone HCl (Trazodone 50 Mg Tab) 50 mg PO QHS PRN PRN Reason: Insomnia Results - Results Labs/Vitals: Laboratory Last Values POC Glucose 113 mg/dL (70-105) H 06/17/21 00:39 TSH 0.240 mlU/mL (0.270-4.200) L 06/15/21 14:58 Hepatitis A IgM Ab Reactive (NonReactive) A 06/15/21 14:58 Hep Bs Antigen Nonreactive (Negative) 06/15/21 14:58 Hep B Core IgM Ab Non-reactive (NonReactive) 06/15/21 14:58 Hepatitis C Antibody Non-reactive (NonReactive) 06/15/21 14:58 Last Vital Signs Temp 98.6 F 06/17/21 22:00 Pulse 57 L 06/17/21 22:00 Resp 18 06/17/21 22:00 BP 115/69 06/17/21 22:00 Pulse Ox 98 06/17/21 22:00
[2021-06-18] MEDS: DIVALPROEX DR 250 MG TAB PO SCH ×2 (09:54→21:29)
[2021-06-18] MEDS: FLUoxetine 20 MG CAP PO SCH (09:54)
[2021-06-18] MEDS: QUEtiapine 25 MG TAB PO SCH (09:55)
[2021-06-18] MEDS: buPROPion XL 150 MG TAB PO SCH (09:55)
--- NOTE | 2021-06-18 16:27 | Progress Note ---
Assessment and Plan Assessment and plan: The patient is a 55-year-old male with past medical history of schizophrenia, polysubstance abuse disorder, depression, and GERD who was admitted for suicidal ideation with a plan to hang himself. Medicine was consulted for medical management. #Schizophrenia #Depression #Suicidal ideation -Management per primary #Acute hepatitis A infection -Reactive hepatitis A IgM antibody -Continue to monitor; no intervention at this time. -Counseled patient on hepatitis A transmission. Patient expressed understanding #GERD -Continue famotidine 20 mg daily #Tobacco dependence #Polysubstance abuse disorder #Counseling on smoking cessation #Counseling on polysubstance abuse cessation -Counseled patient on the importance of cessation of tobacco and illegal substances. Patient expressed understanding. -Time: +20 minutes Will continue to follow. Disposition Plan: Continue medical management Total Time Spent with Patient (Minutes): 30 History Interval history: No acute events over night. The patient denies fevers, chills, nausea, vomiting, abdominal pain, chest pain/pressure, shortness of breath, urinary symptoms, weakness, or confusion. Hospitalist Physical - Constitutional Vitals: Temp Pulse Resp BP Pulse Ox 98.5 F 64 18 113/81 99 06/18/21 08:11 06/18/21 08:11 06/18/21 08:11 06/18/21 08:11 06/18/21 08:11 General appearance: Present: no acute distress, well-nourished - EENT Eyes: Present: PERRL, EOM intact ENT: hearing intact, clear oral mucosa, dentition normal - Neck Neck: Present: supple, normal ROM - Respiratory Respiratory effort: normal - Cardiovascular Rhythm: regular Heart Sounds: Present: S1 & S2 - Extremities Extremities: no ischemia, pulses intact, pulses symmetrical, No edema, normal temperature, normal color Peripheral Pulses: within normal limits - Abdominal General gastrointestinal: soft, non-tender, non-distended, normal bowel sounds - Integumentary Integumentary: Present: clear, warm, dry - Psychiatric Psychiatric: appropriate mood/affect, intact judgment & insight, memory intact, cooperative - Neurologic Neurologic: CNII-XII intact, moves all extremities - Allied Health Allied health notes reviewed: nursing Results - Labs Labs: Laboratory Last Values POC Glucose 113 mg/dL (70-105) H 06/17/21 00:39 TSH 0.240 mlU/mL (0.270-4.200) L 06/15/21 14:58 Hepatitis A IgM Ab Reactive (NonReactive) A 06/15/21 14:58 Hep Bs Antigen Nonreactive (Negative) 06/15/21 14:58 Hep B Core IgM Ab Non-reactive (NonReactive) 06/15/21 14:58 Hepatitis C Antibody Non-reactive (NonReactive) 06/15/21 14:58 [place]/IV: Voiding Method Toilet Active Medications - Current Medications Current Medications: Generic Name Dose Route Start Last Admin Trade Name Freq PRN Reason Stop Dose Admin Bupropion HCl 150 mg 06/17/21 10:00 06/18/21 09:55 Bupropion Xl 150 Mg Tab PO 150 mg QDAY DENIZ Administration Divalproex Sodium 250 mg 06/18/21 10:00 06/18/21 09:[address] 250 Mg Tab PO 250 mg BID DENIZ Administration Famotidine 20 mg 06/17/21 07:30 06/18/21 12:36 Famotidine 20 Mg Tab PO 20 mg AC DENIZ Administration Fluoxetine HCl 20 mg 06/17/21 10:00 06/18/21 09:54 Fluoxetine 20 Mg Cap PO 20 mg QDAY DENIZ Administration Quetiapine Fumarate 100 mg 06/18/21 22:00 Quetiapine 100 Mg Tab PO QHS DENIZ Quetiapine Fumarate 50 mg 06/18/21 10:00 06/18/21 09:55 Quetiapine 25 Mg Tab PO 50 mg DAILY DENIZ Administration Trazodone HCl 50 mg 06/16/21 16:50 Trazodone 50 Mg Tab PO QHS PRN Insomnia
[2021-06-18 18:26] LABS: Basophils % (Auto) 0.6 % (0.0-1.8); Eosinophils # (Auto) 0.1 K/mm3 (0.0-0.4); Eosinophils % (Auto) 2.1 % (0.0-4.3); Hemoglobin 12.5 gm/dl (11.8-15.2); Lymphocytes # (Auto) 1.5 K/mm3 (1.2-5.4); Lymphocytes % (Auto) 23.3 % (13.4-35.0); Monocytes # (Auto) 0.6 K/mm3 (0.0-0.8); Monocytes % (Auto) 9.4 % (0.0-7.3)
[2021-06-18 18:33] LABS: Hematocrit 37.8 % (35.5-45.6); Mean Corpuscular HGB Conc 33 % (32-34); Mean Corpuscular Volume 88 fl (84-94); Platelet Count 175 K/mm3 (140-440); Red Blood Count 4.29 M/mm3 (3.65-5.03); Red Cell Distribution Width 13.7 % (13.2-15.2)
[2021-06-18 18:51] LABS: BUN/Creatinine Ratio 14; Blood Urea Nitrogen 13 mg/dL (9-20); Chol/HDL Ratio 4.59 %; HDL Cholesterol 37 mg/dL (40-59); Hemolysis Index 7; LDL Cholesterol,Direct 125 mg/dL (50-130)
[2021-06-18] MEDS: QUEtiapine 100 MG TAB PO SCH (21:29)
--- NOTE | 2021-06-19 08:03 | Progress Note ---
Subjective Date of service: 06/19/21 Subjective Comment: 06/18/21:The patient was seen resting in bed. He reports not doing well. He continues to endorse suicidal ideation and auditory hallucination " voices telling me to kill myself." 06/19/21: The patient was seen resting in bed. He reports still being depressed but states mood as " pretty good." He denies suicidal ideation but continues to have auditory hallucinations. REVIEW OF SYSTEMS Constitutional: Negative for weight loss ENT: Negative for stridor Respiratory: Negative for cough or hemoptysis All other systems reviewed and are negative MENTAL STATUS EXAMINATION General Appearance and Behavior: Age appropriate, dressed appropriately, calm and uncooperative Cooperation: noncooperative Psychomotor Behavior: psychomotor normal Mood: "pretty good" Affect and affective range: congruent with stated mood Thought Process: goal oriented Thought Content:Not suicidal Speech: Normal volume, Regular rate and rhythm, Intellectual Functioning: Average Suicidal Ideation:Denies Homicidal Ideation: Denies Hallucinations:Yes, auditory Delusions: None elicited Impulse Control: Unimpaired Insight and Judgment: limited insight and poor judgment, Memory: Normal Attention: divided Orientation: Alert, oriented Assessment and Plan (1) Schizophrenia-F20.9 (2) Treatment Plan Patient admitted for inpatient psychiatric evaluation, medication adjustment and close monitoring The patient's behavior, mood, sleep and appetite will be closely monitored. Patient enrolled in individual and group therapeutic sessions and encouraged to attend. Patient provided with a safe and structured environment. Patient's physical health needs will be addressed by the Hospitalist. Hospitalist Consulted Labs including CBC, CMP, Lipid profile and Hemoglobin A1C levels ordered for baseline reference Social Assessment will be completed and the Supervisor [employer] will work with patient and family to ensure a suitable and safe disposition Medication adjustment will be made as clinically indicated Start Seroquel 50mg po daily Start Seroquel 100mg po QHs Start Depakote Dr 250mg po BID Usual Wellness Protestant/Preservation: - Start Trazodone 50 mg po QHS & 50 mg po QHS PRN between 10 PM & 2 AM for insomnia - Start Melatonin 5 mg po QHS to promote circadian rhythm The patient agreed on the treatment plan, understood the risk, benefit, alternative treatment, potential consequence of no treatment, and gave informed consent. Estimated days: 6 Post hospital care: primary care provider, psychiatric provider Case staffed with Dr. Vlad Legal Status: Voluntary Reaction to Hospitalization: Accepting Medications and Allergies Medications and Allergies Allergies Allergy/AdvReac Type Severity Reaction Status Date / Time haloperidol [From Haldol] AdvReac Unknown Verified 06/15/21 13:44 Home Medications Medication Instructions Recorded Confirmed Last Taken Type raNITIdine HCl [Zantac] 150 mg PO AC 05/02/16 06/16/21 Unknown History DULoxetine [Cymbalta] 90 mg PO DAILY #90 capsule 01/26/19 06/17/21 Unknown Rx QUEtiapine [SEROquel] 100 mg PO TID #90 tablet 01/26/19 06/16/21 1 Day Ago Rx ~03/18/19 buPROPion XL [Wellbutrin XL] 150 mg PO QDAY #30 tablet 01/26/19 06/16/21 Unknown Rx hydrOXYzine PAMOATE [Vistaril] 50 mg PO Q6H PRN #60 capsule 01/26/19 06/16/21 Unknown Rx traZODone [Desyrel] 50 mg PO QHS PRN #30 tablet 01/26/19 06/16/21 Unknown Rx FLUoxetine HCL [PROzac] 40 mg PO QDAY 03/19/19 06/16/21 1 Day Ago History ~03/18/19 FLUoxetine [PROzac] 30 mg PO QDAY #30 tablet 09/25/20 06/16/21 Unknown Rx QUEtiapine [SEROquel] 300 mg PO BID #60 tablet 09/25/20 06/16/21 Unknown Rx Active Meds: Active Medications Bupropion HCl (Bupropion Xl 150 Mg Tab) 150 mg PO QDAY [facility] Last Admin: 06/18/21 09:55 Dose: 150 mg Documented by: Divalproex Sodium (Divalproex Dr 250 Mg Tab) 250 mg PO BID [facility] Last Admin: 06/18/21 21:29 Dose: 250 mg Documented by: Famotidine (Famotidine 20 Mg Tab) 20 mg PO AC [facility] Last Admin: 06/18/21 21:29 Dose: Not Given Documented by: Fluoxetine HCl (Fluoxetine 20 Mg Cap) 20 mg PO QDAY [facility] Last Admin: 06/18/21 09:54 Dose: 20 mg Documented by: Quetiapine Fumarate (Quetiapine 100 Mg Tab) 100 mg PO QHS [facility] Last Admin: 06/18/21 21:29 Dose: 100 mg Documented by: Quetiapine Fumarate (Quetiapine 25 Mg Tab) 50 mg PO DAILY [facility] Last Admin: 06/18/21 09:55 Dose: 50 mg Documented by: Trazodone HCl (Trazodone 50 Mg Tab) 50 mg PO QHS PRN PRN Reason: Insomnia Results - Results Labs/Vitals: Laboratory Last Values WBC 6.5 K/mm3 (4.5-11.0) 06/18/21 17:57 RBC 4.29 M/mm3 (3.65-5.03) 06/18/21 17:57 Hgb 12.5 gm/dl (11.8-15.2) 06/18/21 17:57 Hct 37.8 % (35.5-45.6) 06/18/21 17:57 MCV 88 fl (84-94) 06/18/21 17:57 MCH 29 pg (28-32) 06/18/21 17:57 MCHC 33 % (32-34) 06/18/21 17:57 RDW 13.7 % (13.2-15.2) 06/18/21 17:57 Plt Count 175 K/mm3 (140-440) 06/18/21 17:57 Lymph % (Auto) 23.3 % (13.4-35.0) 06/18/21 17:57 [place] % (Auto) 9.4 % (0.0-7.3) H 06/18/21 17:57 Eos % (Auto) 2.1 % (0.0-4.3) 06/18/21 17:57 Baso % (Auto) 0.6 % (0.0-1.8) 06/18/21 17:57 Lymph # (Auto) 1.5 K/mm3 (1.2-5.4) 06/18/21 17:57 [place] # (Auto) 0.6 K/mm3 (0.0-0.8) 06/18/21 17:57 Eos # (Auto) 0.1 K/mm3 (0.0-0.4) 06/18/21 17:57 Baso # (Auto) 0.0 K/mm3 (0.0-0.1) 06/18/21 17:57 Seg Neutrophils % 64.6 % (40.0-70.0) 06/18/21 17:57 Seg Neutrophils # 4.2 K/mm3 (1.8-7.7) 06/18/21 17:57 Sodium 138 mmol/L (137-145) 06/18/21 17:57 Potassium 3.8 mmol/L (3.6-5.0) 06/18/21 17:57 Chloride 104.1 mmol/L (98-107) 06/18/21 17:57 Carbon Dioxide 23 mmol/L (22-30) 06/18/21 17:57 Anion Gap 15 mmol/L 06/18/21 17:57 BUN 13 mg/dL (9-20) 06/18/21 17:57 Creatinine 0.9 mg/dL (0.8-1.3) 06/18/21 17:57 Estimated GFR > 60 ml/min 06/18/21 17:57 BUN/Creatinine Ratio 14 % 06/18/21 17:57 Glucose 77 mg/dL (75-100) 06/18/21 17:57 POC Glucose 113 mg/dL (70-105) H 06/17/21 00:39 Calcium 9.0 mg/dL (8.4-10.2) 06/18/21 17:57 Phosphorus 3.90 mg/dL (2.5-4.5) 06/18/21 17:57 Magnesium 1.80 mg/dL (1.7-2.3) 06/18/21 17:57 Triglycerides 121 mg/dL (2-149) 06/18/21 17:57 Cholesterol 170 mg/dL (50-199) 06/18/21 17:57 LDL Cholesterol Direct 125 mg/dL (50-130) 06/18/21 17:57 HDL Cholesterol 37 mg/dL (40-59) L 06/18/21 17:57 Cholesterol/HDL Ratio 4.59 % 06/18/21 17:57 TSH 0.554 mlU/mL (0.270-4.200) 06/18/21 17:57 Free T4 1.11 ng/dL (0.76-1.46) 06/18/21 17:57 Hepatitis A IgM Ab Reactive (NonReactive) A 06/15/21 14:58 Hep Bs Antigen Nonreactive (Negative) 06/15/21 14:58 Hep B Core IgM Ab Non-reactive (NonReactive) 06/15/21 14:58 Hepatitis C Antibody Non-reactive (NonReactive) 06/15/21 14:58 Last Vital Signs Temp 98.5 F 06/18/21 19:09 Pulse 67 06/18/21 19:09 Resp 18 06/18/21 19:09 BP 111/76 06/18/21 19:09 Pulse Ox 100 06/18/21 19:09
[2021-06-19] MEDS: buPROPion XL 150 MG TAB PO SCH (09:30)
[2021-06-19] MEDS: FLUoxetine 20 MG CAP PO SCH (09:30)
[2021-06-19] MEDS: FAMOTIDINE 20 MG TAB PO SCH ×3 (09:30→17:19)
[2021-06-19] MEDS: DIVALPROEX DR 250 MG TAB PO SCH ×2 (09:30→21:25)
[2021-06-19] MEDS: QUEtiapine 25 MG TAB PO SCH (09:30)
--- NOTE | 2021-06-19 12:03 | Progress Note ---
Assessment and Plan Assessment and plan: The patient is a 55-year-old male with past medical history of schizophrenia, polysubstance abuse disorder, depression, and GERD who was admitted for suicidal ideation with a plan to hang himself. Medicine was consulted for medical management. #Schizophrenia #Depression #Suicidal ideation -Management per primary #Acute hepatitis A infection -Reactive hepatitis A IgM antibody -Continue to monitor; no intervention at this time. -Counseled patient on hepatitis A transmission. Patient expressed understanding #GERD -Continue famotidine 20 mg daily #Tobacco dependence #Polysubstance abuse disorder #Counseling on smoking cessation #Counseling on polysubstance abuse cessation -Counseled patient on the importance of cessation of tobacco and illegal substances. Patient expressed understanding. -Time: +20 minutes Will be signing off today. Please do not hesitate to contact should any questions arise. Disposition Plan: Continue medical management Total Time Spent with Patient (Minutes): 25 History Interval history: No acute events over night. The patient denies fevers, chills, nausea, vomiting, abdominal pain, chest pain/pressure, shortness of breath, urinary symptoms, weakness, or confusion. Hospitalist Physical - Constitutional Vitals: Temp Pulse Resp BP Pulse Ox 97.9 F 57 L 18 112/67 99 06/19/21 09:06 06/19/21 09:06 06/19/21 09:06 06/19/21 09:06 06/19/21 09:06 General appearance: Present: no acute distress, well-nourished - EENT Eyes: Present: PERRL, EOM intact ENT: hearing intact, clear oral mucosa, dentition normal - Neck Neck: Present: supple, normal ROM - Respiratory Respiratory effort: normal - Cardiovascular Rhythm: regular Heart Sounds: Present: S1 & S2 - Extremities Extremities: no ischemia, pulses intact, pulses symmetrical, No edema, normal temperature, normal color Peripheral Pulses: within normal limits - Abdominal General gastrointestinal: soft, non-tender, non-distended, normal bowel sounds - Integumentary Integumentary: Present: clear, warm, dry - Psychiatric Psychiatric: appropriate mood/affect, intact judgment & insight, memory intact, cooperative - Neurologic Neurologic: CNII-XII intact, moves all extremities - Allied Health Allied health notes reviewed: nursing Results - Labs CBC & Chem 7: 06/18/21 17:57 06/18/21 17:57 Labs: Laboratory Last Values WBC 6.5 K/mm3 (4.5-11.0) 06/18/21 17:57 RBC 4.29 M/mm3 (3.65-5.03) 06/18/21 17:57 Hgb 12.5 gm/dl (11.8-15.2) 06/18/21 17:57 Hct 37.8 % (35.5-45.6) 06/18/21 17:57 MCV 88 fl (84-94) 06/18/21 17:57 MCH 29 pg (28-32) 06/18/21 17:57 MCHC 33 % (32-34) 06/18/21 17:57 RDW 13.7 % (13.2-15.2) 06/18/21 17:57 Plt Count 175 K/mm3 (140-440) 06/18/21 17:57 Lymph % (Auto) 23.3 % (13.4-35.0) 06/18/21 17:57 [place] % (Auto) 9.4 % (0.0-7.3) H 06/18/21 17:57 Eos % (Auto) 2.1 % (0.0-4.3) 06/18/21 17:57 Baso % (Auto) 0.6 % (0.0-1.8) 06/18/21 17:57 Lymph # (Auto) 1.5 K/mm3 (1.2-5.4) 06/18/21 17:57 [place] # (Auto) 0.6 K/mm3 (0.0-0.8) 06/18/21 17:57 Eos # (Auto) 0.1 K/mm3 (0.0-0.4) 06/18/21 17:57 Baso # (Auto) 0.0 K/mm3 (0.0-0.1) 06/18/21 17:57 Seg Neutrophils % 64.6 % (40.0-70.0) 06/18/21 17:57 Seg Neutrophils # 4.2 K/mm3 (1.8-7.7) 06/18/21 17:57 Sodium 138 mmol/L (137-145) 06/18/21 17:57 Potassium 3.8 mmol/L (3.6-5.0) 06/18/21 17:57 Chloride 104.1 mmol/L (98-107) 06/18/21 17:57 Carbon Dioxide 23 mmol/L (22-30) 06/18/21 17:57 Anion Gap 15 mmol/L 06/18/21 17:57 BUN 13 mg/dL (9-20) 06/18/21 17:57 Creatinine 0.9 mg/dL (0.8-1.3) 06/18/21 17:57 Estimated GFR > 60 ml/min 06/18/21 17:57 BUN/Creatinine Ratio 14 % 06/18/21 17:57 Glucose 77 mg/dL (75-100) 06/18/21 17:57 POC Glucose 113 mg/dL (70-105) H 06/17/21 00:39 Calcium 9.0 mg/dL (8.4-10.2) 06/18/21 17:57 Phosphorus 3.90 mg/dL (2.5-4.5) 06/18/21 17:57 Magnesium 1.80 mg/dL (1.7-2.3) 06/18/21 17:57 Triglycerides 121 mg/dL (2-149) 06/18/21 17:57 Cholesterol 170 mg/dL (50-199) 06/18/21 17:57 LDL Cholesterol Direct 125 mg/dL (50-130) 06/18/21 17:57 HDL Cholesterol 37 mg/dL (40-59) L 06/18/21 17:57 Cholesterol/HDL Ratio 4.59 % 06/18/21 17:57 TSH 0.554 mlU/mL (0.270-4.200) 06/18/21 17:57 Free T4 1.11 ng/dL (0.76-1.46) 06/18/21 17:57 Hepatitis A IgM Ab Reactive (NonReactive) A 06/15/21 14:58 Hep Bs Antigen Nonreactive (Negative) 06/15/21 14:58 Hep B Core IgM Ab Non-reactive (NonReactive) 06/15/21 14:58 Hepatitis C Antibody Non-reactive (NonReactive) 06/15/21 14:58 [place]/IV: Voiding Method Toilet Active Medications - Current Medications Current Medications: Generic Name Dose Route Start Last Admin Trade Name Freq PRN Reason Stop Dose Admin Bupropion HCl 150 mg 06/17/21 10:00 06/19/21 09:30 Bupropion Xl 150 Mg Tab PO 150 mg QDAY DENIZ Administration Divalproex Sodium 250 mg 06/18/21 10:00 06/19/21 09:[address] 250 Mg Tab PO 250 mg BID DENIZ Administration Famotidine 20 mg 06/17/21 07:30 06/19/21 09:30 Famotidine 20 Mg Tab PO 20 mg AC DENIZ Administration Fluoxetine HCl 20 mg 06/17/21 10:00 06/19/21 09:30 Fluoxetine 20 Mg Cap PO 20 mg QDAY DENIZ Administration Quetiapine Fumarate 100 mg 06/18/21 22:00 06/18/21 21:29 Quetiapine 100 Mg Tab PO 100 mg QHS DENIZ Administration Quetiapine Fumarate 50 mg 06/18/21 10:00 06/19/21 09:30 Quetiapine 25 Mg Tab PO 50 mg DAILY DENIZ Administration Trazodone HCl 50 mg 06/16/21 16:50 Trazodone 50 Mg Tab PO QHS PRN Insomnia
[2021-06-19] MEDS: QUEtiapine 100 MG TAB PO SCH (21:25)
[2021-06-20] MEDS: FAMOTIDINE 20 MG TAB PO SCH ×3 (08:19→16:57)
[2021-06-20] MEDS: QUEtiapine 25 MG TAB PO SCH (09:29)
[2021-06-20] MEDS: DIVALPROEX DR 250 MG TAB PO SCH ×2 (09:29→21:41)
[2021-06-20] MEDS: buPROPion XL 150 MG TAB PO SCH (09:30)
[2021-06-20] MEDS: FLUoxetine 20 MG CAP PO SCH (09:30)
--- NOTE | 2021-06-20 11:20 | Progress Note ---
Subjective Date of service: 06/20/21 Subjective Comment: The patient was seen today. He says he's not doing too good. He says he hasn't been sleeping. The patient states he's hearing voices that he can't make out. He denies SI/HI. REVIEW OF SYSTEMS Constitutional: Negative for weight loss ENT: Negative for stridor Respiratory: Negative for cough or hemoptysis All other systems reviewed and are negative MENTAL STATUS EXAMINATION General Appearance and Behavior: Age appropriate, dressed appropriately, calm and uncooperative Cooperation: noncooperative Psychomotor Behavior: psychomotor normal Mood: "pretty good" Affect and affective range: congruent with stated mood Thought Process: goal oriented Thought Content:Not suicidal Speech: Normal volume, Regular rate and rhythm, Intellectual Functioning: Average Suicidal Ideation:Denies Homicidal Ideation: Denies Hallucinations:Yes, auditory Delusions: None elicited Impulse Control: Unimpaired Insight and Judgment: limited insight and poor judgment, Memory: Normal Attention: divided Orientation: Alert, oriented Assessment and Plan (1) Schizophrenia-F20.9 Treatment Plan Patient admitted for inpatient psychiatric evaluation, medication adjustment and close monitoring The patient's behavior, mood, sleep and appetite will be closely monitored. Patient enrolled in individual and group therapeutic sessions and encouraged to attend. Patient provided with a safe and structured environment. Patient's physical health needs will be addressed by the Hospitalist. Hospitalist Consulted Labs including CBC, CMP, Lipid profile and Hemoglobin A1C levels ordered for baseline reference Social Assessment will be completed and the Radiologic Technologist Mammogram will work with patient and family to ensure a suitable and safe disposition Medication adjustment will be made as clinically indicated Increased Seroquel 100mg po BID Increased Trazodone 75mg po qhs Usual Wellness Quaker/Preservation: - Start Trazodone 50 mg po QHS & 50 mg po QHS PRN between 10 PM & 2 AM for insomnia - Start Melatonin 5 mg po QHS to promote circadian rhythm The patient agreed on the treatment plan, understood the risk, benefit, alternative treatment, potential consequence of no treatment, and gave informed consent. Estimated days: 6 Post hospital care: primary care provider, psychiatric provider Case staffed with Dr. Chu Medications and Allergies Allergies Allergy/AdvReac Type Severity Reaction Status Date / Time haloperidol [From Haldol] AdvReac Unknown Verified 06/15/21 13:44 Home Medications Medication Instructions Recorded Confirmed Last Taken Type raNITIdine HCl [Zantac] 150 mg PO AC 05/02/16 06/16/21 Unknown History DULoxetine [Cymbalta] 90 mg PO DAILY #90 capsule 01/26/19 06/17/21 Unknown Rx QUEtiapine [SEROquel] 100 mg PO TID #90 tablet 01/26/19 06/16/21 1 Day Ago Rx ~03/18/19 buPROPion XL [Wellbutrin XL] 150 mg PO QDAY #30 tablet 01/26/19 06/16/21 Unknown Rx hydrOXYzine PAMOATE [Vistaril] 50 mg PO Q6H PRN #60 capsule 01/26/19 06/16/21 Unknown Rx traZODone [Desyrel] 50 mg PO QHS PRN #30 tablet 01/26/19 06/16/21 Unknown Rx FLUoxetine HCL [PROzac] 40 mg PO QDAY 03/19/19 06/16/21 1 Day Ago History ~03/18/19 FLUoxetine [PROzac] 30 mg PO QDAY #30 tablet 09/25/20 06/16/21 Unknown Rx QUEtiapine [SEROquel] 300 mg PO BID #60 tablet 09/25/20 06/16/21 Unknown Rx Active Meds: Active Medications Bupropion HCl (Bupropion Xl 150 Mg Tab) 150 mg PO QDAY [facility] Last Admin: 06/20/21 09:30 Dose: 150 mg Documented by: Divalproex Sodium (Divalproex Dr 250 Mg Tab) 250 mg PO BID [facility] Last Admin: 06/20/21 09:29 Dose: 250 mg Documented by: Famotidine (Famotidine 20 Mg Tab) 20 mg PO AC [facility] Last Admin: 06/20/21 08:19 Dose: 20 mg Documented by: Fluoxetine HCl (Fluoxetine 20 Mg Cap) 20 mg PO QDAY [facility] Last Admin: 06/20/21 09:30 Dose: 20 mg Documented by: Quetiapine Fumarate (Quetiapine 100 Mg Tab) 100 mg PO QHS [facility] Last Admin: 06/19/21 21:25 Dose: 100 mg Documented by: Quetiapine Fumarate (Quetiapine 25 Mg Tab) 50 mg PO DAILY [facility] Last Admin: 06/20/21 09:29 Dose: 50 mg Documented by: Trazodone HCl (Trazodone 50 Mg Tab) 50 mg PO QHS PRN PRN Reason: Insomnia Results - Results Labs/Vitals: Laboratory Last Values WBC 6.5 K/mm3 (4.5-11.0) 06/18/21 17:57 RBC 4.29 M/mm3 (3.65-5.03) 06/18/21 17:57 Hgb 12.5 gm/dl (11.8-15.2) 06/18/21 17:57 Hct 37.8 % (35.5-45.6) 06/18/21 17:57 MCV 88 fl (84-94) 06/18/21 17:57 MCH 29 pg (28-32) 06/18/21 17:57 MCHC 33 % (32-34) 06/18/21 17:57 RDW 13.7 % (13.2-15.2) 06/18/21 17:57 Plt Count 175 K/mm3 (140-440) 06/18/21 17:57 Lymph % (Auto) 23.3 % (13.4-35.0) 06/18/21 17:57 [place] % (Auto) 9.4 % (0.0-7.3) H 06/18/21 17:57 Eos % (Auto) 2.1 % (0.0-4.3) 06/18/21 17:57 Baso % (Auto) 0.6 % (0.0-1.8) 06/18/21 17:57 Lymph # (Auto) 1.5 K/mm3 (1.2-5.4) 06/18/21 17:57 [place] # (Auto) 0.6 K/mm3 (0.0-0.8) 06/18/21 17:57 Eos # (Auto) 0.1 K/mm3 (0.0-0.4) 06/18/21 17:57 Baso # (Auto) 0.0 K/mm3 (0.0-0.1) 06/18/21 17:57 Seg Neutrophils % 64.6 % (40.0-70.0) 06/18/21 17:57 Seg Neutrophils # 4.2 K/mm3 (1.8-7.7) 06/18/21 17:57 Sodium 138 mmol/L (137-145) 06/18/21 17:57 Potassium 3.8 mmol/L (3.6-5.0) 06/18/21 17:57 Chloride 104.1 mmol/L (98-107) 06/18/21 17:57 Carbon Dioxide 23 mmol/L (22-30) 06/18/21 17:57 Anion Gap 15 mmol/L 06/18/21 17:57 BUN 13 mg/dL (9-20) 06/18/21 17:57 Creatinine 0.9 mg/dL (0.8-1.3) 06/18/21 17:57 Estimated GFR > 60 ml/min 06/18/21 17:57 BUN/Creatinine Ratio 14 % 06/18/21 17:57 Glucose 77 mg/dL (75-100) 06/18/21 17:57 POC Glucose 113 mg/dL (70-105) H 06/17/21 00:39 Calcium 9.0 mg/dL (8.4-10.2) 06/18/21 17:57 Phosphorus 3.90 mg/dL (2.5-4.5) 06/18/21 17:57 Magnesium 1.80 mg/dL (1.7-2.3) 06/18/21 17:57 Triglycerides 121 mg/dL (2-149) 06/18/21 17:57 Cholesterol 170 mg/dL (50-199) 06/18/21 17:57 LDL Cholesterol Direct 125 mg/dL (50-130) 06/18/21 17:57 HDL Cholesterol 37 mg/dL (40-59) L 06/18/21 17:57 Cholesterol/HDL Ratio 4.59 % 06/18/21 17:57 TSH 0.554 mlU/mL (0.270-4.200) 06/18/21 17:57 Free T4 1.11 ng/dL (0.76-1.46) 06/18/21 17:57 Hepatitis A IgM Ab Reactive (NonReactive) A 06/15/21 14:58 Hep Bs Antigen Nonreactive (Negative) 06/15/21 14:58 Hep B Core IgM Ab Non-reactive (NonReactive) 06/15/21 14:58 Hepatitis C Antibody Non-reactive (NonReactive) 06/15/21 14:58 Last Vital Signs Temp 97.7 F 06/20/21 08:42 Pulse 69 06/20/21 08:42 Resp 18 06/20/21 08:42 BP 122/84 06/20/21 08:42 Pulse Ox 100 06/20/21 08:42
--- NOTE | 2021-06-20 14:46 | Event Note ---
Date: 06/20/21 Medicine will be signing off on the patient. Please don't hesitate to reach out should any questions arise. Thank you for the interesting consult.
[2021-06-20] MEDS: traZODone 50 MG TAB PO SCH (21:42)
[2021-06-20] MEDS: QUEtiapine 100 MG TAB PO SCH (21:43)
[2021-06-21] MEDS: FAMOTIDINE 20 MG TAB PO SCH ×3 (07:58→16:32)
[2021-06-21] MEDS: buPROPion XL 150 MG TAB PO SCH (09:00)
[2021-06-21] MEDS: FLUoxetine 20 MG CAP PO SCH (09:01)
[2021-06-21] MEDS: DIVALPROEX DR 250 MG TAB PO SCH ×2 (09:01→21:02)
[2021-06-21] MEDS: QUEtiapine 100 MG TAB PO SCH ×2 (09:01→21:02)
--- NOTE | 2021-06-21 11:02 | Progress Note ---
Subjective Date of service: 06/21/21 Principal diagnosis: MDD Subjective Comment: The patient was seen today. He says he's doing okay. He denies SI/HI. The patient states he hears voices at times but they are getting better. He says he slept well REVIEW OF SYSTEMS Constitutional: Negative for weight loss ENT: Negative for stridor Respiratory: Negative for cough or hemoptysis All other systems reviewed and are negative MENTAL STATUS EXAMINATION General Appearance and Behavior: Age appropriate, dressed appropriately, calm and uncooperative Cooperation: noncooperative Psychomotor Behavior: psychomotor normal Mood: "pretty good" Affect and affective range: congruent with stated mood Thought Process: goal oriented Thought Content:Not suicidal Speech: Normal volume, Regular rate and rhythm, Intellectual Functioning: Average Suicidal Ideation:Denies Homicidal Ideation: Denies Hallucinations:Yes, auditory Delusions: None elicited Impulse Control: Unimpaired Insight and Judgment: limited insight and poor judgment, Memory: Normal Attention: divided Orientation: Alert, oriented Assessment and Plan (1) Schizophrenia-F20.9 Treatment Plan Patient admitted for inpatient psychiatric evaluation, medication adjustment and close monitoring The patient's behavior, mood, sleep and appetite will be closely monitored. Patient enrolled in individual and group therapeutic sessions and encouraged to attend. Patient provided with a safe and structured environment. Patient's physical health needs will be addressed by the Hospitalist. Hospitalist Consulted Labs including CBC, CMP, Lipid profile and Hemoglobin A1C levels ordered for baseline reference Social Assessment will be completed and the Redrawer will work with patient and family to ensure a suitable and safe disposition Medication adjustment will be made as clinically indicated Increased Seroquel 100mg po BID yesterday Increased Trazodone 75mg po qhs Yesterday No changes made yesterday Usual Wellness Restorationist/Preservation: - Start Trazodone 50 mg po QHS & 50 mg po QHS PRN between 10 PM & 2 AM for insomnia - Start Melatonin 5 mg po QHS to promote circadian rhythm The patient agreed on the treatment plan, understood the risk, benefit, alternative treatment, potential consequence of no treatment, and gave informed consent. Estimated days: 6 Post hospital care: primary care provider, psychiatric provider Case staffed with Dr. Chu Medications and Allergies Allergies Allergy/AdvReac Type Severity Reaction Status Date / Time haloperidol [From Haldol] AdvReac Unknown Verified 06/15/21 13:44 Home Medications Medication Instructions Recorded Confirmed Last Taken Type raNITIdine HCl [Zantac] 150 mg PO AC 05/02/16 06/16/21 Unknown History DULoxetine [Cymbalta] 90 mg PO DAILY #90 capsule 01/26/19 06/17/21 Unknown Rx QUEtiapine [SEROquel] 100 mg PO TID #90 tablet 01/26/19 06/16/21 1 Day Ago Rx ~03/18/19 buPROPion XL [Wellbutrin XL] 150 mg PO QDAY #30 tablet 01/26/19 06/16/21 Unknown Rx hydrOXYzine PAMOATE [Vistaril] 50 mg PO Q6H PRN #60 capsule 01/26/19 06/16/21 Unknown Rx traZODone [Desyrel] 50 mg PO QHS PRN #30 tablet 01/26/19 06/16/21 Unknown Rx FLUoxetine HCL [PROzac] 40 mg PO QDAY 03/19/19 06/16/21 1 Day Ago History ~03/18/19 FLUoxetine [PROzac] 30 mg PO QDAY #30 tablet 09/25/20 06/16/21 Unknown Rx QUEtiapine [SEROquel] 300 mg PO BID #60 tablet 09/25/20 06/16/21 Unknown Rx Active Meds: Active Medications Bupropion HCl (Bupropion Xl 150 Mg Tab) 150 mg PO QDAY [facility] Last Admin: 06/21/21 09:00 Dose: 150 mg Documented by: Divalproex Sodium (Divalproex Dr 250 Mg Tab) 250 mg PO BID [facility] Last Admin: 06/21/21 09:01 Dose: 250 mg Documented by: Famotidine (Famotidine 20 Mg Tab) 20 mg PO AC [facility] Last Admin: 06/21/21 07:58 Dose: 20 mg Documented by: Fluoxetine HCl (Fluoxetine 20 Mg Cap) 20 mg PO QDAY [facility] Last Admin: 06/21/21 09:01 Dose: 20 mg Documented by: Quetiapine Fumarate (Quetiapine 100 Mg Tab) 100 mg PO BID [facility] Last Admin: 06/21/21 09:01 Dose: 100 mg Documented by: Trazodone HCl (Trazodone 50 Mg Tab) 75 mg PO QHS [facility] Last Admin: 06/20/21 21:42 Dose: 75 mg Documented by: Results - Results Labs/Vitals: Laboratory Last Values WBC 6.5 K/mm3 (4.5-11.0) 06/18/21 17:57 RBC 4.29 M/mm3 (3.65-5.03) 06/18/21 17:57 Hgb 12.5 gm/dl (11.8-15.2) 06/18/21 17:57 Hct 37.8 % (35.5-45.6) 06/18/21 17:57 MCV 88 fl (84-94) 06/18/21 17:57 MCH 29 pg (28-32) 06/18/21 17:57 MCHC 33 % (32-34) 06/18/21 17:57 RDW 13.7 % (13.2-15.2) 06/18/21 17:57 Plt Count 175 K/mm3 (140-440) 06/18/21 17:57 Lymph % (Auto) 23.3 % (13.4-35.0) 06/18/21 17:57 [place] % (Auto) 9.4 % (0.0-7.3) H 06/18/21 17:57 Eos % (Auto) 2.1 % (0.0-4.3) 06/18/21 17:57 Baso % (Auto) 0.6 % (0.0-1.8) 06/18/21 17:57 Lymph # (Auto) 1.5 K/mm3 (1.2-5.4) 06/18/21 17:57 [place] # (Auto) 0.6 K/mm3 (0.0-0.8) 06/18/21 17:57 Eos # (Auto) 0.1 K/mm3 (0.0-0.4) 06/18/21 17:57 Baso # (Auto) 0.0 K/mm3 (0.0-0.1) 06/18/21 17:57 Seg Neutrophils % 64.6 % (40.0-70.0) 06/18/21 17:57 Seg Neutrophils # 4.2 K/mm3 (1.8-7.7) 06/18/21 17:57 Sodium 138 mmol/L (137-145) 06/18/21 17:57 Potassium 3.8 mmol/L (3.6-5.0) 06/18/21 17:57 Chloride 104.1 mmol/L (98-107) 06/18/21 17:57 Carbon Dioxide 23 mmol/L (22-30) 06/18/21 17:57 Anion Gap 15 mmol/L 06/18/21 17:57 BUN 13 mg/dL (9-20) 06/18/21 17:57 Creatinine 0.9 mg/dL (0.8-1.3) 06/18/21 17:57 Estimated GFR > 60 ml/min 06/18/21 17:57 BUN/Creatinine Ratio 14 % 06/18/21 17:57 Glucose 77 mg/dL (75-100) 06/18/21 17:57 POC Glucose 113 mg/dL (70-105) H 06/17/21 00:39 Calcium 9.0 mg/dL (8.4-10.2) 06/18/21 17:57 Phosphorus 3.90 mg/dL (2.5-4.5) 06/18/21 17:57 Magnesium 1.80 mg/dL (1.7-2.3) 06/18/21 17:57 Triglycerides 121 mg/dL (2-149) 06/18/21 17:57 Cholesterol 170 mg/dL (50-199) 06/18/21 17:57 LDL Cholesterol Direct 125 mg/dL (50-130) 06/18/21 17:57 HDL Cholesterol 37 mg/dL (40-59) L 06/18/21 17:57 Cholesterol/HDL Ratio 4.59 % 06/18/21 17:57 TSH 0.554 mlU/mL (0.270-4.200) 06/18/21 17:57 Free T4 1.11 ng/dL (0.76-1.46) 06/18/21 17:57 Hepatitis A IgM Ab Reactive (NonReactive) A 06/15/21 14:58 Hep Bs Antigen Nonreactive (Negative) 06/15/21 14:58 Hep B Core IgM Ab Non-reactive (NonReactive) 06/15/21 14:58 Hepatitis C Antibody Non-reactive (NonReactive) 06/15/21 14:58 Last Vital Signs Temp 97.7 F 06/20/21 08:42 Pulse 69 06/20/21 08:42 Resp 18 06/20/21 08:42 BP 122/84 06/20/21 08:42 Pulse Ox 100 06/20/21 08:42
[2021-06-21] MEDS: traZODone 50 MG TAB PO SCH (21:03)
[2021-06-22] MEDS: FAMOTIDINE 20 MG TAB PO SCH ×3 (08:16→16:47)
[2021-06-22] MEDS: QUEtiapine 100 MG TAB PO SCH ×2 (09:04→21:01)
[2021-06-22] MEDS: DIVALPROEX DR 250 MG TAB PO SCH ×2 (09:04→21:01)
[2021-06-22] MEDS: buPROPion XL 150 MG TAB PO SCH (09:04)
[2021-06-22] MEDS: FLUoxetine 20 MG CAP PO SCH (09:04)
--- NOTE | 2021-06-22 10:10 | Progress Note ---
Subjective Date of service: 06/22/21 Principal diagnosis: MDD Subjective Comment: The patient was seen today. He says he's doing better. He is calm, and cooperative with me, but nurse states he's been rude and hostile with her. He is asking for more food. He denies SI/HI or hallucinations of any kind. REVIEW OF SYSTEMS Constitutional: Negative for weight loss ENT: Negative for stridor Respiratory: Negative for cough or hemoptysis All other systems reviewed and are negative MENTAL STATUS EXAMINATION General Appearance and Behavior: Age appropriate, dressed appropriately, calm and uncooperative Cooperation: noncooperative Psychomotor Behavior: psychomotor normal Mood: "pretty good" Affect and affective range: congruent with stated mood Thought Process: goal oriented Thought Content:Not suicidal Speech: Normal volume, Regular rate and rhythm, Intellectual Functioning: Average Suicidal Ideation:Denies Homicidal Ideation: Denies Hallucinations:Yes, auditory Delusions: None elicited Impulse Control: Unimpaired Insight and Judgment: limited insight and poor judgment, Memory: Normal Attention: divided Orientation: Alert, oriented Assessment and Plan (1) Schizophrenia-F20.9 Treatment Plan Patient admitted for inpatient psychiatric evaluation, medication adjustment and close monitoring The patient's behavior, mood, sleep and appetite will be closely monitored. Patient enrolled in individual and group therapeutic sessions and encouraged to attend. Patient provided with a safe and structured environment. Patient's physical health needs will be addressed by the Hospitalist. Hospitalist Consulted Labs including CBC, CMP, Lipid profile and Hemoglobin A1C levels ordered for baseline reference Social Assessment will be completed and the Industrial Gas Production Operator will work with p atient and family to ensure a suitable and safe disposition Medication adjustment will be made as clinically indicated No changes made yesterday Usual Wellness Zoroastrianism/Preservation: - Start Trazodone 50 mg po QHS & 50 mg po QHS PRN between 10 PM & 2 AM for insomnia - Start Melatonin 5 mg po QHS to promote circadian rhythm The patient agreed on the treatment plan, understood the risk, benefit, alternative treatment, potential consequence of no treatment, and gave informed consent. Estimated days: 6 Post hospital care: primary care provider, psychiatric provider Case staffed with Dr. Chu Medications and Allergies Allergies Allergy/AdvReac Type Severity Reaction Status Date / Time haloperidol [From Haldol] AdvReac Unknown Verified 06/15/21 13:44 Home Medications Medication Instructions Recorded Confirmed Last Taken Type raNITIdine HCl [Zantac] 150 mg PO AC 05/02/16 06/16/21 Unknown History DULoxetine [Cymbalta] 90 mg PO DAILY #90 capsule 01/26/19 06/17/21 Unknown Rx QUEtiapine [SEROquel] 100 mg PO TID #90 tablet 01/26/19 06/16/21 1 Day Ago Rx ~03/18/19 buPROPion XL [Wellbutrin XL] 150 mg PO QDAY #30 tablet 01/26/19 06/16/21 Unknown Rx hydrOXYzine PAMOATE [Vistaril] 50 mg PO Q6H PRN #60 capsule 01/26/19 06/16/21 Unknown Rx traZODone [Desyrel] 50 mg PO QHS PRN #30 tablet 01/26/19 06/16/21 Unknown Rx FLUoxetine HCL [PROzac] 40 mg PO QDAY 03/19/19 06/16/21 1 Day Ago History ~03/18/19 FLUoxetine [PROzac] 30 mg PO QDAY #30 tablet 09/25/20 06/16/21 Unknown Rx QUEtiapine [SEROquel] 300 mg PO BID #60 tablet 09/25/20 06/16/21 Unknown Rx Active Meds: Active Medications Bupropion HCl (Bupropion Xl 150 Mg Tab) 150 mg PO QDAY [facility] Last Admin: 06/22/21 09:04 Dose: 150 mg Documented by: Divalproex Sodium (Divalproex Dr 250 Mg Tab) 250 mg PO BID [facility] Last Admin: 06/22/21 09:04 Dose: 250 mg Documented by: Famotidine (Famotidine 20 Mg Tab) 20 mg PO AC [facility] Last Admin: 06/22/21 08:16 Dose: 20 mg Documented by: Fluoxetine HCl (Fluoxetine 20 Mg Cap) 20 mg PO QDAY [facility] Last Admin: 06/22/21 09:04 Dose: 20 mg Documented by: Quetiapine Fumarate (Quetiapine 100 Mg Tab) 100 mg PO BID [facility] Last Admin: 06/22/21 09:04 Dose: 100 mg Documented by: Trazodone HCl (Trazodone 50 Mg Tab) 75 mg PO QHS [facility] Last Admin: 06/21/21 21:03 Dose: 75 mg Documented by: Results - Results Labs/Vitals: Laboratory Last Values WBC 6.5 K/mm3 (4.5-11.0) 06/18/21 17:57 RBC 4.29 M/mm3 (3.65-5.03) 06/18/21 17:57 Hgb 12.5 gm/dl (11.8-15.2) 06/18/21 17:57 Hct 37.8 % (35.5-45.6) 06/18/21 17:57 MCV 88 fl (84-94) 06/18/21 17:57 MCH 29 pg (28-32) 06/18/21 17:57 MCHC 33 % (32-34) 06/18/21 17:57 RDW 13.7 % (13.2-15.2) 06/18/21 17:57 Plt Count 175 K/mm3 (140-440) 06/18/21 17:57 Lymph % (Auto) 23.3 % (13.4-35.0) 06/18/21 17:57 [place] % (Auto) 9.4 % (0.0-7.3) H 06/18/21 17:57 Eos % (Auto) 2.1 % (0.0-4.3) 06/18/21 17:57 Baso % (Auto) 0.6 % (0.0-1.8) 06/18/21 17:57 Lymph # (Auto) 1.5 K/mm3 (1.2-5.4) 06/18/21 17:57 [place] # (Auto) 0.6 K/mm3 (0.0-0.8) 06/18/21 17:57 Eos # (Auto) 0.1 K/mm3 (0.0-0.4) 06/18/21 17:57 Baso # (Auto) 0.0 K/mm3 (0.0-0.1) 06/18/21 17:57 Seg Neutrophils % 64.6 % (40.0-70.0) 06/18/21 17:57 Seg Neutrophils # 4.2 K/mm3 (1.8-7.7) 06/18/21 17:57 Sodium 138 mmol/L (137-145) 06/18/21 17:57 Potassium 3.8 mmol/L (3.6-5.0) 06/18/21 17:57 Chloride 104.1 mmol/L (98-107) 06/18/21 17:57 Carbon Dioxide 23 mmol/L (22-30) 06/18/21 17:57 Anion Gap 15 mmol/L 06/18/21 17:57 BUN 13 mg/dL (9-20) 06/18/21 17:57 Creatinine 0.9 mg/dL (0.8-1.3) 06/18/21 17:57 Estimated GFR > 60 ml/min 06/18/21 17:57 BUN/Creatinine Ratio 14 % 06/18/21 17:57 Glucose 77 mg/dL (75-100) 06/18/21 17:57 POC Glucose 113 mg/dL (70-105) H 06/17/21 00:39 Calcium 9.0 mg/dL (8.4-10.2) 06/18/21 17:57 Phosphorus 3.90 mg/dL (2.5-4.5) 06/18/21 17:57 Magnesium 1.80 mg/dL (1.7-2.3) 06/18/21 17:57 Triglycerides 121 mg/dL (2-149) 06/18/21 17:57 Cholesterol 170 mg/dL (50-199) 06/18/21 17:57 LDL Cholesterol Direct 125 mg/dL (50-130) 06/18/21 17:57 HDL Cholesterol 37 mg/dL (40-59) L 06/18/21 17:57 Cholesterol/HDL Ratio 4.59 % 06/18/21 17:57 TSH 0.554 mlU/mL (0.270-4.200) 06/18/21 17:57 Free T4 1.11 ng/dL (0.76-1.46) 06/18/21 17:57 Hepatitis A IgM Ab Reactive (NonReactive) A 06/15/21 14:58 Hep Bs Antigen Nonreactive (Negative) 06/15/21 14:58 Hep B Core IgM Ab Non-reactive (NonReactive) 06/15/21 14:58 Hepatitis C Antibody Non-reactive (NonReactive) 06/15/21 14:58 Last Vital Signs Temp 98.9 F 06/21/21 20:04 Pulse 65 06/21/21 20:04 Resp 20 06/21/21 20:04 BP 122/69 06/21/21 20:04 Pulse Ox 98 06/21/21 20:04
[2021-06-22] MEDS: traZODone 50 MG TAB PO SCH (21:01)
[2021-06-23] MEDS: buPROPion XL 150 MG TAB PO SCH (09:08)
[2021-06-23] MEDS: FAMOTIDINE 20 MG TAB PO SCH ×2 (09:08→11:55)
[2021-06-23] MEDS: DIVALPROEX DR 250 MG TAB PO SCH (09:08)
[2021-06-23] MEDS: QUEtiapine 100 MG TAB PO SCH (09:09)
[2021-06-23] MEDS: FLUoxetine 20 MG CAP PO SCH (09:09)
[2021-06-23 09:23] VITALS: BP 114/74
--- NOTE | 2021-06-23 10:09 | Discharge Summary ---
Providers - Providers Date of Admission: 06/17/21 00:14 Date of discharge: 06/23/21 Attending physician: KENN CONTRERAS MD 06/16/21 16:45 Consult to Physician [CONS] Routine Comment: Consulting Provider: FRANCINE BROWNING Physician Instructions: Reason For Exam: manage existing medical conditions Primary care physician: TILE DECORATOR Hospitalization Reason for admission: SI Admitting Diagnosis: F20.9 - SCHIZOPHRENIA, UNSPECIFIED Condition: Stable Hospital course: The patient was provided inpatient psychiatric treatment with safe and supportive care, medication adjustment, adverse effect monitoring, medical evaluations, medical treatments, assessment and psycho-education. The patient's mood, cognition, behavior, moral support are improved and stabilized. St the time of discharge, the patient had no endangering behavior and no debilitating adverse effects. The patient agreed on potential consequences of no treatment and gave informed consent. 06/18/21:The patient was seen resting in bed. He reports not doing well. He continues to endorse suicidal ideation and auditory hallucination " voices telling me to kill myself." 06/19/21: The patient was seen resting in bed. He reports still being depressed but states mood as " pretty good." He denies suicidal ideation but continues to have auditory hallucinations. 06/20 The patient was seen today. He says he's not doing too good. He says he hasn't been sleeping. The patient states he's hearing voices that he can't make out. He denies SI/HI. 06/21 The patient was seen today. He says he's doing okay. He denies SI/HI. The patient states he hears voices at times but they are getting better. He says he slept well 06/22 The patient was seen today. He says he's doing better. He is calm, and cooperative with me, but nurse states he's been rude and hostile with her. He is asking for more food. He denies SI/HI or hallucinations of any kind. Disposition: 01 HOME / SELF CARE / HOMELESS Time spent for discharge: 35 Allergies/Adverse Reactions: Allergies haloperidol [From Haldol] Adverse Reaction (Verified 06/15/21 13:44) Unknown Vital Signs: Last Vital Signs Temp 97.9 F 06/23/21 09:18 Pulse 74 06/23/21 09:18 Resp 18 06/23/21 09:18 BP 114/74 06/23/21 09:18 Pulse Ox 99 06/23/21 09:18 Last Lab: Laboratory Last Values WBC 6.5 K/mm3 (4.5-11.0) 06/18/21 17:57 RBC 4.29 M/mm3 (3.65-5.03) 06/18/21 17:57 Hgb 12.5 gm/dl (11.8-15.2) 06/18/21 17:57 Hct 37.8 % (35.5-45.6) 06/18/21 17:57 MCV 88 fl (84-94) 06/18/21 17:57 MCH 29 pg (28-32) 06/18/21 17:57 MCHC 33 % (32-34) 06/18/21 17:57 RDW 13.7 % (13.2-15.2) 06/18/21 17:57 Plt Count 175 K/mm3 (140-440) 06/18/21 17:57 Lymph % (Auto) 23.3 % (13.4-35.0) 06/18/21 17:57 Bremer % (Auto) 9.4 % (0.0-7.3) H 06/18/21 17:57 Eos % (Auto) 2.1 % (0.0-4.3) 06/18/21 17:57 Baso % (Auto) 0.6 % (0.0-1.8) 06/18/21 17:57 Lymph # (Auto) 1.5 K/mm3 (1.2-5.4) 06/18/21 17:57 Bremer # (Auto) 0.6 K/mm3 (0.0-0.8) 06/18/21 17:57 Eos # (Auto) 0.1 K/mm3 (0.0-0.4) 06/18/21 17:57 Baso # (Auto) 0.0 K/mm3 (0.0-0.1) 06/18/21 17:57 Seg Neutrophils % 64.6 % (40.0-70.0) 06/18/21 17:57 Seg Neutrophils # 4.2 K/mm3 (1.8-7.7) 06/18/21 17:57 Sodium 138 mmol/L (137-145) 06/18/21 17:57 Potassium 3.8 mmol/L (3.6-5.0) 06/18/21 17:57 Chloride 104.1 mmol/L (98-107) 06/18/21 17:57 Carbon Dioxide 23 mmol/L (22-30) 06/18/21 17:57 Anion Gap 15 mmol/L 06/18/21 17:57 BUN 13 mg/dL (9-20) 06/18/21 17:57 Creatinine 0.9 mg/dL (0.8-1.3) 06/18/21 17:57 Estimated GFR > 60 ml/min 06/18/21 17:57 BUN/Creatinine Ratio 14 % 06/18/21 17:57 Glucose 77 mg/dL (75-100) 06/18/21 17:57 POC Glucose 113 mg/dL (70-105) H 06/17/21 00:39 Calcium 9.0 mg/dL (8.4-10.2) 06/18/21 17:57 Phosphorus 3.90 mg/dL (2.5-4.5) 06/18/21 17:57 Magnesium 1.80 mg/dL (1.7-2.3) 06/18/21 17:57 Triglycerides 121 mg/dL (2-149) 06/18/21 17:57 Cholesterol 170 mg/dL (50-199) 06/18/21 17:57 LDL Cholesterol Direct 125 mg/dL (50-130) 06/18/21 17:57 HDL Cholesterol 37 mg/dL (40-59) L 06/18/21 17:57 Cholesterol/HDL Ratio 4.59 % 06/18/21 17:57 TSH 0.554 mlU/mL (0.270-4.200) 06/18/21 17:57 Free T4 1.11 ng/dL (0.76-1.46) 06/18/21 17:57 Hepatitis A IgM Ab Reactive (NonReactive) A 06/15/21 14:58 Hep Bs Antigen Nonreactive (Negative) 06/15/21 14:58 Hep B Core IgM Ab Non-reactive (NonReactive) 06/15/21 14:58 Hepatitis C Antibody Non-reactive (NonReactive) 06/15/21 14:58 Core Measure Documentation - Palliative Care Palliative Care/ Comfort Measures: Not Applicable - Core Measures Any of the following diagnoses?: none Exam - Constitutional Vitals: Temp Pulse Resp BP Pulse Ox 97.9 F 74 18 114/74 99 06/23/21 09:18 06/23/21 09:18 06/23/21 09:18 06/23/21 09:18 06/23/21 09:18 General appearance: Present: no acute distress - EENT Eyes: Present: PERRL, EOM intact ENT: hearing intact, clear oral mucosa - Neck Neck: Present: supple, normal ROM - Respiratory Respiratory effort: normal Plan Activity: advance as tolerated Weight Bearing Status: Weight Bear as Tolerated Care Plan Goals: Maintain good and stable mental health Plan of Treatment: The patient should be compliant with medications, not to use drugs, and not to drink alcohol. The patient understands that if suicidal ideas, homicidal ideas or any endangering feeling arise, the patient should seek assistance including, but not limited to crisis hotline, and emergency room. Assessment: Schizophrenia Follow up with: PRIMARY CARE, [Primary Care Provider] - 7 Days Prescriptions: traZODone [Desyrel] 75 mg PO QHS #30 tablet Divalproex [Anastacia Landeros] 250 mg PO BID #60 tablet FLUoxetine [PROzac] 20 mg PO QDAY #30 capsule QUEtiapine [SEROquel] 100 mg PO BID #60 tablet hydrOXYzine PAMOATE [Vistaril] 50 mg PO Q6H PRN #60 capsule PRN Reason: Anxiety
== END 2021-06-23 12:18 | disposition home or self-care (01) | DRG 885 ==
LOC: UNDOADMIN 15:35 → 3A 15:35 → 5A 16:45 → UNDOADMIN 06-17 00:14 → UNDODISIN 06-23 12:18
PROVIDERS: ADMIT Psychiatry & Neurology Psychiatry; ATTEND Psychiatry & Neurology Psychiatry
DX: F20.9 Schizophrenia, unspecified (principal); K21.9 Gastro-esophageal reflux disease without esophagitis; Z20.822 Contact with and (suspected) exposure to COVID-19; F19.10 Other psychoactive substance abuse, uncomplicated; F32.9 Major depressive disorder, single episode, unspecified
CPT/HCPCS: 36415; 80048; 80061; 80074; 80307; 80320; 81001; 82962; 83735; 84100; 84439; 84443; 85025; 96372; 99285; G0378; G0480; J2060; U0003